=== PATIENT | male | born 1965 | race Caucasian/White ===

== ENCOUNTER 2019-07-29 09:07 | Emergency (ER) | payer MEDICAID ==
[~2019-07-29] VITALS: Ht 167.6 cm; Wt 77.3 kg
[~2019-07-29 09:07] MED LIST: BAC10T PO; DICL75TA PO; RES15C PO; TRAM50TA2 PO
[2019-07-29 10:02] VITALS: BP 115/75
== END 2019-07-29 10:03 | disposition home or self-care (01) ==
LOC: ER 09:07
DX: L98.8 Other specified disorders of the skin and subcutaneous tissue (principal); F12.90 Cannabis use, unspecified, uncomplicated
CPT/HCPCS: 99281

== ENCOUNTER 2019-09-08 13:44 | Inpatient (IN) | payer MEDICAID ==
[~2019-09-08] VITALS: Ht 167.6 cm; Wt 88.5 kg
[2019-09-08] MEDS ORDERED: METF-437 PO (14:24)
[2019-09-08] MEDS ORDERED: ATOR20TA66 PO (14:24)
[2019-09-08] MEDS ORDERED: SULI200T97 PO (14:24)
[2019-09-08] MEDS ORDERED: CARI4.5C PO (14:24)
[2019-09-08 14:33] LABS: BASOPHILS % (AUTO) 0.4 % (0-1); EOSINOPHILS # (AUTO) 0.2 X10'3 (0-0.9); EOSINOPHILS % (AUTO) 1.3 % (0-6); HEMATOCRIT 49.2 % (42.0-52.0); HEMOGLOBIN 17.1 g/dl (14.0-17.9); LYMPHOCYTES # (AUTO) 1.9 X10'3 (1.1-4.8); MEAN CORPUSCULAR HEMOGLOBIN 31.6 PG (27.0-31.0); MEAN CORPUSCULAR HGB CONC 34.7 g/dL (33.0-36.5); MEAN CORPUSCULAR VOLUME 90.9 FL (78-98); MONOCYTES # (AUTO) 0.8 X10'3 (0-0.9); MONOCYTES % (AUTO) 6.8 % (2-12); NEUTROPHILS # (AUTO) 9.5 X10'3 (1.8-7.7); NEUTROPHILS % (AUTO) 76.5 % (42-75); PLATELET COUNT 325 X10'3 (140-440); RED BLOOD COUNT 5.41 X10'6 (4.70-6.10); RED CELL DISTRIBUTION WIDTH 13.7 % (11.5-14.5); WHITE BLOOD COUNT 12.4 X10'3 (4.5-11.0)
--- NOTE | 2019-09-08 14:33 | NUR ---
ATTMPTED TO ASSIST PT UP TO BR. PT UNSTEADY ON FEET, SPEECH SLURED AND GARBLED, PT STATES HES DIZZY BECAUSE "I TOOK PILLS BEFORE I GOT HERE" INQUIRED TO WHAT PILLS? PT STATES I THINK I TOOK 3.5 PILLS OF ZYPREXIA AND A SLEEPING PILL" ROBBIE NOTIFIED
--- NOTE | 2019-09-08 14:34 | NUR ---
PT UNABLE TO GIVEN UA AT THIS TIME. PT GIVEN WATER AND STATES HE WILL ATTEMPT SHORTLY
--- NOTE | 2019-09-08 14:40 | NUR ---
PT COUGHING AND CHOKING AFTER EATING. ROBBIE NOTIFIED CXR ORDERED.
[2019-09-08] MEDS ORDERED: benzonatate 100mg capsule PO ONE (14:45)
[2019-09-08 14:54] LABS: ALANINE AMINOTRANSFERASE 35 U/L (12-78); ALBUMIN 4.4 G/DL (3.4-5.0); ALBUMIN/GLOBULIN RATIO 1.2 (1.1-1.5); ALKALINE PHOSPHATASE 106 IU/L (46-116); ANION GAP 7 (8-16); ASPARTATE AMINO TRANSFERASE 19 U/L (10-37); BILIRUBIN,TOTAL 0.5 MG/DL (0.1-1.0); BLOOD UREA NITROGEN 12 MG/DL (7-18); BUN/CREATININE RATIO 11.8 (5.4-32.0); CALCIUM 8.5 MG/DL (8.5-10.1); CHLORIDE 103 MMOL/L (99-107); CREATININE 1.02 MG/DL (0.60-1.10); GLUCOSE 143 MG/DL (70-104); POTASSIUM 3.4 MMOL/L (3.5-5.1); SODIUM 139 MMOL/L (135-145); TOTAL CARBON DIOXIDE 28.9 MMOL/L (24-32); TOTAL PROTEIN 8.2 G/DL (6.4-8.2); eGFR 76 ML/MIN
--- NOTE | 2019-09-08 15:00 | NUR ---
PT WITH INCREASED SOMULANCE. O2 SATES DOWN TO 84%. BP 90'S HR 110. VIKI MERCHANT AND ROBBIE NOTIFIED WILL MOVE PT TO BED 9 FOR INCREASED LEVEL OF CARE
[2019-09-08 15:02] LABS: ETHANOL < 0.010 GM/DL (0.0-0.010)
[2019-09-08] MEDS ORDERED: normal saline 1000ML IV soln IVB ONE (15:15)
--- NOTE | 2019-09-08 15:35 | NUR ---
PT MOVED FROM ER OF TO BED 09 IN MAIN ER
[2019-09-08] MEDS ORDERED: succinylcholine 20mg/ml inj IV ONE (16:21)
[2019-09-08 16:23] LABS: URINE AMPHETAMINE SCREEN NEGATIVE (Neg); URINE BARBITUATE SCREEN NEGATIVE (Neg); URINE BENZODIAZEPINES SCREEN NEGATIVE (Neg); URINE CANNABINOID SCREEN POSITIVE (Neg); URINE COCAINE SCREEN NEGATIVE (Neg); URINE METHADONE SCREEN NEGATIVE (Neg); URINE OPIATE SCREEN NEGATIVE (Neg); URINE PHENCYCLIDINE SCREEN NEGATIVE (Neg)
--- NOTE | 2019-09-08 16:26 | NUR ---
RN consulted with Sean Hoyos at Poison Control, who suspects Xyprexa overdose. RN was advised to monitor for coma of approx 24 hours, mild hypotension and QT prolongation; q4hr EKG and fluids as appropriate. Secondarily monitor for electrolyte imbalance and bradycardia.
[2019-09-08 16:30] LABS: ACETAMINOPHEN < 2.0 UG/ML (10-30)
[2019-09-08] MEDS ORDERED: ondansetron/PF 4mg/2ml inj IV PRN (18:20)
[2019-09-08] MEDS ORDERED: potassium CL 10mEq/100ml bag 100 ML IV PRN (18:20)
[2019-09-08] MEDS ORDERED: magnesium 2GM in 50ml NS 50 ML IV PRN (18:20)
[2019-09-08] MEDS ORDERED: LORazepam 1 MG tablet PO PRN (18:20)
[2019-09-08] MEDS ORDERED: magnesium Cl slow-release 64mg tablet PO PRN (18:20)
[2019-09-08] MEDS ORDERED: dextrose 50%-water 50ml dispensing syringe IV PRN ×3 (18:20→18:45)
[2019-09-08] MEDS ORDERED: potassium Cl 20 mEq SR tablet PO PRN ×2 (18:20)
[2019-09-08] MEDS ORDERED: acetaminophen 325mg tablet PO PRN ×2 (18:20)
[2019-09-08] MEDS ORDERED: LORazepam 2 mg/ml vial IV PRN (18:20)
[2019-09-08] MEDS ORDERED: magnesium 4gm in 100ml NS 100 ML IV PRN (18:20)
--- NOTE | 2019-09-08 18:43 | NUR ---
Pt is sleeping with snoring respirations. Pt is maintaining his own airway. Pt has stable vitals. Pt is awaiting inpatient bed assignment.
[2019-09-08] MEDS ORDERED: glucagon, human recombinant 1mg kit SUBCUT PRN (18:45)
[2019-09-08] MEDS ORDERED: dextrose ORAL solution 15 GM/59 ML bottle PO PRN ×2 (18:45)
[2019-09-08] MEDS ORDERED: insulin Lispro (HumaLOG) vial - multi-dose SQ SCH (18:45)
[2019-09-08] MEDS ORDERED: MESSAGE TO PHARMACY PO ONE (18:45)
[2019-09-08] MEDS: K and/or MAG REPLACEMENT MC SCH (20:00)
[2019-09-08] MEDS: normal saline 1000ml 1,000 ML IV SCH (20:02)
[2019-09-08 20:11] LABS: ABG BASE EXCESS -1.6 mmol/L (-2.0-3.0); ABG HCO3 23.8 mmol/L (22.0-26.0); ABG OXYGEN SATURATION 92.5 % (95-98); ABG PCO2 (T) 42.6 mmHg (35.0-45.0); ABG PH (T) 7.365 (7.350-7.450); ABG PO2 (T) 65.4 mmHg (83-108); FCOHb 5.4 % (0.5-1.5); FO2Hb 87.5 % (94-100); TOTAL HEMOGLOBIN 15.7 G/dl (14.0-17.9)
--- NOTE | 2019-09-08 20:19 | NUR ---
Pt confused and stood at the foot of the bed attempting to void. Pt given a urinal and attempted to assist with the urinal. Pt reports I cannot pee with you in here. Pt got back in the bed and reports he cannot void at this time. Pt returned to supine position and started snoring again immediately.
[2019-09-08] MEDS: insulin glargine (Lantus) pen - multi-dose SQ SCH (21:00)
[2019-09-08] MEDS: potassium CL 10mEq/100ml bag 100 ML IV PRN ×2 (21:35→22:37)
[2019-09-08] MEDS: heparin, porcine 5000 units/ml vial SQ SCH (21:38)
--- NOTE | 2019-09-08 22:09 | NUR ---
Pt is resting on the gurney with even and unlabored respirations.
[2019-09-08 23:07] LABS: CLARITY,URINE CLEAR (Clear); COLOR,URINE YELLOW (Yellow); GLUCOSE, URINE NEGATIVE (Neg); KETONES,URINE TRACE mg/dl (Neg); LEUKOCYTE ESTERASE ,URINE NEGATIVE (Neg); NITRITES, URINE NEGATIVE (Neg); OCCULT BLOOD,URINE NEGATIVE (Neg); PROTEIN,URINE NEGATIVE (Neg); UROBILINOGEN,URINE 0.2 E.U/dL (0.2-1.0)
[2019-09-08 23:08] LABS: UA COLLECTION TYPE URINAL
--- NOTE | 2019-09-08 23:44 | NUR ---
Krystal from Poison control phoned and inquired about the patient's status. She recommends redrawing the salicylate level to ensure the level is not rising. Provider will be notified.
[2019-09-09] MEDS: potassium CL 10mEq/100ml bag 100 ML IV PRN
--- NOTE | 2019-09-09 00:16 | NUR ---
Order for salicylate level entered based on recommendation of Poison control and unable to determine if the patient took other unknown substances and to insure the level is not trending upward.
[2019-09-09] MEDS: normal saline 1000ml 1,000 ML IV SCH (04:17)
--- NOTE | 2019-09-09 06:26 | NUR ---
PT RESTING ON RIGHT SIDE RR EQUAL AND UNLABORED
[2019-09-09] MEDS: K and/or MAG REPLACEMENT MC SCH ×2 (08:00→20:00)
--- NOTE | 2019-09-09 08:31 | NUR ---
PT STANDING UP IN HALLWAY, IV PULLED OUT, ALL VS EQUIPTMENT LAYING ON FLOOR. ORIENTED PT BACK TO ROOM. PT ORIENTED TO NAME, CONFUSED TO PLACE, TIME, OR EVENT. INFORMED MAYUR DREW OF PT OOB AND ROOM. NO SITTER AVALIBLE. CALL PLACED TO DR CONCEPCIÓN ORDOÑEZ POSSIBILITY OF SOFT RESTRAINTS. VERBAL ORDER GIVEN
[2019-09-09] MEDS: CARIPRAZINE 1.5 MG CAPSULE PO SCH ×2 (08:34→11:41)
[2019-09-09] MEDS: atorvastatin 20mg tablet PO SCH (08:35)
[2019-09-09] MEDS: heparin, porcine 5000 units/ml vial SQ SCH ×2 (10:12→20:00)
--- NOTE | 2019-09-09 10:33 | NUR ---
PT AWAKE, CONFUSED, REFUSING IV TO BE REPLACED, SITTING ON FLOOR. INFORMED PT HE WILL BE ADMITTED UP STAIRS. PT WITH CONTINUED QUESTIONS RE: VS, PO MEDS. PT INFORMED BECAUSE HE OD ON ZYPREXA.
--- NOTE | 2019-09-09 10:50 | NUR ---
PT REFUSING IV. WILL NOT COOPERATED AND IS ARGUMENTATIVE ABOUT HAVINE AND IV.
[2019-09-09 11:00] VITALS: BP 138/75
--- NOTE | 2019-09-09 11:15 | NUR ---
Received patient from ER. Patient refusing IV- thinks "we are trying to poison him". Will make MD aware.
--- NOTE | 2019-09-09 11:20 | NUR ---
PAGER ID: [phone] MESSAGE: [phone] Hubert Higginbotham- Patient noted with paranoia and refusing IV. States we "are trying to poison him". Padmaja [phone]
--- NOTE | 2019-09-09 11:30 | NUR ---
Spoke with MD Velázquez. Gave order for no IV and okay to adminster Milka.
--- NOTE | 2019-09-09 12:16 | NUR ---
DM consult: Pt with A1c 5.8, DM education not warranted at this time. Will continue to follow. Addendum: 09/09/19 at [address] Amended: Links added.
[2019-09-09 13:34] LABS: BASOPHILS % (AUTO) 0.2 % (0-1); EOSINOPHILS # (AUTO) 0.1 X10'3 (0-0.9); EOSINOPHILS % (AUTO) 1.2 % (0-6); HEMATOCRIT 46.4 % (42.0-52.0); LYMPHOCYTES # (AUTO) 2.3 X10'3 (1.1-4.8); LYMPHOCYTES % (AUTO) 24.9 % (21-51); MEAN CORPUSCULAR HEMOGLOBIN 31.7 PG (27.0-31.0); MEAN CORPUSCULAR HGB CONC 34.4 g/dL (33.0-36.5); MEAN PLATELET VOLUME 7.1 FL (7.4-10.4); MONOCYTES # (AUTO) 0.8 X10'3 (0-0.9); MONOCYTES % (AUTO) 8.4 % (2-12); NEUTROPHILS % (AUTO) 65.3 % (42-75); PLATELET COUNT 273 X10'3 (140-440); RED BLOOD COUNT 5.05 X10'6 (4.70-6.10); RED CELL DISTRIBUTION WIDTH 13.8 % (11.5-14.5); WHITE BLOOD COUNT 9.1 X10'3 (4.5-11.0)
[2019-09-09 13:47] LABS: ALANINE AMINOTRANSFERASE 29 U/L (12-78); ALBUMIN 3.8 G/DL (3.4-5.0); ALBUMIN/GLOBULIN RATIO 1.1 (1.1-1.5); ALKALINE PHOSPHATASE 100 IU/L (46-116); ANION GAP 4 (8-16); ASPARTATE AMINO TRANSFERASE 15 U/L (10-37); BILIRUBIN,TOTAL 0.4 MG/DL (0.1-1.0); BLOOD UREA NITROGEN 9 MG/DL (7-18); BUN/CREATININE RATIO 11.7 (5.4-32.0); CALCIUM 8.4 MG/DL (8.5-10.1); CHLORIDE 105 MMOL/L (99-107); CREATININE 0.77 MG/DL (0.60-1.10); GLUCOSE 102 MG/DL (70-104); MAGNESIUM 2.2 MG/DL (1.5-2.4); POTASSIUM 3.5 MMOL/L (3.5-5.1); SODIUM 141 MMOL/L (135-145); TOTAL PROTEIN 7.3 G/DL (6.4-8.2); eGFR > 90 ML/MIN
--- NOTE | 2019-09-09 15:07 | NUR ---
Spoke with MD Velázquez about patients paranoia and delusions. Dr. Velázquez will talk to Behavioral health MD microsoft solutions architect for psych eval.
--- NOTE | 2019-09-09 15:07 | NUR ---
PAGER ID: [phone] MESSAGE: [phone] Hubert Higginbotham- Can we get a psych eval for patient? Padmaja [phone]
--- NOTE | 2019-09-09 16:00 | NUR ---
Patient refused EKG, patient is anxious ativan 1mg PO given.
--- NOTE | 2019-09-09 16:39 | NUR ---
Jose Luis from behavioral health is here to evaluate patient. Jose Luis spoke on the phone with MD Velázquez. He is going to speak with Andrew Atkins to see if they can place him on a behavioral health unit elsewhere since there are no beds available on the 3rd floor.
--- NOTE | 2019-09-09 17:00 | NUR ---
Patient keeps removing tele monitor, states someone is trying to watch him.
[2019-09-09] MEDS ORDERED: LORazepam 1 MG tablet PO ONE (17:30)
--- NOTE | 2019-09-09 17:30 | NUR ---
Patient still refusing to wear tele monitor.
[2019-09-09 18:00] VITALS: BP 157/83
--- NOTE | 2019-09-09 18:39 | NUR ---
Problems reprioritized. Patient report given, questions answered & plan of care reviewed with Briana ESTES.
--- NOTE | 2019-09-09 19:02 | NUR ---
ASSUMED CARE OF PATIENT WITH VERBAL REPORT FROM MOSHE ESTES
[2019-09-09] MEDS: LORazepam 1 MG tablet PO SCH (19:52)
--- NOTE | 2019-09-09 20:00 | NUR ---
Patient refused scheduled EKG.
[2019-09-09] MEDS: insulin glargine (Lantus) pen - multi-dose SQ SCH (21:00)
--- NOTE | 2019-09-09 21:00 | NUR ---
Patient refused blood glucose test.
--- NOTE | 2019-09-09 22:00 | NUR ---
Patient refused 2200 vitals.
--- NOTE | 2019-09-10 | NUR ---
Patient refused 0000 EKG.
--- NOTE | 2019-09-10 00:08 | NUR ---
I faxed over the packet requested by Tony BOWERS from [facility], so patient can be seen by [facility] and placed. The charge nurse from [facility] said to fax the packet to them and they would contact the appropriate person for this consultation.
[2019-09-10] MEDS: LORazepam 1 MG tablet PO SCH ×4 (01:46→20:21)
--- NOTE | 2019-09-10 02:15 | NUR ---
I was observing the patient and he is biting his toes and fingernails because he doesn't have nail clippers; he is biting them hard I tried to discourage this behavior. He started getting verbally argumentative about not being able to get something to cut his nails with. I educated him on what the hospital has available and that it is not safe to be biting his fingers/ toes so hard. He also has been talking to " Natan " and saying that " Natan " is making him do things he doesn't want to do. He is Telling staff that they need to watch out because they are going to be harmed because the staff is helping him.
--- NOTE | 2019-09-10 06:26 | NUR ---
Problems reprioritized. Patient report given, questions answered & plan of care reviewed with Chitra ESTES.
--- NOTE | 2019-09-10 06:30 | NUR ---
NO CURRENT VS, PATIENT REFUSES
--- NOTE | 2019-09-10 06:31 | NUR ---
I HAVE REVIEWED AND AGREE WITH THE ASSESSMENT AND CARE GIVEN BY ZEINA RIOS
[2019-09-10] MEDS: heparin, porcine 5000 units/ml vial SQ SCH ×2 (08:00→20:00)
[2019-09-10] MEDS: K and/or MAG REPLACEMENT MC SCH ×2 (08:00→20:00)
[2019-09-10] MEDS: CARIPRAZINE 1.5 MG CAPSULE PO SCH (09:31)
[2019-09-10] MEDS: atorvastatin 20mg tablet PO SCH (09:33)
[2019-09-10 10:00] VITALS: BP 135/80
--- NOTE | 2019-09-10 10:15 | NUR ---
Call from Poison Control update given, question answered to the best of my ability. Patient continues to refuse lab draw or EKG secondary to paranoia and being framed for murder.
[2019-09-10 15:00] VITALS: BP 148/80
[2019-09-10 18:00] VITALS: BP 121/70
--- NOTE | 2019-09-10 18:13 | NUR ---
Report to Briana Sainz RN
[2019-09-10] MEDS: insulin glargine (Lantus) pen - multi-dose SQ SCH (21:00)
[2019-09-10 22:00] VITALS: BP 128/74
[2019-09-11 02:00] VITALS: BP 116/84
[2019-09-11] MEDS: LORazepam 1 MG tablet PO SCH ×3 (02:10→15:41)
[2019-09-11 06:00] VITALS: BP 124/86
--- NOTE | 2019-09-11 06:37 | NUR ---
Problems reprioritized. Patient report given, questions answered & plan of care reviewed with SWAPNA ESTES AND ROBERTON FELIBERTO RIVERA.
[2019-09-11 07:05] LABS: BASOPHILS % (AUTO) 0.2 % (0-1); EOSINOPHILS # (AUTO) 0.1 X10'3 (0-0.9); EOSINOPHILS % (AUTO) 2.1 % (0-6); HEMATOCRIT 47.1 % (42.0-52.0); HEMOGLOBIN 16.4 g/dl (14.0-17.9); LYMPHOCYTES # (AUTO) 1.7 X10'3 (1.1-4.8); LYMPHOCYTES % (AUTO) 24.9 % (21-51); MEAN CORPUSCULAR HEMOGLOBIN 31.7 PG (27.0-31.0); MEAN CORPUSCULAR HGB CONC 34.9 g/dL (33.0-36.5); MEAN CORPUSCULAR VOLUME 90.8 FL (78-98); MONOCYTES # (AUTO) 0.6 X10'3 (0-0.9); MONOCYTES % (AUTO) 8.3 % (2-12); NEUTROPHILS # (AUTO) 4.3 X10'3 (1.8-7.7); NEUTROPHILS % (AUTO) 64.5 % (42-75); PLATELET COUNT 277 X10'3 (140-440); RED BLOOD COUNT 5.19 X10'6 (4.70-6.10); RED CELL DISTRIBUTION WIDTH 13.8 % (11.5-14.5); WHITE BLOOD COUNT 6.7 X10'3 (4.5-11.0)
[2019-09-11 07:26] LABS: ALANINE AMINOTRANSFERASE 32 U/L (12-78); ALBUMIN 3.9 G/DL (3.4-5.0); ALKALINE PHOSPHATASE 95 IU/L (46-116); ANION GAP 8 (8-16); ASPARTATE AMINO TRANSFERASE 18 U/L (10-37); BILIRUBIN,TOTAL 0.5 MG/DL (0.1-1.0); BLOOD UREA NITROGEN 8 MG/DL (7-18); BUN/CREATININE RATIO 10.7 (5.4-32.0); CALCIUM 8.7 MG/DL (8.5-10.1); CHLORIDE 103 MMOL/L (99-107); CREATININE 0.75 MG/DL (0.60-1.10); GLUCOSE 123 MG/DL (70-104); MAGNESIUM 2.2 MG/DL (1.5-2.4); POTASSIUM 3.6 MMOL/L (3.5-5.1); SODIUM 140 MMOL/L (135-145); TOTAL CARBON DIOXIDE 28.9 MMOL/L (24-32); TOTAL PROTEIN 7.7 G/DL (6.4-8.2); eGFR > 90 ML/MIN
[2019-09-11] MEDS: K and/or MAG REPLACEMENT MC SCH (08:00)
[2019-09-11] MEDS: heparin, porcine 5000 units/ml vial SQ SCH (08:00)
[2019-09-11] MEDS: atorvastatin 20mg tablet PO SCH (08:01)
[2019-09-11] MEDS: CARIPRAZINE 1.5 MG CAPSULE PO SCH (08:02)
[2019-09-11 10:00] VITALS: BP 138/85
== END 2019-09-11 16:18 | DRG 812 ==
LOC: ER 13:44 → ED HOLD 18:17 → EDBEDREQ 09-09 09:01 → ORTHO 4S 09-09 11:03
PROVIDERS: ADMIT Internal Medicine; ATTEND Family Medicine
DX: T43.594A Poisoning by other antipsychotics and neuroleptics, undetermined, initial encounter (principal); G93.41 Metabolic encephalopathy; E11.9 Type 2 diabetes mellitus without complications; F20.9 Schizophrenia, unspecified; E78.00 Pure hypercholesterolemia, unspecified; Z60.2 Problems related to living alone; E78.5 Hyperlipidemia, unspecified; F12.90 Cannabis use, unspecified, uncomplicated; F32.9 Major depressive disorder, single episode, unspecified; F41.9 Anxiety disorder, unspecified; Y92.89 Other specified places as the place of occurrence of the external cause
CPT/HCPCS: 36415; 36600; 71045; 80053; 80305; 80320; 80329; 81003; 82803; 82948; 83036; 83605; 83735; 84443; 85018; 85025; 87040; 87081; 93005; 93308; 97110; 97116; 97161; 99285; G0378; J0330; J1644; J1815; J3480; J7030

== ENCOUNTER 2019-09-16 06:10 | Emergency (ER) | payer MEDICAID ==
[~2019-09-16] VITALS: Ht 167.6 cm; Wt 90.9 kg
[~2019-09-16 06:10] MED LIST changes: +ATOR20TA66 PO; -BAC10T PO; +CARI4.5C PO; -DICL75TA PO; +NICO-668 BC; -RES15C PO; +SULI200T97 PO; -TRAM50TA2 PO
[2019-09-16 06:11] VITALS: BP 164/104
[2019-09-16] MEDS ORDERED: LORazepam 1 MG tablet PO ONE (07:55)
[2019-09-16 08:01] LABS: BASOPHILS % (AUTO) 0.3 % (0-1); EOSINOPHILS # (AUTO) 0.1 X10'3 (0-0.9); EOSINOPHILS % (AUTO) 0.9 % (0-6); HEMATOCRIT 47.7 % (42.0-52.0); HEMOGLOBIN 16.9 g/dl (14.0-17.9); LYMPHOCYTES % (AUTO) 21.4 % (21-51); MEAN CORPUSCULAR HEMOGLOBIN 32.3 PG (27.0-31.0); MEAN CORPUSCULAR HGB CONC 35.4 g/dL (33.0-36.5); MEAN CORPUSCULAR VOLUME 91.2 FL (78-98); MEAN PLATELET VOLUME 6.9 FL (7.4-10.4); MONOCYTES # (AUTO) 0.8 X10'3 (0-0.9); MONOCYTES % (AUTO) 8.6 % (2-12); NEUTROPHILS # (AUTO) 6.3 X10'3 (1.8-7.7); NEUTROPHILS % (AUTO) 68.8 % (42-75); PLATELET COUNT 285 X10'3 (140-440); RED BLOOD COUNT 5.24 X10'6 (4.70-6.10); RED CELL DISTRIBUTION WIDTH 13.7 % (11.5-14.5); WHITE BLOOD COUNT 9.2 X10'3 (4.5-11.0)
[2019-09-16 08:14] LABS: ALANINE AMINOTRANSFERASE 37 U/L (12-78); ALBUMIN 4.6 G/DL (3.4-5.0); ALBUMIN/GLOBULIN RATIO 1.2 (1.1-1.5); ALKALINE PHOSPHATASE 100 IU/L (46-116); ANION GAP 9 (8-16); ASPARTATE AMINO TRANSFERASE 28 U/L (10-37); BILIRUBIN,TOTAL 0.6 MG/DL (0.1-1.0); BLOOD UREA NITROGEN 12 MG/DL (7-18); BUN/CREATININE RATIO 12.8 (5.4-32.0); CALCIUM 9.1 MG/DL (8.5-10.1); CHLORIDE 102 MMOL/L (99-107); CREATININE 0.94 MG/DL (0.60-1.10); GLUCOSE 121 MG/DL (70-104); POTASSIUM 3.7 MMOL/L (3.5-5.1); SODIUM 141 MMOL/L (135-145); TOTAL CARBON DIOXIDE 30.4 MMOL/L (24-32); TOTAL PROTEIN 8.3 G/DL (6.4-8.2); eGFR 84 ML/MIN
[2019-09-16 08:22] LABS: ETHANOL < 0.010 GM/DL (0.0-0.010)
[2019-09-16 08:25] LABS: CLARITY,URINE CLEAR (Clear); COLOR,URINE YELLOW (Yellow); GLUCOSE, URINE NEGATIVE (Neg); KETONES,URINE NEGATIVE (Neg); LEUKOCYTE ESTERASE ,URINE NEGATIVE (Neg); NITRITES, URINE NEGATIVE (Neg); OCCULT BLOOD,URINE NEGATIVE (Neg); PH,URINE 8.5 (4.8-8.0); PROTEIN,URINE NEGATIVE (Neg); UA COLLECTION TYPE CLN CATCH MIDSTREAM; UROBILINOGEN,URINE 0.2 E.U/dL (0.2-1.0)
[2019-09-16 08:42] LABS: URINE AMPHETAMINE SCREEN NEGATIVE (Neg); URINE BARBITUATE SCREEN NEGATIVE (Neg); URINE BENZODIAZEPINES SCREEN NEGATIVE (Neg); URINE CANNABINOID SCREEN POSITIVE (Neg); URINE COCAINE SCREEN NEGATIVE (Neg); URINE METHADONE SCREEN NEGATIVE (Neg); URINE OPIATE SCREEN NEGATIVE (Neg); URINE PHENCYCLIDINE SCREEN NEGATIVE (Neg)
[2019-09-16] MEDS ORDERED: LORA2TAB96 PO (08:46)
== END 2019-09-16 09:22 | disposition home or self-care (01) ==
LOC: ER 06:11
DX: G47.00 Insomnia, unspecified (principal); F29 Unspecified psychosis not due to a substance or known physiological condition; G89.29 Other chronic pain; F31.9 Bipolar disorder, unspecified; F20.9 Schizophrenia, unspecified; F12.90 Cannabis use, unspecified, uncomplicated; Z60.2 Problems related to living alone; Z79.899 Other long term (current) drug therapy
CPT/HCPCS: 36415; 80053; 80305; 80320; 81003; 84443; 85025; 99283

== ENCOUNTER 2019-09-18 09:36 | Emergency (ER) | payer MEDICAID ==
[~2019-09-18 09:36] MED LIST changes: +LORA2TAB96 PO
== END 2019-09-18 10:15 | disposition left against medical advice (07) ==
LOC: ER 09:37
DX: Z76.0 Encounter for issue of repeat prescription (principal); Z53.21 Procedure and treatment not carried out due to patient leaving prior to being seen by health care provider

== ENCOUNTER 2019-09-29 09:13 | Emergency (ER) | payer MEDICAID ==
[~2019-09-29] VITALS: Ht 167.6 cm; Wt 85.0 kg
[2019-09-29 10:07] LABS: BASOPHILS % (AUTO) 0.2 % (0-1); EOSINOPHILS # (AUTO) 0.1 X10'3 (0-0.9); EOSINOPHILS % (AUTO) 1.6 % (0-6); HEMATOCRIT 47.2 % (42.0-52.0); HEMOGLOBIN 15.9 g/dl (14.0-17.9); LYMPHOCYTES # (AUTO) 1.3 X10'3 (1.1-4.8); LYMPHOCYTES % (AUTO) 15.5 % (21-51); MEAN CORPUSCULAR HEMOGLOBIN 31.2 PG (27.0-31.0); MEAN CORPUSCULAR HGB CONC 33.7 g/dL (33.0-36.5); MEAN CORPUSCULAR VOLUME 92.4 FL (78-98); MONOCYTES # (AUTO) 0.5 X10'3 (0-0.9); NEUTROPHILS # (AUTO) 6.5 X10'3 (1.8-7.7); NEUTROPHILS % (AUTO) 76.7 % (42-75); PLATELET COUNT 285 X10'3 (140-440); WHITE BLOOD COUNT 8.5 X10'3 (4.5-11.0)
[2019-09-29 10:22] LABS: ALANINE AMINOTRANSFERASE 52 U/L (12-78); ALBUMIN/GLOBULIN RATIO 1.1 (1.1-1.5); ALKALINE PHOSPHATASE 109 IU/L (46-116); ANION GAP 8 (8-16); ASPARTATE AMINO TRANSFERASE 32 U/L (10-37); BILIRUBIN,TOTAL 0.4 MG/DL (0.1-1.0); BLOOD UREA NITROGEN 13 MG/DL (7-18); BUN/CREATININE RATIO 14.6 (5.4-32.0); CALCIUM 8.4 MG/DL (8.5-10.1); CHLORIDE 104 MMOL/L (99-107); CREATININE 0.89 MG/DL (0.60-1.10); GLUCOSE 179 MG/DL (70-104); POTASSIUM 3.5 MMOL/L (3.5-5.1); SODIUM 142 MMOL/L (135-145); TOTAL CARBON DIOXIDE 30.3 MMOL/L (24-32); TOTAL PROTEIN 7.7 G/DL (6.4-8.2); eGFR 89 ML/MIN
[2019-09-29 10:25] LABS: ETHANOL < 0.010 GM/DL (0.0-0.010)
[2019-09-29 10:49] LABS: URINE AMPHETAMINE SCREEN NEGATIVE (Neg); URINE BARBITUATE SCREEN NEGATIVE (Neg); URINE BENZODIAZEPINES SCREEN NEGATIVE (Neg); URINE CANNABINOID SCREEN POSITIVE (Neg); URINE COCAINE SCREEN NEGATIVE (Neg); URINE METHADONE SCREEN NEGATIVE (Neg); URINE OPIATE SCREEN NEGATIVE (Neg); URINE PHENCYCLIDINE SCREEN NEGATIVE (Neg)
--- NOTE | 2019-09-29 12:44 | NUR ---
pt in no distress. waiting on next steps
--- NOTE | 2019-09-29 13:06 | NUR ---
pt sleeping on gurney. in no obvious distress.
--- NOTE | 2019-09-29 13:13 | NUR ---
Spoke with [facility] on the telephone; need toxicology results faxed. Molder Operator to send report over before clinician will come evaluate pt.
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
--- NOTE | 2019-09-29 15:27 | NUR ---
5150 has been written for the pt.
[2019-09-29] MEDS ORDERED: NICO-668 MM (15:49)
[2019-09-29] MEDS ORDERED: LORA2TAB96 PO (15:49)
--- NOTE | 2019-09-29 15:56 | NUR ---
med rec faxed to pharmacy
[2019-09-29] MEDS ORDERED: NICOTINE POLACRILEX 2 MG LOZENGE BC PRN (16:10)
--- NOTE | 2019-09-29 16:26 | NUR ---
PT AMB WITH STEADY GAIT TO OVERFLOW
[2019-09-29] MEDS ORDERED: LORazepam 1 MG tablet PO PRN (16:58)
[2019-09-29 17:04] LABS: CLARITY,URINE CLEAR (Clear); COLOR,URINE YELLOW (Yellow); GLUCOSE, URINE 100 mg/dl (Neg); KETONES,URINE TRACE mg/dl (Neg); LEUKOCYTE ESTERASE ,URINE NEGATIVE (Neg); NITRITES, URINE NEGATIVE (Neg); OCCULT BLOOD,URINE NEGATIVE (Neg); PH,URINE 6.5 (4.8-8.0); PROTEIN,URINE NEGATIVE (Neg); UROBILINOGEN,URINE 0.2 E.U/dL (0.2-1.0)
[2019-09-29 17:05] LABS: UA COLLECTION TYPE CLN CATCH MIDSTREAM
--- NOTE | 2019-09-29 17:19 | NUR ---
PT RESTING QUIETLY ON BED
--- NOTE | 2019-09-29 17:54 | NUR ---
GAVE REPORT TO CLINICIAN AT [facility]
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
--- NOTE | 2019-09-29 18:09 | NUR ---
PT HAS BEEN ACCEPTED BY [facility] BY KIKI VANESSA AT 1755, ETA FOR PT TO LEAVE IN 20 TO 25 MINUTES (APPROX 1829)
--- NOTE | 2019-09-29 18:34 | NUR ---
Assumed care of patient, pt. sitting up in bed eating dinner at this time. RR even and unlabored.
--- NOTE | 2019-09-29 18:50 | NUR ---
Pt. discharged to [facility], left in transfer van accompanied by automobile drivers and security. Pt. is calm and cooperative with discharge. Called and gave report to MEERA Keyes
[2019-09-29 19:53] VITALS: BP 123/80
[2019-09-30] MEDS ORDERED: atorvastatin 20mg tablet PO SCH (08:00)
[2019-09-30] MEDS ORDERED: CARIPRAZINE 1.5 MG CAPSULE PO SCH (08:00)
== END 2019-09-29 19:58 ==
LOC: ER 09:13
DX: F32.9 Major depressive disorder, single episode, unspecified (principal); G89.29 Other chronic pain; F20.9 Schizophrenia, unspecified; F12.90 Cannabis use, unspecified, uncomplicated; Z60.2 Problems related to living alone; Z88.8 Allergy status to other drugs, medicaments and biological substances; Z79.899 Other long term (current) drug therapy
CPT/HCPCS: 36415; 80053; 80305; 80320; 81003; 85025; 99285

== ENCOUNTER 2020-04-17 18:23 | Emergency (ER) | payer MEDICAID ==
[~2020-04-17] VITALS: Ht 165.1 cm; Wt 70.0 kg
[~2020-04-17 18:23] MED LIST changes: -ATOR20TA66 PO; -CARI4.5C PO; -LORA2TAB96 PO; -NICO-668 BC; +NO HOME MEDS; +OLAN20TA34 PO; +OLAN5TAB26 PO; +TRAZ-251 PO
[2020-04-17 19:09] LABS: BASOPHILS % (AUTO) 0.4 % (0-1); EOSINOPHILS # (AUTO) 0.2 X10'3 (0-0.9); EOSINOPHILS % (AUTO) 2.6 % (0-6); HEMATOCRIT 42.4 % (42.0-52.0); HEMOGLOBIN 14.5 g/dl (14.0-17.9); LYMPHOCYTES % (AUTO) 34.1 % (21-51); MEAN CORPUSCULAR HEMOGLOBIN 31.7 PG (27.0-31.0); MEAN CORPUSCULAR HGB CONC 34.2 g/dL (33.0-36.5); MEAN CORPUSCULAR VOLUME 92.4 FL (78-98); MEAN PLATELET VOLUME 6.5 FL (7.4-10.4); MONOCYTES # (AUTO) 0.4 X10'3 (0-0.9); MONOCYTES % (AUTO) 7.3 % (2-12); NEUTROPHILS # (AUTO) 3.3 X10'3 (1.8-7.7); NEUTROPHILS % (AUTO) 55.6 % (42-75); PLATELET COUNT 311 X10'3 (140-440); RED BLOOD COUNT 4.59 X10'6 (4.70-6.10); RED CELL DISTRIBUTION WIDTH 13.3 % (11.5-14.5)
[2020-04-17] MEDS ORDERED: SULI200T97 PO (19:15)
[2020-04-17] MEDS ORDERED: OLAN20TA34 PO (19:15)
[2020-04-17] MEDS ORDERED: OLAN5TAB5 PO (19:15)
[2020-04-17 19:24] LABS: ALANINE AMINOTRANSFERASE 20 U/L (12-78); ALBUMIN/GLOBULIN RATIO 1.1 (1.1-1.5); ALKALINE PHOSPHATASE 87 IU/L (46-116); ANION GAP 5 (8-16); ASPARTATE AMINO TRANSFERASE 13 U/L (10-37); BILIRUBIN,TOTAL 0.4 MG/DL (0.1-1.0); BLOOD UREA NITROGEN 11 MG/DL (7-18); BUN/CREATININE RATIO 12.5 (5.4-32.0); CALCIUM 8.5 MG/DL (8.5-10.1); CHLORIDE 106 MMOL/L (99-107); CREATININE 0.88 MG/DL (0.60-1.10); GLUCOSE 82 MG/DL (70-104); POTASSIUM 3.4 MMOL/L (3.5-5.1); SODIUM 142 MMOL/L (135-145); TOTAL CARBON DIOXIDE 31.4 MMOL/L (24-32); TOTAL PROTEIN 7.5 G/DL (6.4-8.2); eGFR 90 ML/MIN
[2020-04-17 19:30] LABS: PARTIAL THROMBOPLASTIN TIME 33 SECONDS (22-32)
--- NOTE | 2020-04-17 19:59 | NUR ---
PATIENT STATES " I HAVE 2 DIABETES." MEDICAL HX SHOWS TYPE 2 DM, PER ZAHUER ORDER CARB CONTROLLED DIET
[2020-04-17] MEDS ORDERED: olanzapine 10mg tablet PO SCH (21:00)
--- NOTE | 2020-04-17 21:41 | NUR ---
resting in bed, eyes closed respirations even. in no apparent distress
--- NOTE | 2020-04-18 04:01 | NUR ---
patient sleeping undisturbed
--- NOTE | 2020-04-18 05:48 | NUR ---
Patient has been sleeping. Attempted to retreive urine, siad he couldn't go.
[2020-04-18 05:57] VITALS: BP 97/53
[2020-04-18 06:35] LABS: CLARITY,URINE CLEAR (Clear); COLOR,URINE YELLOW (Yellow); GLUCOSE, URINE NEGATIVE (Neg); KETONES,URINE NEGATIVE (Neg); LEUKOCYTE ESTERASE ,URINE NEGATIVE (Neg); NITRITES, URINE NEGATIVE (Neg); OCCULT BLOOD,URINE NEGATIVE (Neg); PROTEIN,URINE NEGATIVE (Neg); UA COLLECTION TYPE CLN CATCH MIDSTREAM; UROBILINOGEN,URINE 0.2 E.U/dL (0.2-1.0)
[2020-04-18 06:46] LABS: URINE AMPHETAMINE SCREEN NEGATIVE (Neg); URINE BARBITUATE SCREEN NEGATIVE (Neg); URINE BENZODIAZEPINES SCREEN NEGATIVE (Neg); URINE CANNABINOID SCREEN POSITIVE (Neg); URINE COCAINE SCREEN NEGATIVE (Neg); URINE METHADONE SCREEN NEGATIVE (Neg); URINE OPIATE SCREEN NEGATIVE (Neg); URINE PHENCYCLIDINE SCREEN NEGATIVE (Neg)
[2020-04-18] MEDS ORDERED: OLANZapine 5mg rapidly disint. tablet PO SCH (08:00)
--- NOTE | 2020-04-18 08:27 | NUR ---
PT SLEEPING, WOKEN FOR AM MEDICATIONS, SAFETY BREAKFAST TRAY DELIVERED TO BEDSIDE.
--- NOTE | 2020-04-18 08:51 | NUR ---
[facility] OFFICE CALLED, NO PACKET HAS BEEN RECEIVED AND REQUESTING AN ETOH LEVEL ADDED TO LABS. ETOH LEVEL ADDED REQUESTED AND CYBER REVERSE ENGINEER TO SEND PACKET.
--- NOTE | 2020-04-18 09:10 | NUR ---
SPOKE WITH PT, HE STATES THAT HE STILL IS HAVING THOUGHT OF SI AND HEARING VOICES. PT STATES THAT HE HAS TO DO WHAT THE VOICES ARE TELLING HIM; "I HAVE NOT CONTROL OF THE VOICES AND WHAT THEY ARE SAYING". PT STATES THAT THEY TELL HIM TO WALK OUT IN THE ROAD. PT STATES THAT HE IS ALWAYS HAVING SI THOUGHTS, THAT HE WOULD BE "BETTER OFF ". PT HAS NO SPACIFIC PLAN BUT STATES THAT HE HAS MADE ATTEMPTS BEFORE AND HAS WALKED OUT INTO TRAFFIC.
[2020-04-18 09:53] LABS: ETHANOL < 0.010 GM/DL (0.0-0.010)
--- NOTE | 2020-04-18 10:00 | NUR ---
ETOH RESULTS POSTED FROM LAB, RESULTS FAXED TO [facility] OFFICE AND [facility] OFFICE WAS NOTIFIED.
--- NOTE | 2020-04-18 10:56 | NUR ---
ANGELIQUE FROM [facility] AT BEDSIDE FOR EVALUATION.
--- NOTE | 2020-04-18 13:41 | NUR ---
Staff Nurse at [facility] in [place] phoned to inquire about the patient's status to consider accepting him for admission to the facility. He will review the patient's status with the Physician and will phone to let us know of their decision.
--- NOTE | 2020-04-18 13:59 | NUR ---
[facility] OFFICE CALLED WITH ACCETANCE TO [facility]. DR KEN LAYNE ACCEPTED, TRANSPORT ETA:1700
--- NOTE | 2020-04-18 17:06 | NUR ---
LIVIER, SALES DESIGNER FROM [facility] IS HERE TO TRANSPORT PT TO [facility]. PT'S BELONGINGS RETURNED AND PT DRESSED. SECURITY STANDING BY FOR EXCORT TO TRANSPORT VAN
== END 2020-04-18 17:12 ==
LOC: ER 18:23
DX: R45.851 Suicidal ideations (principal); G89.29 Other chronic pain; F31.9 Bipolar disorder, unspecified; F20.9 Schizophrenia, unspecified; F12.90 Cannabis use, unspecified, uncomplicated; Z60.2 Problems related to living alone; Z88.8 Allergy status to other drugs, medicaments and biological substances; Z79.899 Other long term (current) drug therapy
CPT/HCPCS: 36415; 80053; 80305; 80320; 81003; 85025; 85610; 85730; 99285

== ENCOUNTER 2022-04-03 12:47 | Inpatient (IN) | payer MEDICAID ==
[~2022-04-03] VITALS: Ht 170.2 cm; Wt 95.7 kg
[~2022-04-03 12:47] MED LIST changes: -NO HOME MEDS; -OLAN5TAB26 PO; +OLAN5TAB5 PO; -TRAZ-251 PO
[2022-04-03 14:25] LABS: BASOPHILS % (AUTO) 0.5 % (0-1); EOSINOPHILS # (AUTO) 0.2 X10'3 (0-0.9); EOSINOPHILS % (AUTO) 3.4 % (0-6); HEMATOCRIT 43.3 % (42.0-52.0); HEMOGLOBIN 15.2 g/dl (14.0-17.9); LYMPHOCYTES # (AUTO) 2.1 X10'3 (1.1-4.8); LYMPHOCYTES % (AUTO) 29.9 % (21-51); MEAN CORPUSCULAR HEMOGLOBIN 30.8 PG (27.0-31.0); MEAN CORPUSCULAR HGB CONC 35.1 g/dL (33.0-36.5); MEAN CORPUSCULAR VOLUME 87.7 FL (78-98); MONOCYTES # (AUTO) 0.5 X10'3 (0-0.9); MONOCYTES % (AUTO) 7.5 % (2-12); NEUTROPHILS # (AUTO) 4.1 X10'3 (1.8-7.7); NEUTROPHILS % (AUTO) 58.7 % (42-75); PLATELET COUNT 286 X10'3 (140-440); RED BLOOD COUNT 4.93 X10'6 (4.70-6.10)
[2022-04-03 14:33] LABS: ALANINE AMINOTRANSFERASE 49 U/L (12-78); ALBUMIN 4.2 G/DL (3.4-5.0); ALBUMIN/GLOBULIN RATIO 1.2 (1.1-1.5); ALKALINE PHOSPHATASE 97 IU/L (46-116); ANION GAP 10 (8-16); ASPARTATE AMINO TRANSFERASE 17 U/L (10-37); BILIRUBIN,TOTAL 0.3 MG/DL (0.1-1.0); BLOOD UREA NITROGEN 11 MG/DL (7-18); BUN/CREATININE RATIO 12.2 (5.4-32.0); CALCIUM 9.3 MG/DL (8.5-10.1); CHLORIDE 100 MMOL/L (99-107); GLUCOSE 173 MG/DL (70-104); POTASSIUM 3.7 MMOL/L (3.5-5.1); SODIUM 137 MMOL/L (135-145); TOTAL CARBON DIOXIDE 26.6 MMOL/L (24-32); TOTAL PROTEIN 7.6 G/DL (6.4-8.2); eGFR 87 ML/MIN
[2022-04-03 14:42] LABS: ETHANOL < 0.010 GM/DL (0.0-0.010)
[2022-04-03] MEDS ORDERED: DOCU-148 PO (14:59)
[2022-04-03] MEDS ORDERED: CLOZ200T8 PO (14:59)
[2022-04-03] MEDS ORDERED: HYDR-3927 PO (14:59)
[2022-04-03] MEDS ORDERED: OLAN5TAB3 PO (14:59)
[2022-04-03] MEDS ORDERED: SALI45LI PO (14:59)
[2022-04-03] MEDS ORDERED: LORA10TA7 PO (14:59)
[2022-04-03] MEDS ORDERED: TEMA15CA5 PO (14:59)
[2022-04-03] MEDS ORDERED: TEMA15CA PO (14:59)
[2022-04-03] MEDS ORDERED: CHOL20004 PO (14:59)
[2022-04-03] MEDS ORDERED: VITA-288 PO (14:59)
[2022-04-03] MEDS ORDERED: METF-436 PO (14:59)
[2022-04-03] MEDS ORDERED: LORA-269 PO (15:04)
[2022-04-03] MEDS ORDERED: FLUT16SP2 BOTHNARES (15:04)
[2022-04-03] MEDS ORDERED: FENO48TA10 PO (15:04)
[2022-04-03] MEDS ORDERED: FLONASE NAS (15:04)
[2022-04-03 16:16] LABS: BILIRUBIN,DIRECT 0.1 MG/DL (0-0.3)
[2022-04-03 16:42] LABS: CLARITY,URINE CLEAR (Clear); GLUCOSE, URINE 250 mg/dl (Neg); KETONES,URINE NEGATIVE (Neg); LEUKOCYTE ESTERASE ,URINE NEGATIVE (Neg); NITRITES, URINE NEGATIVE (Neg); OCCULT BLOOD,URINE NEGATIVE (Neg); PH,URINE 5.5 (4.8-8.0); PROTEIN,URINE NEGATIVE (Neg); UROBILINOGEN,URINE 0.2 E.U/dL (0.2-1.0)
[2022-04-03 17:01] LABS: COLOR,URINE STRAW (Yellow); UA COLLECTION TYPE CLN CATCH MIDSTREAM; URINE AMPHETAMINE SCREEN NEGATIVE (Neg); URINE BARBITUATE SCREEN NEGATIVE (Neg); URINE BENZODIAZEPINES SCREEN NEGATIVE (Neg); URINE CANNABINOID SCREEN NEGATIVE (Neg); URINE COCAINE SCREEN NEGATIVE (Neg); URINE METHADONE SCREEN NEGATIVE (Neg); URINE OPIATE SCREEN NEGATIVE (Neg); URINE PHENCYCLIDINE SCREEN NEGATIVE (Neg)
--- NOTE | 2022-04-03 17:31 | NUR ---
[facility] packet faxed.
[2022-04-04] MEDS ORDERED: LORazepam 1 MG tablet PO PRN
--- NOTE | 2022-04-04 11:56 | NUR ---
patient in the room, asleep.
--- NOTE | 2022-04-04 16:00 | NUR ---
Pt brought from main ED room 14 and brought back to overflow bed 26. Pt being orientated to environment.
[2022-04-04] MEDS ORDERED: loratadine 10mg tablet PO PRN (17:40)
[2022-04-04] MEDS ORDERED: hydrOXYzine 25 MG tablet PO PRN (17:40)
[2022-04-04] MEDS ORDERED: temazepam 15mg capsule PO PRN (17:40)
[2022-04-04] MEDS ORDERED: temazepam 15mg capsule PO ONE (17:40)
[2022-04-04] MEDS ORDERED: OLANZAPINE 5 MG TABLET PO PRN (17:40)
[2022-04-04] MEDS: fluticasone nasal spray 16GM bottle NS SCH (20:00)
[2022-04-04] MEDS ORDERED: [UNRECOGNIZED DRUG - REMARK] PO SCH (21:00)
[2022-04-04] MEDS: metFORMIN 500mg tablet PO SCH (23:01)
[2022-04-04] MEDS: LORazepam 1 MG tablet PO SCH (23:01)
[2022-04-04] MEDS: clozapine 100mg tablet PO SCH (23:18)
[2022-04-05] MEDS: fluticasone nasal spray 16GM bottle NS SCH ×2 (08:33→20:00)
[2022-04-05] MEDS: LORazepam 1 MG tablet PO SCH ×3 (08:34→20:11)
[2022-04-05] MEDS: docusate sod 100mg capsule PO SCH (08:34)
[2022-04-05] MEDS: metFORMIN 500mg tablet PO SCH ×3 (08:35→20:11)
[2022-04-05] MEDS: cholecalciferol (vitamin D3) 1,000 unit (25mcg) tablet PO SCH (08:35)
[2022-04-05] MEDS: fenofibrate 48mg tablet PO SCH (08:36)
[2022-04-05] MEDS: vitamin E 400 unit capsule PO SCH (08:36)
[2022-04-05] MEDS: clozapine 100mg tablet PO SCH (21:25)
--- NOTE | 2022-04-05 22:13 | NUR ---
Pt arrived on floor 2124. Assessment completed, HS meds given pt asleep at this time.
--- NOTE | 2022-04-06 01:14 | NUR ---
Pt sleeping resp even and unlabored.
--- NOTE | 2022-04-06 03:20 | NUR ---
Pt sleeping resp even and unlabored.
--- NOTE | 2022-04-06 05:22 | NUR ---
Pt sleeping resp even and unlabored.
[2022-04-06] MEDS: cholecalciferol (vitamin D3) 1,000 unit (25mcg) tablet PO SCH (07:51)
[2022-04-06] MEDS: metFORMIN 500mg tablet PO SCH ×3 (07:51→20:53)
[2022-04-06] MEDS: fluticasone nasal spray 16GM bottle NS SCH ×2 (07:51→20:18)
[2022-04-06] MEDS: docusate sod 100mg capsule PO SCH (07:51)
[2022-04-06] MEDS: LORazepam 1 MG tablet PO SCH ×3 (07:51→20:54)
[2022-04-06] MEDS: vitamin E 400 unit capsule PO SCH (07:53)
[2022-04-06] MEDS: fenofibrate 48mg tablet PO SCH (08:07)
--- NOTE | 2022-04-06 14:39 | NUR ---
[facility] CALLED TO REPORT THAT MR. IBRAHIM WAS ACCEPTED INTO [facility].
[2022-04-06] MEDS: clozapine 100mg tablet PO SCH (20:53)
[2022-04-06] MEDS ORDERED: loperamide 2mg capsule PO PRN (22:25)
[2022-04-06] MEDS ORDERED: acetaminophen 325mg tablet PO PRN (22:25)
[2022-04-06] MEDS ORDERED: magnesium hydroxide 30ml (MOM) UD suspension PO PRN (22:25)
[2022-04-06] MEDS ORDERED: mag hydrox/Alum hydrox/simeth 30ml oral suspension PO PRN (22:25)
[2022-04-06] MEDS ORDERED: NICOTINE POLACRILEX 2 MG LOZENGE BC PRN (23:55)
--- NOTE | 2022-04-06 23:59 | NUR ---
Admission Note: 56 year old male, admitted from ER overflow for DTS/GD. He has been residing at [facility] for the past two weeks, which according to the patient has caused increase in his depression. Prior to that he was at an IMD in [place]. Pt reports some thoughts of suicide with plan to break neck from falling off a chair or hanging himself. Pt also believes he has an implant in which he can be controlled with. He was brought to the unit via wheelchair with security and PCT Wily contraband check completed by Wily. Skin check completed by myself and Jocelyn WELLS, skin is clear on admit. Pt is conserved with [facility] and has a diagnosis of Schizoaffective D/O, as well as DMII.
[2022-04-07 00:07] VITALS: BP 124/77
[2022-04-07 08:00] VITALS: BP 119/76
[2022-04-07] MEDS: cholecalciferol (vitamin D3) 1,000 unit (25mcg) tablet PO SCH (08:19)
[2022-04-07] MEDS: metFORMIN 500mg tablet PO SCH ×3 (08:19→20:55)
[2022-04-07] MEDS: LORazepam 1 MG tablet PO SCH ×3 (08:19→20:56)
[2022-04-07] MEDS: docusate sod 100mg capsule PO SCH (08:19)
[2022-04-07] MEDS: fenofibrate 48mg tablet PO SCH (08:19)
[2022-04-07] MEDS: vitamin E 400 unit capsule PO SCH ×2 (08:19→20:56)
[2022-04-07] MEDS: fluticasone nasal spray 16GM bottle NS SCH ×2 (08:22→20:57)
[2022-04-07 09:23] LABS: CHOL/HDL RATIO 7.3 (0.00-4.99); CHOLESTEROL 218 MG/DL (0-200); HDL CHOLESTEROL 30 MG/DL (35-60); LDL CHOLESTEROL 105 MG/DL (50-100); TRIGLYCERIDES 524 MG/DL (20-135)
--- NOTE | 2022-04-07 14:55 | NUR ---
Problem : 56 year old male, admitted from ER overflow for DTS/GD. He has been residing at [facility] for the past two weeks, which according to the patient has caused increase in his depression. Prior to that he was at an IMD in [place]. Pt reports some thoughts of suicide with plan to break neck from falling off a chair or hanging himself. Pt also believes he has an implant in which he can be controlled with. Interventions : 1:1 assessment, therapeutic communication, active listening, medication administration/education/monitoring, ensured contract for safety, provided distraction, redirection, attempted reality orientation, Q15 minute safety checks. Response : Pt was up for breakfast. FS BG AC breakfast was 150. HgbA1c was 6.7. Pt continues on Metformin 500 mg TID. Pt was pacing the hallways after breakfast. Pt appeared lost and he was. Pt stated that he forgot where his room was. Pt was directed to his room. Pt has fixed delusions. Pt was reluctant to talk about them because "it's embarrassing." Pt states that he knows it sounds off the wall. Pt reports that he has implants or transmitters that were placed by law enforcement while he was under the effects of sodium pentothal. Plan : Pt needs stabilization and monitoring in a safe and therapeutic environment until no longer an acute DTS.
[2022-04-07 20:00] VITALS: BP 138/81
[2022-04-07] MEDS: clozapine 100mg tablet PO SCH (20:56)
--- NOTE | 2022-04-08 05:19 | NUR ---
Problem : 56 year old male, admitted from ER overflow for DTS/GD. He has been residing at [facility] for the past two weeks, which according to the patient has caused increase in his depression. Prior to that he was at an IMD in [place]. Pt reports some thoughts of suicide with plan to break neck from falling off a chair or hanging himself. Pt also believes he has an implant in which he can be controlled with. Interventions : 1:1 assessment, therapeutic communication, active listening, medication administration/education/monitoring, ensured contract for safety, provided distraction, redirection, attempted reality orientation, Q15 minute safety checks. Response : Patient is pleasant and cooperative with care; compliant with medication. He endorses SI and AH; expressing delusional thought content. "I have multiple microchips in my head and I hear the Sherifs all the time. It's hard to not be suicidal." When he continued to talk AH he was explaining feeling tormented. Patient participated in HS snack and watched tv in the community room prior to bed; observed sleeping and does not appear to be having difficulty. Plan : Pt needs stabilization and monitoring in a safe and therapeutic environment until no longer an acute DTS.
[2022-04-08 07:25] VITALS: BP 105/65
[2022-04-08] MEDS: cholecalciferol (vitamin D3) 1,000 unit (25mcg) tablet PO SCH (08:01)
[2022-04-08] MEDS: metFORMIN 500mg tablet PO SCH ×3 (08:01→20:15)
[2022-04-08] MEDS: docusate sod 100mg capsule PO SCH (08:01)
[2022-04-08] MEDS: LORazepam 1 MG tablet PO SCH ×3 (08:01→20:15)
[2022-04-08] MEDS: fenofibrate 48mg tablet PO SCH (08:02)
[2022-04-08] MEDS: fluticasone nasal spray 16GM bottle NS SCH ×2 (08:03→20:15)
--- NOTE | 2022-04-08 14:01 | NUR ---
Nursing Progress Note: Problem : 56 year old male, admitted from ER overflow for DTS/GD. He has been residing at [facility] for the past two weeks, which according to the patient has caused increase in his depression. Prior to that he was at an IMD in [place]. Pt reports some thoughts of suicide with plan to break neck from falling off a chair or hanging himself. Pt also believes he has an implant in which he can be controlled with. Interventions : 1:1 assessment, therapeutic communication, active listening, medication administration/education/monitoring, ensured contract for safety, provided distraction, redirection, attempted reality orientation, Q15 minute safety checks. Response : FS BG AC breakfast was 162. Pt was cooperative with medications. Pt rated his depression today at a 4 or 5 out of 10. Pt denied SI. Pt denied hearing voices or noises from the chips in his head. Pt mostly only comes out of his room for meals. His affect is blunted with brief expressions of irritation. He is mostly isolative to self. Plan : Pt needs stabilization and monitoring in a safe and therapeutic environment until no longer an acute DTS.
[2022-04-08 20:00] VITALS: BP 104/74
[2022-04-08] MEDS: clozapine 100mg tablet PO SCH (20:15)
--- NOTE | 2022-04-09 01:56 | NUR ---
Nursing Progress Note: Higginbotham Problem : 56 year old male, admitted from ER overflow for DTS/GD. He has been residing at [facility] for the past two weeks, which according to the patient has caused increase in his depression. Prior to that he was at an IMD in [place]. Pt reports some thoughts of suicide with plan to break neck from falling off a chair or hanging himself. Pt also believes he has an implant in which he can be controlled with. Interventions : 1:1 assessment, therapeutic communication, active listening, medication administration/education/monitoring, ensured contract for safety, provided distraction, redirection, attempted reality orientation, Q15 minute safety checks. Response : Received pt sitting in his room. Cooperative with care. Pt denies depression and anxiety but states there is going to beits going to happen. When asked to elaborate pt states he has an implant and he hears the materials coordinator talking about him and its not good. He believes we will kick him out on the streets and he cant live that way. Re-assured pt that we will not put him in the streets. Pt participated in snacks and was in the community room watching TV with peers for a while. Took all HS medications without issue. Plan : Pt needs stabilization and monitoring in a safe and therapeutic environment until no longer an acute DTS.
[2022-04-09 07:59] VITALS: BP 112/75
[2022-04-09] MEDS: metFORMIN 500mg tablet PO SCH ×3 (08:00→20:15)
[2022-04-09] MEDS: docusate sod 100mg capsule PO SCH (08:00)
[2022-04-09] MEDS: vitamin E 400 unit capsule PO SCH (08:00)
[2022-04-09] MEDS: fenofibrate 48mg tablet PO SCH (08:00)
[2022-04-09] MEDS: LORazepam 1 MG tablet PO SCH ×3 (08:01→20:15)
[2022-04-09] MEDS: cholecalciferol (vitamin D3) 1,000 unit (25mcg) tablet PO SCH (08:01)
[2022-04-09] MEDS: fluticasone nasal spray 16GM bottle NS SCH ×2 (08:01→20:15)
--- NOTE | 2022-04-09 09:36 | NUR ---
Initial: Pt admitted w/ SI and schizophrenia per EMR. Currently on Carb control/Heart Healthy diet w/ mostly 100% intake of meals meeting est needs at this time. LBM 04/05. No nutrition intervention implemented at this time, will continue to monitor. Recs; 1. Continue Carb control/Heart Healthy diet as tolerated 2. Bowel care per rx 3. Weekly wts Addendum: 04/09/22 at [address] Amended: Links added.
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
[2022-04-09 18:28] LABS: BASOPHILS % (AUTO) 0.4 % (0-1); EOSINOPHILS # (AUTO) 0.3 X10'3 (0-0.9); EOSINOPHILS % (AUTO) 4.1 % (0-6); HEMATOCRIT 41.2 % (42.0-52.0); HEMOGLOBIN 14.4 g/dl (14.0-17.9); LYMPHOCYTES # (AUTO) 2.4 X10'3 (1.1-4.8); LYMPHOCYTES % (AUTO) 38.2 % (21-51); MEAN CORPUSCULAR HEMOGLOBIN 31.1 PG (27.0-31.0); MEAN CORPUSCULAR HGB CONC 34.9 g/dL (33.0-36.5); MEAN CORPUSCULAR VOLUME 89.1 FL (78-98); MEAN PLATELET VOLUME 7.3 FL (7.4-10.4); MONOCYTES # (AUTO) 0.4 X10'3 (0-0.9); MONOCYTES % (AUTO) 6.7 % (2-12); NEUTROPHILS # (AUTO) 3.2 X10'3 (1.8-7.7); NEUTROPHILS % (AUTO) 50.6 % (42-75); PLATELET COUNT 247 X10'3 (140-440); RED BLOOD COUNT 4.62 X10'6 (4.70-6.10); RED CELL DISTRIBUTION WIDTH 13.7 % (11.5-14.5); WHITE BLOOD COUNT 6.3 X10'3 (4.5-11.0)
[2022-04-09 19:00] VITALS: BP 133/81
[2022-04-09] MEDS: clozapine 100mg tablet PO SCH (20:15)
--- NOTE | 2022-04-09 23:52 | NUR ---
Nursing Progress Note: Neftaly Problem : 56 year old male, admitted from ER overflow for DTS/GD. He has been residing at [facility] for the past two weeks, which according to the patient has caused increase in his depression. Prior to that he was at an IMD in [place]. Pt reports some thoughts of suicide with plan to break neck from falling off a chair or hanging himself. Pt also believes he has an implant in which he can be controlled with. Interventions : Provided 1:1 assessment with therapeutic communication and active listening, medication administration/education/monitoring, provided reality orientation as needed, monitored Q15 minute safety checks. Response : Pt is compliant and cooperative with medications and care. Pt states his anxiety/depression are mild. Pt states he hears voices but he is able to manage it. Pt appeared to be in a better mood than yesterday. Pt observed in the community room watching TV with peers and participated in snacks. Pt to bed shortly after med pass. Plan : Pt needs stabilization and monitoring in a safe and therapeutic environment until no longer an acute DTS.
[2022-04-10 07:44] VITALS: BP 118/70
[2022-04-10] MEDS: fluticasone nasal spray 16GM bottle NS SCH ×2 (07:53→20:16)
[2022-04-10] MEDS: fenofibrate 48mg tablet PO SCH (07:53)
[2022-04-10] MEDS: metFORMIN 500mg tablet PO SCH ×3 (07:54→20:16)
[2022-04-10] MEDS: LORazepam 1 MG tablet PO SCH ×3 (07:54→20:16)
[2022-04-10] MEDS: cholecalciferol (vitamin D3) 1,000 unit (25mcg) tablet PO SCH (07:54)
[2022-04-10] MEDS: docusate sod 100mg capsule PO SCH (07:54)
[2022-04-10] MEDS: vitamin E 400 unit capsule PO SCH (07:54)
[2022-04-10 08:18] LABS: BASOPHILS % (AUTO) 0.3 % (0-1); EOSINOPHILS # (AUTO) 0.2 X10'3 (0-0.9); EOSINOPHILS % (AUTO) 4.2 % (0-6); HEMATOCRIT 42.4 % (42.0-52.0); HEMOGLOBIN 14.7 g/dl (14.0-17.9); LYMPHOCYTES # (AUTO) 2.1 X10'3 (1.1-4.8); LYMPHOCYTES % (AUTO) 35.7 % (21-51); MEAN CORPUSCULAR HGB CONC 34.8 g/dL (33.0-36.5); MEAN CORPUSCULAR VOLUME 89.3 FL (78-98); MEAN PLATELET VOLUME 6.9 FL (7.4-10.4); MONOCYTES # (AUTO) 0.4 X10'3 (0-0.9); NEUTROPHILS # (AUTO) 3.1 X10'3 (1.8-7.7); NEUTROPHILS % (AUTO) 52.8 % (42-75); PLATELET COUNT 240 X10'3 (140-440); RED BLOOD COUNT 4.75 X10'6 (4.70-6.10); RED CELL DISTRIBUTION WIDTH 14.1 % (11.5-14.5); WHITE BLOOD COUNT 5.8 X10'3 (4.5-11.0)
--- NOTE | 2022-04-10 17:50 | NUR ---
Nursing Progress Note: Problem: 56 year old male, admitted from ER overflow for DTS/GD. He has been residing at [facility] for the past two weeks, which according to the patient has caused increase in his depression. Prior to that he was at an IMD in [place]. Pt reports some thoughts of suicide with plan to break neck from falling off a chair or hanging himself. Pt also believes he has an implant in which he can be controlled with. Interventions: Provided 1:1 assessment with therapeutic communication and active listening, medication administration/education/monitoring, provided reality orientation as needed, monitored Q15 minute safety checks. Response: Patient is resting quietly in bed at the start of the shift. Cooperative with assessment and medications. Patient endorses feelings of depression but denies SI at this time. Speech is clear and linear. Patient has fixed delusions about mind control technology he believes has been put into his head. Appears guarded and does not give details on his delusion. Patient is noted watching TV in the community room in the morning. Isolates to his room much of the day and is noted napping off and on. Plan: Pt needs stabilization and monitoring in a safe and therapeutic environment until no longer an acute DTS.
[2022-04-10 20:00] VITALS: BP 119/76
[2022-04-10] MEDS: clozapine 100mg tablet PO SCH (20:16)
--- NOTE | 2022-04-11 02:05 | NUR ---
Nursing Progress Note: Higginbotham Problem: 56 year old male, admitted from ER overflow for DTS/GD. He has been residing at [facility] for the past two weeks, which according to the patient has caused increase in his depression. Prior to that he was at an IMD in [place]. Pt reports some thoughts of suicide with plan to break neck from falling off a chair or hanging himself. Pt also believes he has an implant in which he can be controlled with. Interventions: Provided 1:1 assessment with therapeutic communication and active listening, medication administration/education/monitoring, provided reality orientation as needed, monitored Q15 minute safety checks. Response: Patient is sleeping in his room at change of shift. Pt up in the community room watching TV with peers at snack time. Pt cooperative with care and medications. Pt appears depressed and states Isabella got some issues going on but I cannot talk about it. Pt took HS meds and went to bed. Plan: Pt needs stabilization and monitoring in a safe and therapeutic environment until no longer an acute DTS.
[2022-04-11] MEDS: metFORMIN 500mg tablet PO SCH ×3 (08:09→21:04)
[2022-04-11] MEDS: vitamin E 400 unit capsule PO SCH (08:09)
[2022-04-11] MEDS: LORazepam 1 MG tablet PO SCH ×3 (08:09→21:03)
[2022-04-11] MEDS: fenofibrate 48mg tablet PO SCH (08:09)
[2022-04-11] MEDS: docusate sod 100mg capsule PO SCH (08:09)
[2022-04-11] MEDS: cholecalciferol (vitamin D3) 1,000 unit (25mcg) tablet PO SCH (08:09)
[2022-04-11] MEDS: fluticasone nasal spray 16GM bottle NS SCH ×2 (08:10→21:03)
[2022-04-11 08:33] VITALS: BP 124/79
[2022-04-11] MEDS ORDERED: clozapine 25mg tablet PO PRN (16:20)
--- NOTE | 2022-04-11 17:47 | NUR ---
Nursing Progress Note: Problem: Admitted from ER overflow for DTS/GD. He has been residing at [facility] [place] for the past two weeks, which according to the patient has caused increase in his depression. Prior to that he was at an IMD in [place]. Pt reports some thoughts of suicide with plan to break his neck from falling off a chair or hanging himself. Pt also believes he has an implant in which he can be controlled with. Interventions: Provided 1:1 assessment with therapeutic communication and active listening, medication administration/education/monitoring, provided reality orientation as needed, monitored Q15 minute safety checks. Response: Pt isolates to his room most of the day. He is cooperative with treatment. Takes his medications as prescribed. He denies SI. He endorses feelings of depression. Speech is clear and linear. Plan: Pt needs stabilization and monitoring in a safe and therapeutic environment until no longer an acute DTS.
[2022-04-11 19:00] VITALS: BP 117/79
[2022-04-11] MEDS: clozapine 100mg tablet PO SCH (21:04)
--- NOTE | 2022-04-11 22:34 | NUR ---
Nursing Progress Note: Problem: Admitted from ER overflow for DTS/GD. He has been residing at [facility] for the past two weeks, which according to the patient has caused increase in his depression. Prior to that he was at an IMD in [place]. Pt reports some thoughts of suicide with plan to break his neck from falling off a chair or hanging himself. Pt also believes he has an implant in which he can be controlled with. Interventions: Provided 1:1 assessment with therapeutic communication and active listening, medication administration/education/monitoring, provided reality orientation as needed, monitored Q15 minute safety checks. Response: Patient is noted in the community room and private room following shift change. 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 Patient believes that the implant is causing the bad voices that make him depressed. Patient is cooperative, he is medication compliant. Patient denies S/I, H/I, or any visual hallucinations at this time. Audible hallucinations persist. Plan: Pt needs stabilization and monitoring in a safe and therapeutic environment until no longer an acute DTS.
[2022-04-12] MEDS: fluticasone nasal spray 16GM bottle NS SCH ×2 (07:58→21:05)
[2022-04-12] MEDS: LORazepam 1 MG tablet PO SCH ×3 (07:58→20:58)
[2022-04-12] MEDS: lisinopril 5mg tablet PO SCH (07:59)
[2022-04-12 08:00] VITALS: BP 100/63
[2022-04-12] MEDS: atorvastatin 20mg tablet PO SCH (08:00)
[2022-04-12] MEDS: metFORMIN 500mg tablet PO SCH ×3 (08:00→21:00)
[2022-04-12] MEDS: vitamin E 400 unit capsule PO SCH (08:00)
[2022-04-12] MEDS: cholecalciferol (vitamin D3) 1,000 unit (25mcg) tablet PO SCH (08:00)
[2022-04-12] MEDS: fenofibrate 145mg tablet PO SCH (08:00)
[2022-04-12] MEDS: docusate sod 100mg capsule PO SCH (08:01)
[2022-04-12] MEDS: aspirin 81mg, enteric-coated 1 TAB TABLET.DR PO SCH (08:02)
--- NOTE | 2022-04-12 17:35 | NUR ---
Nursing Progress Note: Problem: Admitted from ER overflow for DTS/GD. He has been residing at [facility] for the past two weeks, which according to the patient has caused increase in his depression. Prior to that he was at an IMD in [place]. Pt reports some thoughts of suicide with plan to break his neck from falling off a chair or hanging himself. Pt also believes he has an implant in which he can be controlled with. Interventions: Provided 1:1 assessment with therapeutic communication and active listening, medication administration/education/monitoring, provided reality orientation as needed, monitored Q15 minute safety checks. Response: Patient spends most of his day in the group room watching football. He continues to report depression and believes it wont go away until the implant is removed. Patient is medication compliant, and cooperative with care. He denies ALL MH symptoms, except for depression. Patient isolates to himself, even when in the group room. Plan: Pt needs stabilization and monitoring in a safe and therapeutic environment until no longer an acute DTS.
[2022-04-12 19:40] VITALS: BP 95/54
[2022-04-12] MEDS: clozapine 100mg tablet PO SCH (20:58)
[2022-04-12] MEDS: clozapine 25mg tablet PO SCH (20:59)
--- NOTE | 2022-04-13 04:07 | NUR ---
Nursing Progress Note: Problem: Admitted from ER overflow for DTS/GD. He has been residing at [facility] for the past two weeks, which according to the patient has caused increase in his depression. Prior to that he was at an IMD in [place]. Pt reports some thoughts of suicide with plan to break his neck from falling off a chair or hanging himself. Pt also believes he has an implant in which he can be controlled with. Interventions: Provided 1:1 assessment with therapeutic communication and active listening, medication administration/education/monitoring, provided reality orientation as needed, monitored Q15 minute safety checks. Response: Patient is pleasant and cooperative with care; compliant with medication. Nicotine patch removed. He denies SI, HI, A/VH; no mention of micro chips or any other apparent delusions expressed this shift. However, patient was guarded with minimal responses and continues to self isolate. He participated in HS snack and briefly observed watching TV in the community room prior to bed; observed sleeping and does not appear to be having difficulty. Plan: Pt needs stabilization and monitoring in a safe and therapeutic environment until no longer an acute DTS.
[2022-04-13 07:42] VITALS: BP 97/65
[2022-04-13] MEDS: lisinopril 5mg tablet PO SCH (08:00)
[2022-04-13] MEDS: metFORMIN 500mg tablet PO SCH ×3 (08:37→20:17)
[2022-04-13] MEDS: vitamin E 400 unit capsule PO SCH (08:37)
[2022-04-13] MEDS: LORazepam 1 MG tablet PO SCH ×3 (08:37→20:17)
[2022-04-13] MEDS: docusate sod 100mg capsule PO SCH (08:37)
[2022-04-13] MEDS: fenofibrate 145mg tablet PO SCH (08:37)
[2022-04-13] MEDS: aspirin 81mg, enteric-coated 1 TAB TABLET.DR PO SCH (08:37)
[2022-04-13] MEDS: cholecalciferol (vitamin D3) 1,000 unit (25mcg) tablet PO SCH (08:37)
[2022-04-13] MEDS: atorvastatin 20mg tablet PO SCH (08:38)
[2022-04-13] MEDS: fluticasone nasal spray 16GM bottle NS SCH ×2 (08:41→20:18)
--- NOTE | 2022-04-13 17:17 | NUR ---
Nursing Progress Note: Problem: Admitted from ER overflow for DTS/GD. He has been residing at [facility] for the past two weeks, which according to the patient has caused increase in his depression. Prior to that he was at an IMD in [place]. Pt reports some thoughts of suicide with plan to break his neck from falling off a chair or hanging himself. Pt also believes he has an implant in which he can be controlled with. Interventions: Provided Medication Administration & Management; Maintained a Safe & Supportive Environment; Clear & Simple Instructions; Direction & Encouragement Regarding Performance of ADLs; Monitored Behaviors and Maintained Clear Boundaries; Provided Physical Assessment and 1:1 Patient Interview; Therapeutic Conversation & Active Listening; Education & Monitoring. Response: RN received pt. asleep in bed at start of shift. Blood sugar taken and was 149. Pt. ate breakfast and took medications. Pt. isolated to his room during the AM, mostly sleeping. In the afternoon pt. was observed watching TV in the day room. 1:1 done at bedside, pt. reports hearing voices, but not currently. Pt. denies all other psych symptoms. Pt. is guarded and gives minimal responses to RNs questions. Pt. received visit from his [facility] disease case manager rn. Plan: Pt needs stabilization and monitoring in a safe and therapeutic environment until no longer an acute DTS.
[2022-04-13 19:42] VITALS: BP 98/73
[2022-04-13] MEDS: clozapine 100mg tablet PO SCH (20:17)
[2022-04-13] MEDS: clozapine 25mg tablet PO SCH (20:17)
--- NOTE | 2022-04-14 05:09 | NUR ---
Nursing Progress Note: Problem: Admitted from ER overflow for DTS/GD. He has been residing at [facility] for the past two weeks, which according to the patient has caused increase in his depression. Prior to that he was at an IMD in [place]. Pt reports some thoughts of suicide with plan to break his neck from falling off a chair or hanging himself. Pt also believes he has an implant in which he can be controlled with. Interventions: Provided 1:1 assessment with therapeutic communication and active listening, medication administration/education/monitoring, provided reality orientation as needed, monitored Q15 minute safety checks. Response: Patient is pleasant and cooperative with care; compliant with medication. He denies SI, HI, A/VH; continues to appear depressed and guarded. Patient watched football and participated in HS snack prior to bed; observed sleeping and does not appear to be having difficulty. Plan: Pt needs stabilization and monitoring in a safe and therapeutic environment until no longer an acute DTS.
[2022-04-14 07:30] VITALS: BP 93/72
[2022-04-14] MEDS: LORazepam 1 MG tablet PO SCH ×3 (08:12→20:25)
[2022-04-14] MEDS: metFORMIN 500mg tablet PO SCH ×3 (08:12→20:25)
[2022-04-14] MEDS: fenofibrate 145mg tablet PO SCH (08:13)
[2022-04-14] MEDS: atorvastatin 20mg tablet PO SCH (08:13)
[2022-04-14] MEDS: aspirin 81mg, enteric-coated 1 TAB TABLET.DR PO SCH (08:13)
[2022-04-14] MEDS: docusate sod 100mg capsule PO SCH (08:13)
[2022-04-14] MEDS: vitamin E 400 unit capsule PO SCH (08:13)
[2022-04-14] MEDS: cholecalciferol (vitamin D3) 1,000 unit (25mcg) tablet PO SCH (08:13)
[2022-04-14] MEDS: lisinopril 5mg tablet PO SCH (08:13)
[2022-04-14] MEDS: fluticasone nasal spray 16GM bottle NS SCH ×2 (08:28→20:25)
--- NOTE | 2022-04-14 17:15 | NUR ---
Nursing Progress Note: Problem: Admitted from ER overflow for DTS/GD. He has been residing at [facility] for the past two weeks, which according to the patient has caused increase in his depression. Prior to that he was at an IMD in [place]. Pt reports some thoughts of suicide with plan to break his neck from falling off a chair or hanging himself. Pt also believes he has an implant in which he can be controlled with. Interventions: Provided Medication Administration & Management; Maintained a Safe & Supportive Environment; Clear & Simple Instructions; Direction & Encouragement Regarding Performance of ADLs; Monitored Behaviors and Maintained Clear Boundaries; Provided Physical Assessment and 1:1 Patient Interview; Therapeutic Conversation & Active Listening; Education & Monitoring. Response: RN received pt. asleep in bed at start of shift. Blood sugar taken and was 148. Pt. ate breakfast and took medications. Pt. isolated to his room most of the day, either napping or sitting in his chair listening to headphones. 1:1 done at bedside, pt. reports feeling anxious and given Atarax 25mg po with good effect. Pt. denies SI/HI and visual hallucinations but when asked if he is hearing voices, pt. states, not yet. Plan: Pt needs stabilization and monitoring in a safe and therapeutic environment until no longer an acute DTS.
[2022-04-14 19:37] VITALS: BP 116/73
[2022-04-14] MEDS: clozapine 25mg tablet PO SCH (20:25)
[2022-04-14] MEDS: clozapine 100mg tablet PO SCH (20:25)
--- NOTE | 2022-04-15 05:18 | NUR ---
Nursing Progress Note: Problem: Admitted from ER overflow for DTS/GD. He has been residing at [facility] for the past two weeks, which according to the patient has caused increase in his depression. Prior to that he was at an IMD in [place]. Pt reports some thoughts of suicide with plan to break his neck from falling off a chair or hanging himself. Pt also believes he has an implant in which he can be controlled with. Interventions: Provided 1:1 assessment with therapeutic communication and active listening, medication administration/education/monitoring, provided reality orientation as needed, monitored Q15 minute safety checks. Response: Patient is pleasant and cooperative with care; compliant with medication. He denies SI, HI, A/VH; smiling and joking with promotion writer this shift. Patient watched TV and participated in HS snack prior to bed; observed sleeping and does not appear to be having difficulty. Plan: Pt needs stabilization and monitoring in a safe and therapeutic environment until no longer an acute DTS.
[2022-04-15 07:53] VITALS: BP 90/55
[2022-04-15] MEDS: lisinopril 5mg tablet PO SCH (08:00)
[2022-04-15] MEDS: fluticasone nasal spray 16GM bottle NS SCH ×2 (08:00→20:00)
[2022-04-15] MEDS: aspirin 81mg, enteric-coated 1 TAB TABLET.DR PO SCH (08:13)
[2022-04-15] MEDS: cholecalciferol (vitamin D3) 1,000 unit (25mcg) tablet PO SCH (08:13)
[2022-04-15] MEDS: atorvastatin 20mg tablet PO SCH (08:14)
[2022-04-15] MEDS: metFORMIN 500mg tablet PO SCH ×3 (08:15→21:00)
[2022-04-15] MEDS: fenofibrate 145mg tablet PO SCH (08:15)
[2022-04-15] MEDS: vitamin E 400 unit capsule PO SCH (08:15)
[2022-04-15] MEDS: docusate sod 100mg capsule PO SCH (08:15)
[2022-04-15] MEDS: LORazepam 1 MG tablet PO SCH ×3 (08:15→21:00)
--- NOTE | 2022-04-15 17:50 | NUR ---
Nursing Progress Note: Problem: Admitted from ER overflow for DTS/GD. He has been residing at [facility] for the past two weeks, which according to the patient has caused increase in his depression. Prior to that he was at an IMD in [place]. Pt reports some thoughts of suicide with plan to break his neck from falling off a chair or hanging himself. Pt also believes he has an implant in which he can be controlled with. Interventions: Provided Medication Administration & Management; Maintained a Safe & Supportive Environment; Clear & Simple Instructions; Direction & Encouragement Regarding Performance of ADLs; Monitored Behaviors and Maintained Clear Boundaries; Provided Physical Assessment and 1:1 Patient Interview; Therapeutic Conversation & Active Listening; Education & Monitoring. Response: RN received pt. asleep in bed at start of shift. Blood sugar taken and was 150. Pt. ate breakfast and took medications. Pt. socially withdrawn and isolated to his room most of the AM. In the afternoon pt. observed watching TV in the day room. 1:1 done at bedside, pt. denies SI/HI, and visual hallucinations but reports hearing voices, states, the voices say some good things and some bad things. Pt. reports that its his birthday today, when asked how he feels about that, pt. states, Ok, it just has been a hard year. Pt. did not want to further talk to this RN. Plan: Pt needs stabilization and monitoring in a safe and therapeutic environment until no longer an acute DTS.
[2022-04-15 19:00] VITALS: BP 110/70
[2022-04-15] MEDS ORDERED: DOCU-148 PO ×2 (19:59)
[2022-04-15] MEDS ORDERED: ATOR40TA71 PO ×2 (19:59)
[2022-04-15] MEDS ORDERED: ASPI-1071 PO ×2 (19:59)
[2022-04-15] MEDS ORDERED: HYDR50TA65 PO ×2 (19:59)
[2022-04-15] MEDS ORDERED: LISI2.5T14 PO ×2 (19:59)
[2022-04-15] MEDS ORDERED: CLOZ50TA PO ×2 (19:59)
[2022-04-15] MEDS: clozapine 100mg tablet PO SCH (20:59)
[2022-04-15] MEDS: clozapine 25mg tablet PO SCH (20:59)
--- NOTE | 2022-04-16 03:16 | NUR ---
Nursing Progress Note: Problem: Admitted from ER overflow for DTS/GD. He has been residing at [facility] for the past two weeks, which according to the patient has caused increase in his depression. Prior to that he was at an IMD in [place]. Pt reports some thoughts of suicide with plan to break his neck from falling off a chair or hanging himself. Pt also believes he has an implant in which he can be controlled with. Interventions: Provided Medication Administration & Management; Maintained a Safe & Supportive Environment; Clear & Simple Instructions; Direction & Encouragement Regarding Performance of ADLs; Monitored Behaviors and Maintained Clear Boundaries; Provided Physical Assessment and 1:1 Patient Interview; Therapeutic Conversation & Active Listening; Education & Monitoring. Response: Patient received self isolating in room. Patient was later observed sitting in chair in front of rec room staring at people walking by. Patient socialized very little and kept responses short and quiet. Patient sat in chair waiting until nurse brought night medications. Patient took medications without issue and went to bed. Plan: Pt needs stabilization and monitoring in a safe and therapeutic environment until no longer an acute DTS.
[2022-04-16] MEDS: LORazepam 1 MG tablet PO SCH ×3 (07:33→20:18)
[2022-04-16] MEDS: vitamin E 400 unit capsule PO SCH (07:33)
[2022-04-16] MEDS: fenofibrate 145mg tablet PO SCH (07:33)
[2022-04-16] MEDS: fluticasone nasal spray 16GM bottle NS SCH ×2 (07:33→20:00)
[2022-04-16] MEDS: metFORMIN 500mg tablet PO SCH ×3 (07:34→20:19)
[2022-04-16] MEDS: atorvastatin 20mg tablet PO SCH (07:34)
[2022-04-16] MEDS: cholecalciferol (vitamin D3) 1,000 unit (25mcg) tablet PO SCH (07:34)
[2022-04-16] MEDS: docusate sod 100mg capsule PO SCH (07:34)
[2022-04-16] MEDS: aspirin 81mg, enteric-coated 1 TAB TABLET.DR PO SCH (07:35)
[2022-04-16] MEDS: lisinopril 2.5mg tablet PO SCH (07:39)
[2022-04-16 08:00] VITALS: BP 94/65
--- NOTE | 2022-04-16 09:30 | NUR ---
Reassessment: Pt continues eating well, documented with 75-100% PO intake. [facility] 04/15. No nutrition intervention implemented at this time. Will continue to follow. Recommendations: 1. Continue CHO controlled heart healthy diet 2. Routine bowel care 3. Weekly scaled wts Addendum: 04/16/22 at [address] Amended: Links added.
--- NOTE | 2022-04-16 17:18 | NUR ---
Nursing Progress Note Problem: Admitted from ER overflow for DTS/GD. He has been residing at [facility] for the past two weeks, which according to the patient has caused increase in his depression. Prior to that he was at an IMD in [place]. Pt reports some thoughts of suicide with plan to break his neck from falling off a chair or hanging himself. Pt also believes he has an implant in which he can be controlled with. Interventions: Provided Medication Administration & Management; Maintained a Safe & Supportive Environment; Clear & Simple Instructions; Direction & Encouragement Regarding Performance of ADLs; Monitored Behaviors and Maintained Clear Boundaries; Provided Physical Assessment and 1:1 Patient Interview; Therapeutic Conversation & Active Listening; Education & Monitoring. Response: Received Pt in bed sleeping w/o distress at the beginning of this shift. Pt woke and was cooperative with vitals and went to community room to watch TV. Pt ate meals well and engaged in AM assessments. Pt took meds w/o issue today. Pt sat in hallway at times. Pt has active delusions and A/VHs. Pt reports having 12 implants put in me by the ex sheriff detective of [place] can track me and control me with like an equalizer board. He sits all day and controls it. Pt overall cooperative and guarded. He was out on unit, but isolates to self. Pt spoke about wanting to leave so he can smoke his own cigs. He is ok with going back to [place] in [place]. Pt met with Anna Snider Public Guardian today. Plan: Pt needs stabilization and monitoring in a safe and therapeutic environment until no longer an acute DTS.
[2022-04-16 19:53] VITALS: BP 120/81
[2022-04-16] MEDS: clozapine 25mg tablet PO SCH (20:17)
[2022-04-16] MEDS: clozapine 100mg tablet PO SCH (20:18)
--- NOTE | 2022-04-17 04:32 | NUR ---
Nursing Progress Note Problem: Admitted from ER overflow for DTS/GD. He has been residing at [facility] for the past two weeks, which according to the patient has caused increase in his depression. Prior to that he was at an IMD in [place]. Pt reports some thoughts of suicide with plan to break his neck from falling off a chair or hanging himself. Pt also believes he has an implant in which he can be controlled with. Interventions: Provided Medication Administration & Management; Maintained a Safe & Supportive Environment; Clear & Simple Instructions; Direction & Encouragement Regarding Performance of ADLs; Monitored Behaviors and Maintained Clear Boundaries; Provided Physical Assessment and 1:1 Patient Interview; Therapeutic Conversation & Active Listening; Education & Monitoring. Response: Patient was received sitting in community room eating dinner at change of shift. Patient stayed in community room until after snack watching tv and socializing. Patient was was later found sitting in chair in front of rec room people watching until receiving night time medications. Patient returned to community room to finish movie before going to bed. Plan: Pt needs stabilization and monitoring in a safe and therapeutic environment until no longer an acute DTS.
[2022-04-17 07:38] VITALS: BP 120/72
[2022-04-17 07:49] VITALS: BP 120/72
[2022-04-17] MEDS: atorvastatin 20mg tablet PO SCH (08:48)
[2022-04-17] MEDS: fluticasone nasal spray 16GM bottle NS SCH ×2 (08:48→20:00)
[2022-04-17] MEDS: cholecalciferol (vitamin D3) 1,000 unit (25mcg) tablet PO SCH (08:48)
[2022-04-17] MEDS: docusate sod 100mg capsule PO SCH (08:48)
[2022-04-17] MEDS: LORazepam 1 MG tablet PO SCH ×3 (08:48→20:31)
[2022-04-17] MEDS: aspirin 81mg, enteric-coated 1 TAB TABLET.DR PO SCH (08:49)
[2022-04-17] MEDS: fenofibrate 145mg tablet PO SCH (08:49)
[2022-04-17] MEDS: vitamin E 400 unit capsule PO SCH (08:49)
[2022-04-17] MEDS: lisinopril 2.5mg tablet PO SCH (08:49)
[2022-04-17] MEDS: metFORMIN 500mg tablet PO SCH ×3 (08:49→20:32)
--- NOTE | 2022-04-17 14:00 | NUR ---
Nursing Progress Note: Problem : Admitted from ER overflow for DTS/GD. He has been residing at [facility] for the past two weeks, which according to the patient has caused increase in his depression. Prior to that he was at an IMD in [place]. Pt reports some thoughts of suicide with plan to break his neck from falling off a chair or hanging himself. Pt also believes he has an implant in which he can be controlled with. Interventions : Introduced self and established rapport, provided a safe and supportive environment, ensured contract for safety, provided clear and simple instructions, ensured contract for safety, provided active listening and positive encouragement, monitored daily blood glucose, and maintained Q 15min safety checks. Response : Received pt. sleeping in bed at the beginning of the shift, he was awoken to obtained ordered blood glucose check and required education and positive encouragement before somewhat irritably consenting. Pt. then returned back to sleep and was awoken later to attend breakfast in the Group Room. Afterwards, he again retreated back to bed. Pt. presents as cooperative, fatigued, guarded, and is withdrawn from others. He appears somewhat hypervigilant regarding his environment and his affect is constricted. 1:1 was completed later, pt. denies any S/I, but endorsed ongoing A/V/PÉREZ. When this ghost writer attempted to further question pt. regarding these, he again became somewhat irritable and stated, "I hear things on a regular basis!" When questioned regarding any thoughts that others might want to hurt him, pt. stated, "Yes, no, I don't know. It gets worse in the evening." Pt. appears to be reluctant to talk about any MH s/s. Pt. naps intermittently during the shift, and when out of bed remains withdrawn from others. Plan : Per Dr. Ramirez, pt. continues to require a safe and supportive environment while awaiting placement.
[2022-04-17 19:00] VITALS: BP 118/73
[2022-04-17] MEDS: clozapine 100mg tablet PO SCH (20:31)
[2022-04-17] MEDS: clozapine 25mg tablet PO SCH (20:31)
--- NOTE | 2022-04-18 03:33 | NUR ---
Nursing Progress Note: Problem : Admitted from ER overflow for DTS/GD. He has been residing at [facility] for the past two weeks, which according to the patient has caused increase in his depression. Prior to that he was at an IMD in [place]. Pt reports some thoughts of suicide with plan to break his neck from falling off a chair or hanging himself. Pt also believes he has an implant in which he can be controlled with. Interventions : Introduced self and established rapport, provided a safe and supportive environment, ensured contract for safety, provided clear and simple instructions, ensured contract for safety, provided active listening and positive encouragement, monitored daily blood glucose, and maintained Q 15min safety checks. Response : Patient was received sitting in chair in bedroom staring at people passing by. Patient give quite and short answers to questions avoiding eye contact. Patient eventually travels to community room watching tv until snack time. Patient participates in snack, takes night medications and continues to watch tv until eventually going to bed. Plan : Per Dr. Ramirez, pt. continues to require a safe and supportive environment while awaiting placement.
[2022-04-18 08:43] VITALS: BP 101/60
[2022-04-18] MEDS: cholecalciferol (vitamin D3) 1,000 unit (25mcg) tablet PO SCH (08:52)
[2022-04-18] MEDS: docusate sod 100mg capsule PO SCH (08:52)
[2022-04-18] MEDS: aspirin 81mg, enteric-coated 1 TAB TABLET.DR PO SCH (08:52)
[2022-04-18] MEDS: fenofibrate 145mg tablet PO SCH (08:52)
[2022-04-18] MEDS: metFORMIN 500mg tablet PO SCH ×3 (08:52→20:27)
[2022-04-18] MEDS: vitamin E 400 unit capsule PO SCH (08:52)
[2022-04-18] MEDS: lisinopril 2.5mg tablet PO SCH (08:52)
[2022-04-18] MEDS: atorvastatin 20mg tablet PO SCH (08:53)
[2022-04-18] MEDS: LORazepam 1 MG tablet PO SCH ×3 (08:53→20:26)
[2022-04-18] MEDS: fluticasone nasal spray 16GM bottle NS SCH ×2 (08:53→20:26)
--- NOTE | 2022-04-18 16:05 | NUR ---
Nursing Progress Note: Problem : Admitted from ER overflow for DTS/GD. He has been residing at [facility] for the past two weeks, which according to the patient has caused increase in his depression. Prior to that he was at an IMD in [place]. Pt reports some thoughts of suicide with plan to break his neck from falling off a chair or hanging himself. Pt also believes he has an implant in which he can be controlled with. Interventions : Provided a safe and supportive environment, ensured contract for safety, provided clear and simple instructions, ensured contract for safety, provided active listening and positive encouragement, monitored daily blood glucose, and maintained Q 15min safety checks. Response : Received pt. sleeping in bed at the beginning of the shift, he was awoken to attend breakfast in the Group Room and afterwards retreated back to bed as is his routine. Pt. continues to present as fatigued, guarded, and is withdrawn from others. He appears somewhat hypervigilant regarding his environment. Pt. describes his mood as, "Hopeless" regarding his fixed paranoid delusional thoughts which he does not elaborate on. Pt. reports ongoing A/H, but is not observed to be responding to internal stimuli. Pt. naps intermittently during the shift, and when out of bed remains withdrawn from others. Plan : Per ELISSA Burns, pt. continues to require a safe and supportive environment while awaiting placement.
--- NOTE | 2022-04-18 16:18 | NUR ---
Pt's daily glucose check was discontinued by ELISSA Burns.
[2022-04-18 19:00] VITALS: BP 109/74
[2022-04-18] MEDS: clozapine 100mg tablet PO SCH (20:27)
[2022-04-18] MEDS: clozapine 25mg tablet PO SCH (20:27)
--- NOTE | 2022-04-18 22:40 | NUR ---
Nursing Progress Note Problem: Admitted from ER overflow for DTS/GD. He has been residing at [facility] for the past two weeks, which according to the patient has caused increase in his depression. Prior to that he was at an IMD in [place]. Pt reports some thoughts of suicide with plan to break his neck from falling off a chair or hanging himself. Pt also believes he has an implant in which he can be controlled with. Interventions: Provided Medication Administration & Management; Maintained a Safe & Supportive Environment; Clear & Simple Instructions; Direction & Encouragement Regarding Performance of ADLs; Monitored Behaviors and Maintained Clear Boundaries; Provided Physical Assessment and 1:1 Patient Interview; Therapeutic Conversation & Active Listening; Education & Monitoring. Response: Received Pt in community room watching TV after dinner. Pt was cooperative with vitals and participated in snack. Pt took HS meds w/o issue and was talkative during assessments. Pt was pleasant and reported he was going to sleep well after taking meds. Pt continues delusional statements r/t implants and being controlled. Plan: Pt needs stabilization and monitoring in a safe and therapeutic environment until no longer an acute DTS.
[2022-04-19 08:00] VITALS: BP 109/70
[2022-04-19] MEDS: fenofibrate 145mg tablet PO SCH (08:34)
[2022-04-19] MEDS: fluticasone nasal spray 16GM bottle NS SCH ×2 (08:34→20:18)
[2022-04-19] MEDS: atorvastatin 20mg tablet PO SCH (08:35)
[2022-04-19] MEDS: LORazepam 1 MG tablet PO SCH ×3 (08:35→20:19)
[2022-04-19] MEDS: vitamin E 400 unit capsule PO SCH (08:35)
[2022-04-19] MEDS: metFORMIN 500mg tablet PO SCH ×3 (08:35→20:19)
[2022-04-19] MEDS: cholecalciferol (vitamin D3) 1,000 unit (25mcg) tablet PO SCH (08:35)
[2022-04-19] MEDS: aspirin 81mg, enteric-coated 1 TAB TABLET.DR PO SCH (08:35)
[2022-04-19] MEDS: docusate sod 100mg capsule PO SCH (08:35)
[2022-04-19] MEDS: lisinopril 2.5mg tablet PO SCH (08:36)
--- NOTE | 2022-04-19 17:09 | NUR ---
Nursing Progress Note: Problem : Admitted from ER overflow for DTS/GD. He has been residing at [facility] for the past two weeks, which according to the patient has caused increase in his depression. Prior to that he was at an IMD in [place]. Pt reports some thoughts of suicide with plan to break his neck from falling off a chair or hanging himself. Pt also believes he has an implant in which he can be controlled with. Interventions : Provided a safe and supportive environment, ensured contract for safety, provided clear and simple instructions, ensured contract for safety, provided active listening and positive encouragement, monitored daily blood glucose, and maintained Q 15min safety checks. Response : Received pt. sleeping in bed at the beginning of the shift, he was awoken to attend breakfast in the Group Room and afterwards retreated back to bed as is his routine. Pt. continues to present as guarded and withdrawn from others. He attended group, but sat in the back observing and did not participate. Attempted to complete 1:1, however pt. responds minimally to direct questions only and appears very reluctant to participate in reciprocal conversation. He did not make any delusional statements this shift, and was not observed to be responding to internal stimuli. Pt. naps intermittently during the shift, and when out of bed remains withdrawn from others. Plan : Per ELISSA Burns, pt. continues to require a safe and supportive environment while awaiting placement.
[2022-04-19 20:00] VITALS: BP 99/69
[2022-04-19] MEDS: clozapine 25mg tablet PO SCH (20:18)
[2022-04-19] MEDS: clozapine 100mg tablet PO SCH (20:18)
--- NOTE | 2022-04-20 03:15 | NUR ---
Nursing Progress Note: Problem : Admitted from ER overflow for DTS/GD. He has been residing at [facility] for the past two weeks, which according to the patient has caused increase in his depression. Prior to that he was at an IMD in [place]. Pt reports some thoughts of suicide with plan to break his neck from falling off a chair or hanging himself. Pt also believes he has an implant in which he can be controlled with. Interventions : Provided a safe and supportive environment, ensured contract for safety, provided clear and simple instructions, ensured contract for safety, provided active listening and positive encouragement, monitored daily blood glucose, and maintained Q 15min safety checks. Response : Received pt. up in the Group Room at the beginning of the shift talking with a peer. Pt was observed to be reciprocally participating in the conversation. However, he remains guarded in discussing his mental health with this writer producer and again responds minimally to direct questions only. Pt. did not make any delusional statements this shift, and was not observed to be responding to internal stimuli. He retreated to be after snack and appears to be sleeping well. Plan : Per ELISSA Burns, pt. continues to require a safe and supportive environment while awaiting placement.
[2022-04-20] MEDS: lisinopril 2.5mg tablet PO SCH (08:00)
[2022-04-20 08:37] VITALS: BP 98/52
[2022-04-20] MEDS: fluticasone nasal spray 16GM bottle NS SCH ×2 (08:49→20:32)
[2022-04-20] MEDS: LORazepam 1 MG tablet PO SCH ×3 (08:50→20:32)
[2022-04-20] MEDS: metFORMIN 500mg tablet PO SCH ×3 (08:50→20:33)
[2022-04-20] MEDS: docusate sod 100mg capsule PO SCH (08:50)
[2022-04-20] MEDS: cholecalciferol (vitamin D3) 1,000 unit (25mcg) tablet PO SCH (08:50)
[2022-04-20] MEDS: aspirin 81mg, enteric-coated 1 TAB TABLET.DR PO SCH (08:52)
[2022-04-20] MEDS: atorvastatin 20mg tablet PO SCH (08:52)
[2022-04-20] MEDS: fenofibrate 145mg tablet PO SCH (08:52)
[2022-04-20] MEDS: vitamin E 400 unit capsule PO SCH (08:55)
--- NOTE | 2022-04-20 15:20 | NUR ---
THERAPEUTIC GROUP, NOTE Client attended 2 p.m. therapeutic group. Group method: using chosen animal(s) images to create a collage, coloring as a tactical grounding mechanism, using each collage as a talking point as a peer group, introduced peer conversation regarding discussed healthy boundaries and behaviors each animal has (avoiding negative situations, choosing helpful and safe surroundings, and others), and how we use those boundaries and behaviors to stay safe and well. Client engaged for portions of the group.
--- NOTE | 2022-04-20 16:59 | NUR ---
Nursing Progress Note: Problem : Admitted from ER overflow for DTS/GD. He has been residing at [facility] and [facility] for the past two weeks, which according to the patient has caused increase in his depression. Prior to that he was at an IMD in [place]. Pt reports some thoughts of suicide with plan to break his neck from falling off a chair or hanging himself. Pt also believes he has an implant in which he can be controlled with. Interventions : Provided a safe and supportive environment, ensured contract for safety, provided clear and simple instructions, ensured contract for safety, provided active listening and positive encouragement, monitored daily blood glucose, and maintained Q 15min safety checks. Response : Received pt sleeping in bed at shift change. Patient awakes for breakfast and takes his medications as prescribed. Patient then went back to bed until lunchtime, where he ate his lunch and took his medications. Patient then sat in the hallway for some time, looking sedated and internally preoccupied. Patient would not respond to direct questions about himself, and ignored RNs inquiries. Plan : Per ELISSA Burns, pt. continues to require a safe and supportive environment while awaiting placement.
[2022-04-20] MEDS: clozapine 25mg tablet PO SCH (20:32)
[2022-04-20] MEDS: clozapine 100mg tablet PO SCH (20:32)
[2022-04-20 20:41] VITALS: BP 107/68
--- NOTE | 2022-04-20 23:49 | NUR ---
Nursing Progress Note: Problem : Admitted from ER overflow for DTS/GD. He has been residing at [facility] and [facility] for the past two weeks, which according to the patient has caused increase in his depression. Prior to that he was at an IMD in [place]. Pt reports some thoughts of suicide with plan to break his neck from falling off a chair or hanging himself. Pt also believes he has an implant in which he can be controlled with. Interventions : Provided a safe and supportive environment, ensured contract for safety, provided clear and simple instructions, ensured contract for safety, provided active listening and positive encouragement, monitored daily blood glucose, and maintained Q 15min safety checks. Response : Pt was up at change of shift sitting in a chair. Pt requested a shirt out of the clothing closet and was given a shirt. Pt was offered to change rooms but declined. Pt spent evening watching tv and had a snack before going to bed. Pt denies s/i, states he feels better than when he came in. Plan : Per ELISSA Burns, pt. continues to require a safe and supportive environment while awaiting placement.
[2022-04-21 07:00] VITALS: BP 118/77
[2022-04-21] MEDS: aspirin 81mg, enteric-coated 1 TAB TABLET.DR PO SCH (08:10)
[2022-04-21] MEDS: metFORMIN 500mg tablet PO SCH ×3 (08:10→20:39)
[2022-04-21] MEDS: docusate sod 100mg capsule PO SCH (08:10)
[2022-04-21] MEDS: vitamin E 400 unit capsule PO SCH (08:10)
[2022-04-21] MEDS: fenofibrate 145mg tablet PO SCH (08:10)
[2022-04-21] MEDS: atorvastatin 20mg tablet PO SCH (08:10)
[2022-04-21] MEDS: cholecalciferol (vitamin D3) 1,000 unit (25mcg) tablet PO SCH (08:11)
[2022-04-21] MEDS: LORazepam 1 MG tablet PO SCH ×3 (08:13→20:39)
[2022-04-21] MEDS: lisinopril 2.5mg tablet PO SCH (08:13)
[2022-04-21] MEDS: fluticasone nasal spray 16GM bottle NS SCH ×2 (08:13→20:39)
--- NOTE | 2022-04-21 15:46 | NUR ---
Nursing Progress Note: Problem : Admitted from ER overflow for DTS/GD. He has been residing at [facility] for the past two weeks, which according to the patient has caused increase in his depression. Prior to that he was at an IMD in [place]. Pt reports some thoughts of suicide with plan to break his neck from falling off a chair or hanging himself. Pt also believes he has an implant in which he can be controlled with. Interventions : Provided a safe and supportive environment, ensured contract for safety, provided clear and simple instructions, ensured contract for safety, provided active listening and positive encouragement, monitored daily blood glucose, and maintained Q 15min safety checks. Response : Patient sleeping in bed at shift change. Patient is awakened for medication administration, he then goes in to the dining room, but does not communicate with staff or peers. Patient then goes back to bed for the morning. At 11:30, patient is sitting in dining room and he was able to talk. Patient reports that he called his conservator yesterday and they told him that he was going to be transferred to [facility]. Patient states that he would like to go back to [place], where he can go outside. Patient rates his depression at a 6-7/10. Patient complains at how confining it is to be in this environment and makes him feel uncomfortable. Patient states that he is not at the point of committing suicide, but it is always with him. He recounts his family history of how is dad committed suicide and his mother was poisoned. Patient reports that he has auditory hallucinations and that are depressing to him, he states that he knows the voice, but does not want to say at this moment. Patient believes he has an implant that talks to him, and that is the only way that it is possible. Plan : Per ELISSA Burns, pt. continues to require a safe and supportive environment while awaiting placement.
[2022-04-21 19:36] VITALS: BP 112/69
[2022-04-21] MEDS: clozapine 25mg tablet PO SCH (20:39)
[2022-04-21] MEDS: clozapine 100mg tablet PO SCH (20:39)
--- NOTE | 2022-04-21 21:37 | NUR ---
Nursing Progress Note: Problem : Admitted from ER overflow for DTS/GD. He has been residing at [facility] for the past two weeks, which according to the patient has caused increase in his depression. Prior to that he was at an IMD in [place]. Pt reports some thoughts of suicide with plan to break his neck from falling off a chair or hanging himself. Pt also believes he has an implant in which he can be controlled with. Interventions : Provided a safe and supportive environment, ensured contract for safety, provided clear and simple instructions, ensured contract for safety, provided active listening and positive encouragement, monitored daily blood glucose, and maintained Q 15min safety checks. Response : Pt was in the hallway at change of shift. Pt states that he is hearing a voice. "Its a 66 year old man and he wants somebody else to kill me." Pt talks about being frustrated because he doesnt know where he is going. Pt talks about wanting to return to a [facility] care or go back to the place in [facility]. Pt states "It sounds like my public guardian is going to make me go to [facility] and I just want to go to a residential place." Pt denies s/i and reports he is feeling some depression but hes mostly concerned with when he will leave. Pt had snacks, took HS meds and went to sleep. Plan : Per ELISSA Burns, pt. continues to require a safe and supportive environment while awaiting placement.
[2022-04-22 07:32] VITALS: BP 130/80
[2022-04-22] MEDS: fluticasone nasal spray 16GM bottle NS SCH ×2 (08:00→20:17)
[2022-04-22] MEDS: metFORMIN 500mg tablet PO SCH ×3 (08:13→20:17)
[2022-04-22] MEDS: LORazepam 1 MG tablet PO SCH ×3 (08:13→20:17)
[2022-04-22] MEDS: atorvastatin 20mg tablet PO SCH (08:13)
[2022-04-22] MEDS: docusate sod 100mg capsule PO SCH (08:13)
[2022-04-22] MEDS: cholecalciferol (vitamin D3) 1,000 unit (25mcg) tablet PO SCH (08:13)
[2022-04-22] MEDS: vitamin E 400 unit capsule PO SCH (08:13)
[2022-04-22] MEDS: lisinopril 2.5mg tablet PO SCH (08:14)
[2022-04-22] MEDS: aspirin 81mg, enteric-coated 1 TAB TABLET.DR PO SCH (08:14)
[2022-04-22] MEDS: fenofibrate 145mg tablet PO SCH (08:14)
--- NOTE | 2022-04-22 17:39 | NUR ---
Nursing Progress Note: Problem : Admitted from ER overflow for DTS/GD. He has been residing at [facility] and [facility] for the past two weeks, which according to the patient has caused increase in his depression. Prior to that he was at an IMD in [place]. Pt reports some thoughts of suicide with plan to break his neck from falling off a chair or hanging himself. Pt also believes he has an implant in which he can be controlled with. Interventions : Provided a safe and supportive environment, ensured contract for safety, provided clear and simple instructions, ensured contract for safety, provided active listening and positive encouragement, monitored daily blood glucose, and maintained Q 15min safety checks. Response : RN received pt. asleep in bed at start of shift. Pt. awoke for breakfast and took all medications. Pt. observed watching TV in community room. 1:1 done in community room. Pt. denies all psych symptoms, but states, I usually hear the voices later in the day. Pt. is socially withdrawn alternating between watching TV and resting in his room. Plan : Per ELISSA Burns, pt. continues to require a safe and supportive environment while awaiting placement.
[2022-04-22 19:16] VITALS: BP 111/72
[2022-04-22] MEDS: clozapine 100mg tablet PO SCH (20:17)
[2022-04-22] MEDS: clozapine 25mg tablet PO SCH (20:17)
--- NOTE | 2022-04-22 21:50 | NUR ---
Nursing Progress Note: Problem : Admitted from ER overflow for DTS/GD. He has been residing at [facility] for the past two weeks, which according to the patient has caused increase in his depression. Prior to that he was at an IMD in [place]. Pt reports some thoughts of suicide with plan to break his neck from falling off a chair or hanging himself. Pt also believes he has an implant in which he can be controlled with. Interventions : Provided a safe and supportive environment, ensured contract for safety, provided clear and simple instructions, ensured contract for safety, provided active listening and positive encouragement, monitored daily blood glucose, and maintained Q 15min safety checks. Response : Pt was sitting in the group room at change of shift. Pt is pleasant but frustrated with being here. Pt is complaining about not having enough clothing here and states he knows he can get clothing from the public guardian but states "its not really necessary." Pt isolated to himself, guarded during conversation, and reports 8/10 back pain, "from sitting around all day!" Pt was provided with prn tylenol with HS meds. Pt was encouraged to walk in the hallway if sitting is bothering his back and pt states "that's not really my thing." Plan : Per ELISSA Burns, pt. continues to require a safe and supportive environment while awaiting placement.
--- NOTE | 2022-04-23 07:13 | NUR ---
Reassessment: Pt continues eating well, documented with 75-100% PO intake. [facility] 04/22. No nutrition intervention implemented at this time. Will continue to follow. Recommendations: 1. Continue CHO controlled heart healthy diet 2. Routine bowel care 3. Weekly scaled wts Addendum: 04/23/22 at [address] Amended: Links added.
[2022-04-23 07:30] VITALS: BP 100/60
[2022-04-23] MEDS: docusate sod 100mg capsule PO SCH (08:05)
[2022-04-23] MEDS: vitamin E 400 unit capsule PO SCH (08:05)
[2022-04-23] MEDS: LORazepam 1 MG tablet PO SCH ×3 (08:05→20:30)
[2022-04-23] MEDS: atorvastatin 20mg tablet PO SCH (08:05)
[2022-04-23] MEDS: aspirin 81mg, enteric-coated 1 TAB TABLET.DR PO SCH (08:05)
[2022-04-23] MEDS: metFORMIN 500mg tablet PO SCH ×3 (08:05→20:31)
[2022-04-23] MEDS: lisinopril 2.5mg tablet PO SCH (08:06)
[2022-04-23] MEDS: cholecalciferol (vitamin D3) 1,000 unit (25mcg) tablet PO SCH (08:06)
[2022-04-23] MEDS: fenofibrate 145mg tablet PO SCH (08:06)
[2022-04-23] MEDS: fluticasone nasal spray 16GM bottle NS SCH ×2 (08:57→20:30)
--- NOTE | 2022-04-23 17:38 | NUR ---
Nursing Progress Note: Problem : Admitted from ER overflow for DTS/GD. He has been residing at [facility] and [facility] for the past two weeks, which according to the patient has caused increase in his depression. Prior to that he was at an IMD in [place]. Pt reports some thoughts of suicide with plan to break his neck from falling off a chair or hanging himself. Pt also believes he has an implant in which he can be controlled with. Interventions : Provided a safe and supportive environment, ensured contract for safety, provided clear and simple instructions, ensured contract for safety, provided active listening and positive encouragement, monitored daily blood glucose, and maintained Q 15min safety checks. Response : RN received pt. asleep in bed at start of shift. Pt. awoke for breakfast and took all medications. Pt. observed watching TV in community room. 1:1 done in community room. Pt. denies all psych symptoms, but states, Im really tired of getting asked this same question everyday I guess I really need to take care of my kidney stones and polyps on my colon. RN asked pt. if he has ever been diagnosed with these disease, pt. states, I dont know. Pt. socially withdrawn but observed in the community room more in the afternoon. Plan: Pt. requires a safe and supportive environment, medication titration until effective dose, needs to be monitored for crisis stabilization, and a viable plan for food, water & [facility]cf for discharge.
[2022-04-23 20:00] VITALS: BP 107/65
[2022-04-23] MEDS: clozapine 100mg tablet PO SCH (20:30)
[2022-04-23] MEDS: clozapine 25mg tablet PO SCH (21:36)
--- NOTE | 2022-04-24 01:06 | NUR ---
Nursing Progress Note: Problem : Admitted from ER overflow for DTS/GD. He has been residing at [facility] and [facility] for the past two weeks, which according to the patient has caused increase in his depression. Prior to that he was at an IMD in [place]. Pt reports some thoughts of suicide with plan to break his neck from falling off a chair or hanging himself. Pt also believes he has an implant in which he can be controlled with. Interventions : Provided a safe and supportive environment, ensured contract for safety, provided clear and simple instructions, ensured contract for safety, provided active listening and positive encouragement, monitored daily blood glucose, and maintained Q 15min safety checks. Response : Patient is sitting in the community room following shift change. Patient ate his meals and was medication compliant. Patient sits by himself. Patient stares at the television but denies watching it. The patient denies S/I, H/I, or any hallucinations. Patients answers are guarded. He is cooperative. Patients affect is flat. Patients only complaint is depression. Plan: Pt. requires a safe and supportive environment, medication titration until effective dose, needs to be monitored for crisis stabilization, and a viable plan for food, water & [facility] for discharge.
[2022-04-24 07:30] VITALS: BP 109/66
[2022-04-24] MEDS: lisinopril 2.5mg tablet PO SCH (07:57)
[2022-04-24] MEDS: aspirin 81mg, enteric-coated 1 TAB TABLET.DR PO SCH (07:57)
[2022-04-24] MEDS: cholecalciferol (vitamin D3) 1,000 unit (25mcg) tablet PO SCH (07:57)
[2022-04-24] MEDS: atorvastatin 20mg tablet PO SCH (07:57)
[2022-04-24] MEDS: LORazepam 1 MG tablet PO SCH ×3 (07:58→20:45)
[2022-04-24] MEDS: fenofibrate 145mg tablet PO SCH (07:58)
[2022-04-24] MEDS: metFORMIN 500mg tablet PO SCH ×3 (07:58→20:45)
[2022-04-24] MEDS: vitamin E 400 unit capsule PO SCH (07:58)
[2022-04-24] MEDS: docusate sod 100mg capsule PO SCH (07:58)
[2022-04-24] MEDS: fluticasone nasal spray 16GM bottle NS SCH ×2 (08:00→20:46)
--- NOTE | 2022-04-24 17:51 | NUR ---
Nursing Progress Note: Problem : Admitted from ER overflow for DTS/GD. He has been residing at [facility] for the past two weeks, which according to the patient has caused increase in his depression. Prior to that he was at an D in [place]. Pt reports some thoughts of suicide with plan to break his neck from falling off a chair or hanging himself. Pt also believes he has an implant in which he can be controlled with. Interventions : Provided a safe and supportive environment, ensured contract for safety, provided clear and simple instructions, ensured contract for safety, provided active listening and positive encouragement, and maintained Q 15min safety checks. Response : RN received pt. asleep in bed at start of shift. Pt. awoke for breakfast and went back to sleep. Pt. stayed in his room most of the AM. During 1:1, pt. denies all psych symptoms, but states that he hears voices in the afternoon. Pt. gives minimal information during interview and appears annoyed with RNs questions. In the afternoon pt. observed sitting in a chair in the hallway, pt. reports he is concerned about needing more clothes because he has not been able to wash his clothes. Pt. allowed to go into clothes closet and pick out some clothes. Plan: Pt. requires a safe and supportive environment, medication titration until effective dose, needs to be monitored for crisis stabilization, and a viable plan for food, water & skilled nursing for discharge.
--- NOTE | 2022-04-24 18:54 | NUR ---
Nursing Progress Note: Problem : Admitted from ER overflow for DTS/GD. He has been residing at [facility] and [facility] for the past two weeks, which according to the patient has caused increase in his depression. Prior to that he was at an IMD in [place]. Pt reports some thoughts of suicide with plan to break his neck from falling off a chair or hanging himself. Pt also believes he has an implant in which he can be controlled with. Interventions : Provided a safe and supportive environment, ensured contract for safety, provided clear and simple instructions, ensured contract for safety, provided active listening and positive encouragement, and maintained Q 15min safety checks. Response : 1:1 Interview in community room. Patient has finished his dinner. He presents with a flat affect. Patient states he is upset as he is board here. Patient desires new clothing from his [facility]. He does endorse audible hallucinations. "The voices keep repeating themselves over and over." Patient denies visual hallucinations. He denies S/I or H/I. Plan: Pt. requires a safe and supportive environment, medication titration until effective dose, needs to be monitored for crisis stabilization, and a viable plan for food, water & senior care for discharge.
[2022-04-24 19:00] VITALS: BP 104/66
[2022-04-24] MEDS: clozapine 100mg tablet PO SCH (20:44)
[2022-04-24] MEDS: clozapine 25mg tablet PO SCH (20:45)
[2022-04-25] MEDS: vitamin E 400 unit capsule PO SCH (07:34)
[2022-04-25] MEDS: fluticasone nasal spray 16GM bottle NS SCH ×2 (07:34→20:58)
[2022-04-25] MEDS: fenofibrate 145mg tablet PO SCH (07:34)
[2022-04-25] MEDS: aspirin 81mg, enteric-coated 1 TAB TABLET.DR PO SCH (07:34)
[2022-04-25] MEDS: docusate sod 100mg capsule PO SCH (07:34)
[2022-04-25] MEDS: metFORMIN 500mg tablet PO SCH ×3 (07:34→20:57)
[2022-04-25] MEDS: atorvastatin 20mg tablet PO SCH (07:34)
[2022-04-25] MEDS: LORazepam 1 MG tablet PO SCH ×3 (07:35→20:57)
[2022-04-25] MEDS: cholecalciferol (vitamin D3) 1,000 unit (25mcg) tablet PO SCH (07:35)
[2022-04-25] MEDS: lisinopril 2.5mg tablet PO SCH (07:36)
[2022-04-25 08:00] VITALS: BP 96/72
--- NOTE | 2022-04-25 17:56 | NUR ---
Nursing Progress Note: Problem: Admitted from ER overflow for DTS/GD. He has been residing at [facility] and [facility] for the past two weeks, which according to the patient has caused increase in his depression. Prior to that he was at an IMD in [place]. Pt reports some thoughts of suicide with plan to break his neck from falling off a chair or hanging himself. Pt also believes he has an implant in which he can be controlled with. Interventions: Provided a safe and supportive environment, ensured contract for safety, provided clear and simple instructions, ensured contract for safety, provided active listening and positive encouragement, and maintained Q 15min safety checks. Response: Patient received resting quietly in bed. Cooperative with assessment and medications. Appears depressed but denies any SI at this time. Patient is guarded and withdrawn. Isolates to his room for parts of the day but is also noted sitting alone in the hallway and watching TV alone in the community room. Continues to endorse AH although less than before. Plan: Pt. requires a safe and supportive environment, medication titration until effective dose, needs to be monitored for crisis stabilization, and a viable plan for food, water & skilled nursing for discharge.
[2022-04-25 19:56] VITALS: BP 126/80
[2022-04-25] MEDS: clozapine 25mg tablet PO SCH (20:57)
[2022-04-25] MEDS: clozapine 100mg tablet PO SCH (20:57)
--- NOTE | 2022-04-26 04:28 | NUR ---
Nursing Progress Note: Problem: Admitted from ER overflow for DTS/GD. He has been residing at [facility] and [facility] for the past two weeks, which according to the patient has caused increase in his depression. Prior to that he was at an IMD in [place]. Pt reports some thoughts of suicide with plan to break his neck from falling off a chair or hanging himself. Pt also believes he has an implant in which he can be controlled with. Interventions: Provided a safe and supportive environment, ensured contract for safety, provided clear and simple instructions, ensured contract for safety, provided active listening and positive encouragement, and maintained Q 15min safety checks. Response: Patient is pleasant and cooperative with care; compliant with medication. He denies SI, HI, A/VH this shift and no apparent delusions expressed. He was watching TV in the community room and participated in HS snack prior to bed; observed sleeping and does not appear to be having difficulty. Plan: Pt. requires a safe and supportive environment, medication titration until effective dose, needs to be monitored for crisis stabilization, and a viable plan for food, water & jail for discharge.
[2022-04-26] MEDS: fluticasone nasal spray 16GM bottle NS SCH ×2 (07:50→20:26)
[2022-04-26] MEDS: aspirin 81mg, enteric-coated 1 TAB TABLET.DR PO SCH (07:50)
[2022-04-26] MEDS: docusate sod 100mg capsule PO SCH (07:50)
[2022-04-26] MEDS: atorvastatin 20mg tablet PO SCH (07:51)
[2022-04-26] MEDS: fenofibrate 145mg tablet PO SCH (07:51)
[2022-04-26] MEDS: metFORMIN 500mg tablet PO SCH ×3 (07:51→20:26)
[2022-04-26] MEDS: vitamin E 400 unit capsule PO SCH (07:51)
[2022-04-26] MEDS: cholecalciferol (vitamin D3) 1,000 unit (25mcg) tablet PO SCH (07:51)
[2022-04-26] MEDS: LORazepam 1 MG tablet PO SCH ×3 (07:51→20:27)
[2022-04-26] MEDS: lisinopril 2.5mg tablet PO SCH (07:54)
[2022-04-26 08:00] VITALS: BP 111/69
--- NOTE | 2022-04-26 17:27 | NUR ---
Nursing Progress Note: Problem: Admitted from ER overflow for DTS/GD. He has been residing at [facility] and [facility] for the past two weeks, which according to the patient has caused increase in his depression. Prior to that he was at an D in [place]. Pt reports some thoughts of suicide with plan to break his neck from falling off a chair or hanging himself. Pt also believes he has an implant in which he can be controlled with. Interventions: Provided a safe and supportive environment, ensured contract for safety, provided clear and simple instructions, ensured contract for safety, provided active listening and positive encouragement, and maintained Q 15min safety checks. Response: Patient received resting quietly in bed. Joins peers in the community room for meals and interacts appropriately, although very little with staff and peers. Patient appears depressed and guarded. Spends time sitting quietly by himself in the [address] as well as in his room. Patient takes a short nap. Denies any SI/ HI at this time but does endorse feelings of depression. Continues to endorse AH but does not want to talk about what they say. Plan: Pt. requires a safe and supportive environment, medication titration until effective dose, needs to be monitored for crisis stabilization, and a viable plan for food, water & snf for discharge.
[2022-04-26 19:19] VITALS: BP 117/72
[2022-04-26] MEDS: clozapine 100mg tablet PO SCH (20:26)
[2022-04-26] MEDS: clozapine 25mg tablet PO SCH (20:26)
--- NOTE | 2022-04-27 04:48 | NUR ---
Nursing Progress Note: Problem: Admitted from ER overflow for DTS/GD. He has been residing at [facility] and [facility] for the past two weeks, which according to the patient has caused increase in his depression. Prior to that he was at an IMD in [place]. Pt reports some thoughts of suicide with plan to break his neck from falling off a chair or hanging himself. Pt also believes he has an implant in which he can be controlled with. Interventions: Provided a safe and supportive environment, ensured contract for safety, provided clear and simple instructions, ensured contract for safety, provided active listening and positive encouragement, and maintained Q 15min safety checks. Response: Patient is pleasant and cooperative with care; compliant with medication. He denies SI, HI, A/VH; no apparent delusions expressed. Patient reports "just bored." He is self isolative but participated in HS snack and watched TV in the community room prior to bed; observed sleeping and does not appear to be having difficulty. Plan: Pt. requires a safe and supportive environment, medication titration until effective dose, needs to be monitored for crisis stabilization, and a viable plan for food, water & jail for discharge.
[2022-04-27 08:00] VITALS: BP 108/63
[2022-04-27] MEDS: cholecalciferol (vitamin D3) 1,000 unit (25mcg) tablet PO SCH (08:30)
[2022-04-27] MEDS: vitamin E 400 unit capsule PO SCH (08:31)
[2022-04-27] MEDS: lisinopril 2.5mg tablet PO SCH (08:31)
[2022-04-27] MEDS: atorvastatin 20mg tablet PO SCH (08:32)
[2022-04-27] MEDS: fenofibrate 145mg tablet PO SCH (08:32)
[2022-04-27] MEDS: docusate sod 100mg capsule PO SCH (08:32)
[2022-04-27] MEDS: metFORMIN 500mg tablet PO SCH ×3 (08:32→20:26)
[2022-04-27] MEDS: LORazepam 1 MG tablet PO SCH ×3 (08:32→20:26)
[2022-04-27] MEDS: aspirin 81mg, enteric-coated 1 TAB TABLET.DR PO SCH (08:32)
[2022-04-27] MEDS: fluticasone nasal spray 16GM bottle NS SCH ×2 (08:32→20:27)
--- NOTE | 2022-04-27 15:45 | NUR ---
Therapeutic Group, Note Client attended 2 p.m. therapeutic group. Group method: group talk regarding healthy communication based on [place]och[place] method -- no criticism, contempt, defensiveness, stonewalling, but stressing need to keep self and others safe (for example, it's okay not to talk or engage with someone when it's not safe). Acknowledged the uniqueness of this environment, and processing at length may or may not be necessary (chose communication based on setting, culture, need, relationship, etc. Client engaged all of the group.
--- NOTE | 2022-04-27 17:45 | NUR ---
Nursing Progress Note: Problem : Admitted from ER overflow for DTS/GD. He has been residing at [facility] for the past two weeks, which according to the patient has caused increase in his depression. Prior to that he was at an IMD in [place]. Pt reports some thoughts of suicide with plan to break his neck from falling off a chair or hanging himself. Pt also believes he has an implant in which he can be controlled with. Interventions : Provided a safe and supportive environment, ensured contract for safety, provided clear and simple instructions, ensured contract for safety, provided active listening and positive encouragement, monitored daily blood glucose, and maintained Q 15min safety checks. Response : RN received pt. asleep in bed at start of shift. Pt. awoke for breakfast and took all medications. Pt. observed watching TV in community room. 1:1 done in community room. Pt. denies SI/HI, A/VH hallucinations. Pt. reports hes doing good. States, Just watching people check out. Pt. reports that he may go to [facility] in [place]. When asked how he feels about that, pt. states, I dont know, I guess its a good place. Pt. overheard talking with male peer in the hallway, talking about discharge. Plan: Pt. requires a safe and supportive environment, medication titration until effective dose, needs to be monitored for crisis stabilization, and a viable plan for food, water & assisted for discharge.
[2022-04-27 19:31] VITALS: BP 102/69
[2022-04-27] MEDS: clozapine 100mg tablet PO SCH (20:26)
[2022-04-27] MEDS: clozapine 25mg tablet PO SCH (20:26)
--- NOTE | 2022-04-28 03:42 | NUR ---
NURSING PROGRESS NOTE Problem : Per 5150 pt. is here for SA by OD on street drugs after command hallucinations telling him to do so. Pt. states that he took "Fentanyl, black china, meth, 8 ball" in suicide attempt. Interventions : Maintained a safe and supportive environment, provided clear and simple instructions, monitored behavior and provided intervention as needed, provided active listening and positive encouragement, encouraged independent performance of ADLs, and maintained Q 15min safety checks. Response : Patient is pleasant and cooperative with care; compliant with medication. Denies SI, HI, A/VH; no apparent delusions expressed. Patient reports "had a really great day" and smiling; appeared happy. He watched TV and participated in HS snack in the community room prior to bed; observed sleeping and does not appear to be having difficulty. Plan : Patient continues to require a safe and supportive environment, mood continues to improve each day. Conservatorship continues to go forward.
[2022-04-28 08:00] VITALS: BP 147/75
[2022-04-28] MEDS: fluticasone nasal spray 16GM bottle NS SCH ×2 (08:00→20:27)
[2022-04-28] MEDS: metFORMIN 500mg tablet PO SCH ×3 (08:57→20:23)
[2022-04-28] MEDS: atorvastatin 20mg tablet PO SCH (08:57)
[2022-04-28] MEDS: vitamin E 400 unit capsule PO SCH (08:59)
[2022-04-28] MEDS: docusate sod 100mg capsule PO SCH (08:59)
[2022-04-28] MEDS: lisinopril 2.5mg tablet PO SCH (08:59)
[2022-04-28] MEDS: aspirin 81mg, enteric-coated 1 TAB TABLET.DR PO SCH (08:59)
[2022-04-28] MEDS: cholecalciferol (vitamin D3) 1,000 unit (25mcg) tablet PO SCH (08:59)
[2022-04-28] MEDS: fenofibrate 145mg tablet PO SCH (08:59)
[2022-04-28] MEDS: LORazepam 1 MG tablet PO SCH ×3 (08:59→20:27)
--- NOTE | 2022-04-28 17:43 | NUR ---
Nursing Progress Note: Problem : Admitted from ER overflow for DTS/GD. He has been residing at [facility] for the past two weeks, which according to the patient has caused increase in his depression. Prior to that he was at an D in [place]. Pt reports some thoughts of suicide with plan to break his neck from falling off a chair or hanging himself. Pt also believes he has an implant in which he can be controlled with. Interventions : Provided a safe and supportive environment, ensured contract for safety, provided clear and simple instructions, ensured contract for safety, provided active listening and positive encouragement, and maintained Q 15min safety checks. Response : RN received pt. asleep in bed at start of shift. Pt. awoke for breakfast and took all medications. went back to his room after breakfast and slept. Pt. came out of his room in the afternoon. Pt. observed watching TV in community room. 1:1 done in community room. Pt. denies SI/HI, VH, but reports auditory hallucinations. Pt. states, The voices just say the same thing over and over. Pt. did not want to talk about what the voices are saying. Pt. reports he feels ok but gives minimal information. Pt. observe socializing with peers. Plan: Pt. requires a safe and supportive environment, medication titration until effective dose, needs to be monitored for crisis stabilization, and a viable plan for food, water & custodial for discharge.
[2022-04-28 19:27] VITALS: BP 95/60
[2022-04-28] MEDS: clozapine 25mg tablet PO SCH (20:24)
[2022-04-28] MEDS: clozapine 100mg tablet PO SCH (20:27)
--- NOTE | 2022-04-29 05:11 | NUR ---
NURSING PROGRESS NOTE Problem : Per 5150 pt. is here for SA by OD on street drugs after command hallucinations telling him to do so. Pt. states that he took "Fentanyl, black china, meth, 8 ball" in suicide attempt. Interventions : Maintained a safe and supportive environment, provided clear and simple instructions, monitored behavior and provided intervention as needed, provided active listening and positive encouragement, encouraged independent performance of ADLs, and maintained Q 15min safety checks. Response : Patient is pleasant and cooperative with care; compliant with medication. Denies SI, HI, A/VH; no apparent delusions expressed. He is self isolative but watched TV and participated in HS snack in the community room. He is observed sleeping and does not appear to be having difficulty. Plan : Patient continues to require a safe and supportive environment, mood continues to improve each day. Conservatorship continues to go forward.
[2022-04-29 08:00] VITALS: BP 104/61
[2022-04-29] MEDS: docusate sod 100mg capsule PO SCH (08:45)
[2022-04-29] MEDS: cholecalciferol (vitamin D3) 1,000 unit (25mcg) tablet PO SCH (08:46)
[2022-04-29] MEDS: metFORMIN 500mg tablet PO SCH ×3 (08:46→20:46)
[2022-04-29] MEDS: fenofibrate 145mg tablet PO SCH (08:46)
[2022-04-29] MEDS: vitamin E 400 unit capsule PO SCH (08:46)
[2022-04-29] MEDS: LORazepam 1 MG tablet PO SCH ×3 (08:46→20:46)
[2022-04-29] MEDS: atorvastatin 20mg tablet PO SCH (08:46)
[2022-04-29] MEDS: aspirin 81mg, enteric-coated 1 TAB TABLET.DR PO SCH (08:47)
[2022-04-29] MEDS: lisinopril 2.5mg tablet PO SCH (08:47)
[2022-04-29] MEDS: fluticasone nasal spray 16GM bottle NS SCH ×2 (08:47→20:45)
--- NOTE | 2022-04-29 17:41 | NUR ---
Nursing Progress Note: Problem : Admitted from ER overflow for DTS/GD. He has been residing at [facility] for the past two weeks, which according to the patient has caused increase in his depression. Prior to that he was at an IMD in [place]. Pt reports some thoughts of suicide with plan to break his neck from falling off a chair or hanging himself. Pt also believes he has an implant in which he can be controlled with. Interventions : Provided a safe and supportive environment, ensured contract for safety, provided clear and simple instructions, ensured contract for safety, provided active listening and positive encouragement, and maintained Q 15min safety checks. Response : RN received pt. asleep in bed at start of shift. Pt. awoke for breakfast and took all medications. Pt. stayed up after breakfast and observed watching TV in community room. 1:1 done in community room. Pt. denies SI/HI, VH, but reports auditory hallucinations, pt. does not want to discuss what the voices are telling him. Pt. reports he feels, ok. Pt. more awake today but socially withdrawn. Pt. did not attend group today. Plan: Pt. requires a safe and supportive environment, medication titration until effective dose, needs to be monitored for crisis stabilization, and a viable plan for food, water & prison for discharge
[2022-04-29 19:48] VITALS: BP 102/68
[2022-04-29] MEDS: clozapine 25mg tablet PO SCH (20:46)
[2022-04-29] MEDS: clozapine 100mg tablet PO SCH (20:46)
--- NOTE | 2022-04-30 05:08 | NUR ---
NURSING PROGRESS NOTE Problem : Per 5150 pt. is here for SA by OD on street drugs after command hallucinations telling him to do so. Pt. states that he took "Fentanyl, black china, meth, 8 ball" in suicide attempt. Interventions : Maintained a safe and supportive environment, provided clear and simple instructions, monitored behavior and provided intervention as needed, provided active listening and positive encouragement, encouraged independent performance of ADLs, and maintained Q 15min safety checks. Response : Patient is pleasant and cooperative with care; compliant with medication. Patient reported hearing voices d/t his implants. Denies HI and VH. Patient is social with underwriter this shift; he expressed interest in [employer]. Patient participated in HS snack and watched TV in the community room prior to bed; observed sleeping and does not appear to be having difficulty. Plan : Patient continues to require a safe and supportive environment, mood continues to improve each day. Conservatorship continues to go forward.
[2022-04-30 07:49] VITALS: BP 114/62
[2022-04-30] MEDS: fluticasone nasal spray 16GM bottle NS SCH ×2 (07:55→20:43)
[2022-04-30] MEDS: LORazepam 1 MG tablet PO SCH ×3 (07:56→20:43)
[2022-04-30] MEDS: aspirin 81mg, enteric-coated 1 TAB TABLET.DR PO SCH (07:56)
[2022-04-30] MEDS: docusate sod 100mg capsule PO SCH (07:56)
[2022-04-30] MEDS: metFORMIN 500mg tablet PO SCH ×3 (07:56→20:43)
[2022-04-30] MEDS: cholecalciferol (vitamin D3) 1,000 unit (25mcg) tablet PO SCH (07:57)
[2022-04-30] MEDS: atorvastatin 20mg tablet PO SCH (07:57)
[2022-04-30] MEDS: lisinopril 2.5mg tablet PO SCH (07:58)
[2022-04-30] MEDS: fenofibrate 145mg tablet PO SCH (07:58)
[2022-04-30] MEDS: vitamin E 400 unit capsule PO SCH (07:59)
--- NOTE | 2022-04-30 13:43 | NUR ---
Reassessment: Pt continues eating well, documented with 75-100% PO intake. [facility] 04/28. No nutrition intervention implemented at this time. Will continue to follow. Recommendations: 1. Continue CHO controlled heart healthy diet 2. Routine bowel care 3. Weekly scaled wts Addendum: 04/30/22 at [address] Amended: Links added.
--- NOTE | 2022-04-30 17:42 | NUR ---
NURSING PROGRESS NOTE Problem : Per 5150 pt. is here for SA by OD on street drugs after command hallucinations telling him to do so. Pt. states that he took "Fentanyl, black china, meth, 8 ball" in suicide attempt. Interventions : Maintained a safe and supportive environment, provided clear and simple instructions, monitored behavior and provided intervention as needed, provided active listening and positive encouragement, encouraged independent performance of ADLs, and maintained Q 15min safety checks. Response: Patient up for breakfast. Hes pleasant and cooperative, but quiet and needs to be drawn into conversation. Hes compliant with medications, then relaxes in the group room watching TV. Patient has become more sociable and interactive with other patients. No signs of him responding to IS this shift, and he denies all other MH symptoms. Patient believes he may discharge to [facility], and is interested in the place. Patient spent the day watching TV, theres nothing else to do here. Plan : Patient continues to require a safe and supportive environment, mood continues to improve each day. Conservatorship continues to go forward.
[2022-04-30 19:33] VITALS: BP 109/78
[2022-04-30] MEDS: clozapine 100mg tablet PO SCH (20:43)
[2022-04-30] MEDS: clozapine 25mg tablet PO SCH (20:43)
--- NOTE | 2022-05-01 05:26 | NUR ---
NURSING PROGRESS NOTE Problem : Per 5150 pt. is here for SA by OD on street drugs after command hallucinations telling him to do so. Pt. states that he took "Fentanyl, black china, meth, 8 ball" in suicide attempt. Interventions : Maintained a safe and supportive environment, provided clear and simple instructions, monitored behavior and provided intervention as needed, provided active listening and positive encouragement, encouraged independent performance of ADLs, and maintained Q 15min safety checks. Response : Patient is pleasant and cooperative with care; compliant with medication. Denies SI, HI, VH; continues to endorse hearing a voice "that isn't nice" d/t his implant. Patient is mostly self isolative and appears depressed; expressed his boredom. He participated in HS snack prior to bed; observed sleeping and does not appear to be having difficulty. Plan : Patient continues to require a safe and supportive environment, mood continues to improve each day. Conservatorship continues to go forward.
[2022-05-01 08:00] VITALS: BP 100/65
[2022-05-01] MEDS: lisinopril 2.5mg tablet PO SCH (08:00)
[2022-05-01] MEDS: LORazepam 1 MG tablet PO SCH ×3 (08:10→20:20)
[2022-05-01] MEDS: atorvastatin 20mg tablet PO SCH (08:10)
[2022-05-01] MEDS: metFORMIN 500mg tablet PO SCH ×3 (08:10→20:20)
[2022-05-01] MEDS: fenofibrate 145mg tablet PO SCH (08:10)
[2022-05-01] MEDS: aspirin 81mg, enteric-coated 1 TAB TABLET.DR PO SCH (08:10)
[2022-05-01] MEDS: cholecalciferol (vitamin D3) 1,000 unit (25mcg) tablet PO SCH (08:10)
[2022-05-01] MEDS: vitamin E 400 unit capsule PO SCH (08:10)
[2022-05-01] MEDS: docusate sod 100mg capsule PO SCH (08:10)
--- NOTE | 2022-05-01 08:13 | NUR ---
PLACEMENT UPDATE Sent updated notes to [facility] office (04/20/22-04/30/22). Neftaly has an interview via zoom today with [employer] at 11 AM. BROCK Whitaker
[2022-05-01] MEDS: fluticasone nasal spray 16GM bottle NS SCH ×2 (08:14→20:22)
--- NOTE | 2022-05-01 18:59 | NUR ---
Nursing Progress Note: Problem: Admitted from ER overflow for DTS/GD. He has been residing at [facility] for the past two weeks, which according to the patient has caused increase in his depression. Prior to that he was at an IMD in [place]. Pt reports some thoughts of suicide with plan to break his neck from falling off a chair or hanging himself. Pt also believes he has an implant in which he can be controlled with. Interventions: Provided 1:1 assessment with therapeutic communication and active listening, medication administration/education/monitoring, provided reality orientation as needed, monitored Q15 minute safety checks. Response: Patient is up before breakfast, relaxing in his room. He eats well and is compliant with his meds. Patient stays in group room after, then joins [employer] group, which he won a few times. He was seen laughing about his good luck today. Patient continues to deny MH symptoms, and has not been observed responding to IS. No delusional statements have been made. When the TV is not on, he does tend to isolate to himself, but can easily be drawn into conversation or the right games. Plan: Pt needs stabilization and monitoring in a safe and therapeutic environment until no longer an acute DTS.
[2022-05-01 20:00] VITALS: BP 129/71
[2022-05-01] MEDS: clozapine 25mg tablet PO SCH (20:20)
[2022-05-01] MEDS: clozapine 100mg tablet PO SCH (20:20)
[2022-05-02] MEDS: metFORMIN 500mg tablet PO SCH ×3 (07:47→20:35)
[2022-05-02] MEDS: atorvastatin 20mg tablet PO SCH (07:48)
[2022-05-02] MEDS: docusate sod 100mg capsule PO SCH (07:48)
[2022-05-02] MEDS: cholecalciferol (vitamin D3) 1,000 unit (25mcg) tablet PO SCH (07:48)
[2022-05-02] MEDS: vitamin E 400 unit capsule PO SCH (07:48)
[2022-05-02] MEDS: LORazepam 1 MG tablet PO SCH ×3 (07:48→20:35)
[2022-05-02] MEDS: fenofibrate 145mg tablet PO SCH (07:48)
[2022-05-02] MEDS: aspirin 81mg, enteric-coated 1 TAB TABLET.DR PO SCH (07:48)
[2022-05-02] MEDS: lisinopril 2.5mg tablet PO SCH (07:53)
[2022-05-02] MEDS: fluticasone nasal spray 16GM bottle NS SCH ×2 (07:53→20:36)
[2022-05-02 08:00] VITALS: BP 111/67
--- NOTE | 2022-05-02 16:46 | NUR ---
Nursing Progress Note: Problem: Per 5150 pt. is here for SA by OD on street drugs after command hallucinations telling him to do so. Pt. states that he took "Fentanyl, black china, meth, 8 ball" in suicide attempt. Interventions: Maintained a safe and supportive environment, provided clear and simple instructions, monitored behavior and provided intervention as needed, provided active listening and positive encouragement, encouraged independent performance of ADLs, and maintained Q 15min safety checks. Response: Patient received resting quietly in bed. Cooperative with assessment and medications. Continues to endorse AH but states they are less than before. Does not appear to be responding to IS but does appear internally occupied. Patient is verbally withdrawn but he does spend time in common areas and will engage in conversation when approached. Patient denies any SI at this time but does appear depressed. Plan: Patient continues to require a safe and supportive environment, mood continues to improve each day. Conservatorship continues to go forward.
[2022-05-02 19:39] VITALS: BP 110/64
[2022-05-02] MEDS: clozapine 25mg tablet PO SCH (20:35)
[2022-05-02] MEDS: clozapine 100mg tablet PO SCH (20:35)
--- NOTE | 2022-05-03 05:50 | NUR ---
Nursing Progress Note: Problem: Admitted from ER overflow for DTS/GD. He has been residing at [facility] for the past two weeks, which according to the patient has caused increase in his depression. Prior to that he was at an IMD in [place]. Pt reports some thoughts of suicide with plan to break his neck from falling off a chair or hanging himself. Pt also believes he has an implant in which he can be controlled with. Interventions: Provided 1:1 assessment with therapeutic communication and active listening, medication administration/education/monitoring, provided reality orientation as needed, monitored Q15 minute safety checks. Response: Patient is pleasant and cooperative with care; compliant with medication. Denies SI, HI, VH; continues to believe he has an implant that causes him to hear a voice. Patient observed watching TV and participated in HS snack prior to bed; observed sleeping and does not appear to be having difficulty. Plan: Pt needs stabilization and monitoring in a safe and therapeutic environment until no longer an acute DTS.
[2022-05-03 08:00] VITALS: BP 120/76
[2022-05-03] MEDS: fluticasone nasal spray 16GM bottle NS SCH ×2 (08:00→20:35)
[2022-05-03] MEDS: lisinopril 2.5mg tablet PO SCH (08:30)
[2022-05-03] MEDS: aspirin 81mg, enteric-coated 1 TAB TABLET.DR PO SCH (08:31)
[2022-05-03] MEDS: metFORMIN 500mg tablet PO SCH ×3 (08:31→20:35)
[2022-05-03] MEDS: cholecalciferol (vitamin D3) 1,000 unit (25mcg) tablet PO SCH (08:31)
[2022-05-03] MEDS: docusate sod 100mg capsule PO SCH (08:31)
[2022-05-03] MEDS: LORazepam 1 MG tablet PO SCH ×3 (08:31→20:35)
[2022-05-03] MEDS: fenofibrate 145mg tablet PO SCH (08:31)
[2022-05-03] MEDS: atorvastatin 20mg tablet PO SCH (08:31)
[2022-05-03] MEDS: vitamin E 400 unit capsule PO SCH (08:31)
--- NOTE | 2022-05-03 16:50 | NUR ---
Nursing Progress Note: Problem: Admitted from ER overflow for DTS/GD. He has been residing at [facility] and [facility] for the past two weeks, which according to the patient has caused increase in his depression. Prior to that he was at an IMD in [place]. Pt reports some thoughts of suicide with plan to break his neck from falling off a chair or hanging himself. Pt also believes he has an implant in which he can be controlled with. Interventions: Provided 1:1 assessment with therapeutic communication and active listening, medication administration/education/monitoring, provided reality orientation as needed, monitored Q15 minute safety checks. Response: Patient was up for breakfast and morning med pass. He was compliant with medications, then back to bed for a nap. Patient only responds to direct questions, with minimal responses. He was in his room until lunch, then spent the rest of the day watching football games. Patient continues to endorse AH, but denies all other MH symptoms, Its not as bad as before. Patient reports that he doesnt think hell be accepted at [facility], because they asked whether I had any goals. I said when I was young I did, but I told them I cant concentrate on goals as long as I have this implant in my brain, and my ears ring all the time. Plan: Pt needs stabilization and monitoring in a safe and therapeutic environment until no longer an acute DTS.
[2022-05-03 19:52] VITALS: BP 97/64
[2022-05-03] MEDS: clozapine 25mg tablet PO SCH (20:35)
[2022-05-03] MEDS: clozapine 100mg tablet PO SCH (20:35)
--- NOTE | 2022-05-04 05:21 | NUR ---
Nursing Progress Note: Problem: Admitted from ER overflow for DTS/GD. He has been residing at [facility] for the past two weeks, which according to the patient has caused increase in his depression. Prior to that he was at an IMD in [place]. Pt reports some thoughts of suicide with plan to break his neck from falling off a chair or hanging himself. Pt also believes he has an implant in which he can be controlled with. Interventions: Provided 1:1 assessment with therapeutic communication and active listening, medication administration/education/monitoring, provided reality orientation as needed, monitored Q15 minute safety checks. Response: Patient is pleasant and cooperative with care; compliant with medication. No SI, HI, A/VH mentioned this shift. Patient has fixed delusion of having several implants in his head. Patient is self isolative but out on the unit; participated in HS snack and watched TV prior to bed. He is observed sleeping and does not appear to be having difficulty. Plan: Pt needs stabilization and monitoring in a safe and therapeutic environment until no longer an acute DTS.
[2022-05-04 08:00] VITALS: BP 128/79
[2022-05-04] MEDS: lisinopril 2.5mg tablet PO SCH (08:20)
[2022-05-04] MEDS: metFORMIN 500mg tablet PO SCH ×3 (08:20→20:31)
[2022-05-04] MEDS: fenofibrate 145mg tablet PO SCH (08:20)
[2022-05-04] MEDS: LORazepam 1 MG tablet PO SCH ×3 (08:20→20:31)
[2022-05-04] MEDS: cholecalciferol (vitamin D3) 1,000 unit (25mcg) tablet PO SCH (08:20)
[2022-05-04] MEDS: atorvastatin 20mg tablet PO SCH (08:21)
[2022-05-04] MEDS: aspirin 81mg, enteric-coated 1 TAB TABLET.DR PO SCH (08:21)
[2022-05-04] MEDS: vitamin E 400 unit capsule PO SCH (08:21)
[2022-05-04] MEDS: docusate sod 100mg capsule PO SCH (08:21)
[2022-05-04] MEDS: fluticasone nasal spray 16GM bottle NS SCH ×2 (08:36→20:00)
--- NOTE | 2022-05-04 17:52 | NUR ---
Nursing Progress Note: Problem : Admitted from ER overflow for DTS/GD. He has been residing at [facility] for the past two weeks, which according to the patient has caused increase in his depression. Prior to that he was at an IMD in [place]. Pt reports some thoughts of suicide with plan to break his neck from falling off a chair or hanging himself. Pt also believes he has an implant in which he can be controlled with. Interventions : Provided a safe and supportive environment, ensured contract for safety, provided clear and simple instructions, ensured contract for safety, provided active listening and positive encouragement, and maintained Q 15min safety checks. Response : RN received pt. asleep in bed at start of shift. Pt. awoke for breakfast and took all medications. Pt. went back to sleep until mid-morning. Pt. awoke and watching TV in community room. During 1:1 pt. gives minimal information but denies all psych symptoms. Plan: Pt. requires a safe and supportive environment, medication titration until effective dose, needs to be monitored for crisis stabilization, and a viable plan for food, water & usp for discharge
[2022-05-04] MEDS: clozapine 25mg tablet PO SCH (20:31)
[2022-05-04] MEDS: clozapine 100mg tablet PO SCH (20:31)
[2022-05-04 20:42] VITALS: BP 97/63
--- NOTE | 2022-05-04 21:32 | NUR ---
Nursing Progress Note: Problem : Admitted from ER overflow for DTS/GD. He has been residing at [facility] and [facility] for the past two weeks, which according to the patient has caused increase in his depression. Prior to that he was at an IMD in [place]. Pt reports some thoughts of suicide with plan to break his neck from falling off a chair or hanging himself. Pt also believes he has an implant in which he can be controlled with. Interventions : Provided a safe and supportive environment, ensured contract for safety, provided clear and simple instructions, ensured contract for safety, provided active listening and positive encouragement, and maintained Q 15min safety checks. Response : Pt approached nurses station at change of shift, to ask for assistance for another patient. Pt states he is doing "Ok." Pt gives minimal response to questions or non at all. Pt endorses AH but does not ellaborate when asked about them. Pt spent evening in group room watching tv and had snack before going to bed. Plan: Pt. requires a safe and supportive environment, medication titration until effective dose, needs to be monitored for crisis stabilization, and a viable plan for food, water & prison for discharge
[2022-05-05 07:39] VITALS: BP 120/77
[2022-05-05] MEDS: lisinopril 2.5mg tablet PO SCH (08:10)
[2022-05-05] MEDS: vitamin E 400 unit capsule PO SCH (08:10)
[2022-05-05] MEDS: LORazepam 1 MG tablet PO SCH ×3 (08:10→20:25)
[2022-05-05] MEDS: cholecalciferol (vitamin D3) 1,000 unit (25mcg) tablet PO SCH (08:10)
[2022-05-05] MEDS: atorvastatin 20mg tablet PO SCH (08:10)
[2022-05-05] MEDS: docusate sod 100mg capsule PO SCH (08:10)
[2022-05-05] MEDS: fenofibrate 145mg tablet PO SCH (08:10)
[2022-05-05] MEDS: metFORMIN 500mg tablet PO SCH ×3 (08:10→20:25)
[2022-05-05] MEDS: aspirin 81mg, enteric-coated 1 TAB TABLET.DR PO SCH (08:10)
[2022-05-05] MEDS: fluticasone nasal spray 16GM bottle NS SCH ×2 (08:12→20:25)
[2022-05-05] MEDS: acetaminophen 325mg tablet PO PRN ×2 (08:18→13:04)
--- NOTE | 2022-05-05 15:36 | NUR ---
THERAPE[employer]IC GROUP Client attended group. Group focus was resilience and responding to change, specifically psychosocial education about change-related anxiety, and coping mechanisms. Group was a peer discussion, sharing ideas. Peer ideas included smells (essential oils, things that smell like peppermint), talking to someone, walking, hydrating and eating, trying to get good sleep, and avoiding using substances specifically alcohol to try to get some sleep. Client stared straight ahead, appeared either worried or angry as evidenced by facial scowl, tightly crossed arms. While client did not speak or share, client stayed for entirety of group.
--- NOTE | 2022-05-05 17:24 | NUR ---
Nursing Progress Note: Problem : Admitted from ER overflow for DTS/GD. He has been residing at [facility] for the past two weeks, which according to the patient has caused increase in his depression. Prior to that he was at an IMD in [place]. Pt reports some thoughts of suicide with plan to break his neck from falling off a chair or hanging himself. Pt also believes he has an implant in which he can be controlled with. Interventions : Provided a safe and supportive environment, ensured contract for safety, provided clear and simple instructions, ensured contract for safety, provided active listening and positive encouragement, and maintained Q 15min safety checks. Response : RN received pt. asleep in bed at start of shift. Pt. awoke for breakfast and c/o headache. Pt. received Tylenol 650mg po with AM medications and had good effect. Pt. went back to sleep after breakfast. Pt. awoke mid-morning and observed watching TV in community room. During 1:1, pt. reports feeling frustrated with the wait time for placement in an IMD. Pt., states, I feel like Im just in a [place]. Pt. reports hearing some voices at times but does not discuss what they say. Pt. is socially withdrawn. Plan: Pt. requires a safe and supportive environment, medication titration until effective dose, needs to be monitored for crisis stabilization, and a viable plan for food, water & prison for discharge
[2022-05-05 19:22] VITALS: BP 112/65
[2022-05-05] MEDS: clozapine 100mg tablet PO SCH (20:25)
[2022-05-05] MEDS: clozapine 25mg tablet PO SCH (20:29)
--- NOTE | 2022-05-06 04:50 | NUR ---
Nursing Progress Note: Problem: Admitted from ER overflow for DTS/GD. He has been residing at [facility] for the past two weeks, which according to the patient has caused increase in his depression. Prior to that he was at an IMD in [place]. Pt reports some thoughts of suicide with plan to break his neck from falling off a chair or hanging himself. Pt also believes he has an implant in which he can be controlled with. Interventions: Provided 1:1 assessment with therapeutic communication and active listening, medication administration/education/monitoring, provided reality orientation as needed, monitored Q15 minute safety checks. Response: Patient is pleasant and cooperative with care; compliant with medication. Denies SI, HI, A/VH; no apparent delusions expressed this shift. Patient watched TV and participated in HS snack prior to bed; observed sleeping and does not appear to be having difficulty. Plan: Pt needs stabilization and monitoring in a safe and therapeutic environment until no longer an acute DTS.
[2022-05-06 07:33] VITALS: BP 117/77
[2022-05-06] MEDS: atorvastatin 20mg tablet PO SCH (08:09)
[2022-05-06] MEDS: vitamin E 400 unit capsule PO SCH (08:09)
[2022-05-06] MEDS: metFORMIN 500mg tablet PO SCH ×3 (08:10→20:38)
[2022-05-06] MEDS: fenofibrate 145mg tablet PO SCH (08:10)
[2022-05-06] MEDS: cholecalciferol (vitamin D3) 1,000 unit (25mcg) tablet PO SCH (08:10)
[2022-05-06] MEDS: lisinopril 2.5mg tablet PO SCH (08:10)
[2022-05-06] MEDS: aspirin 81mg, enteric-coated 1 TAB TABLET.DR PO SCH (08:10)
[2022-05-06] MEDS: docusate sod 100mg capsule PO SCH (08:10)
[2022-05-06] MEDS: LORazepam 1 MG tablet PO SCH ×3 (08:10→20:38)
[2022-05-06] MEDS: fluticasone nasal spray 16GM bottle NS SCH ×2 (08:12→20:37)
[2022-05-06] MEDS: acetaminophen 325mg tablet PO PRN (11:31)
--- NOTE | 2022-05-06 18:02 | NUR ---
Nursing Progress Note: Problem : Admitted from ER overflow for DTS/GD. He has been residing at [facility] and [facility] for the past two weeks, which according to the patient has caused increase in his depression. Prior to that he was at an IMD in [place]. Pt reports some thoughts of suicide with plan to break his neck from falling off a chair or hanging himself. Pt also believes he has an implant in which he can be controlled with. Interventions : Provided a safe and supportive environment, ensured contract for safety, provided clear and simple instructions, ensured contract for safety, provided active listening and positive encouragement, and maintained Q 15min safety checks. Response : RN received pt. asleep in bed at start of shift. Pt. awoke for breakfast and c/o headache rated 7/10. Pt. received Tylenol 650mg po with good effect. Pt. took AM medications. Pt. went back to sleep after breakfast. Pt. awoke mid-morning and observed watching TV in community room. Pt. refused to eat lunch. Pt. became paranoid, stating, this is not chicken, this is pork. RN attempted to explain to pt. that it was indeed chicken, but pt. states, No I saw that everyone is eating some other meat. Plan: Pt. requires a safe and supportive environment, medication titration until effective dose, needs to be monitored for crisis stabilization, and a viable plan for food, water & [facility] for discharge
[2022-05-06 20:00] VITALS: BP 99/68
[2022-05-06] MEDS: clozapine 100mg tablet PO SCH (20:38)
[2022-05-06] MEDS: clozapine 25mg tablet PO SCH (20:38)
--- NOTE | 2022-05-07 02:43 | NUR ---
Nursing Progress Note: Problem : Admitted from ER overflow for DTS/GD. He has been residing at [facility] for the past two weeks, which according to the patient has caused increase in his depression. Prior to that he was at an IMD in [place]. Pt reports some thoughts of suicide with plan to break his neck from falling off a chair or hanging himself. Pt also believes he has an implant in which he can be controlled with. Interventions : Provided a safe and supportive environment, ensured contract for safety, provided clear and simple instructions, ensured contract for safety, provided active listening and positive encouragement, and maintained Q 15min safety checks. Response : RN received patient awake sitting in front of the nurses station. Pt was friendly and talkative with nurse. Pt voiced he is still feeling depressed, but this is not unusual for me. When asked if he is having thoughts of suicide he stated, yes, no, maybe so patient was smiling at newspaper writer when he said this. 1:1 done at bedside at medications administered with no issues. Pt was calm and cooperative with nurse. Plan: Pt. requires a safe and supportive environment, medication titration until effective dose, needs to be monitored for crisis stabilization, and a viable plan for food, water & senior care for discharge
[2022-05-07] MEDS: lisinopril 2.5mg tablet PO SCH (08:00)
[2022-05-07] MEDS: fluticasone nasal spray 16GM bottle NS SCH ×2 (08:00→20:42)
[2022-05-07] MEDS: aspirin 81mg, enteric-coated 1 TAB TABLET.DR PO SCH (08:01)
[2022-05-07] MEDS: docusate sod 100mg capsule PO SCH (08:01)
[2022-05-07] MEDS: cholecalciferol (vitamin D3) 1,000 unit (25mcg) tablet PO SCH (08:01)
[2022-05-07] MEDS: LORazepam 1 MG tablet PO SCH ×3 (08:01→20:39)
[2022-05-07] MEDS: metFORMIN 500mg tablet PO SCH ×3 (08:01→20:39)
[2022-05-07] MEDS: vitamin E 400 unit capsule PO SCH (08:01)
[2022-05-07] MEDS: fenofibrate 145mg tablet PO SCH (08:01)
[2022-05-07] MEDS: atorvastatin 20mg tablet PO SCH (08:02)
[2022-05-07 08:28] VITALS: BP 97/63
[2022-05-07] MEDS ORDERED: clozapine 25mg tablet PO PRN (09:50)
--- NOTE | 2022-05-07 11:25 | NUR ---
PLACEMENT UPDATE Placement packet is currently at [facility]. Client participated in interview with the program; the LPS placement team is waiting to hear back on the determination from the interview. BROCK Whitaker
--- NOTE | 2022-05-07 13:48 | NUR ---
THERAPEUTIC GROUP Client attended group. Group focus was psychosocial education based, topic was controlling the people who enter your life and boundaries. Client was preoccupied as evidenced by not participating, body language, and staring straight ahead. Client stayed for entirety of group.
--- NOTE | 2022-05-07 18:08 | NUR ---
Nursing Progress Note: Problem: Admitted from ER overflow for DTS/GD. He has been residing at [facility] for the past two weeks, which according to the patient has caused increase in his depression. Prior to that he was at an IMD in [place]. Pt reports some thoughts of suicide with plan to break his neck from falling off a chair or hanging himself. Pt also believes he has an implant in which he can be controlled with. Interventions: Provided a safe and supportive environment, ensured contract for safety, provided clear and simple instructions, ensured contract for safety, provided active listening and positive encouragement, and maintained Q 15min safety checks. Response: Patient received resting quietly in bed. Cooperative with assessment and medications. Eats meals in the community room and interacts appropriately, although very little, with peers. Spends time in common areas but appears withdrawn. Patient noted taking a short nap in the early afternoon. Denies any SI at this time but continues to endorse feelings of depression. He is unable to formulate a plan for food clothing and intermediate at this time. Plan: Pt. requires a safe and supportive environment, medication titration until effective dose, needs to be monitored for crisis stabilization, and a viable plan for food, water & intermediate for discharge
[2022-05-07 19:58] VITALS: BP 118/78
[2022-05-07] MEDS: clozapine 100mg tablet PO SCH (20:39)
[2022-05-07] MEDS: clozapine 25mg tablet PO SCH (20:54)
--- NOTE | 2022-05-08 02:55 | NUR ---
Nursing Progress Note: Problem: Admitted from ER overflow for DTS/GD. He has been residing at [facility] for the past two weeks, which according to the patient has caused increase in his depression. Prior to that he was at an IMD in [place]. Pt reports some thoughts of suicide with plan to break his neck from falling off a chair or hanging himself. Pt also believes he has an implant in which he can be controlled with. Interventions: Provided a safe and supportive environment, ensured contract for safety, provided clear and simple instructions, ensured contract for safety, provided active listening and positive encouragement, and maintained Q 15min safety checks. Response: Patient was received sitting in community room at change of shift. Patient continues to sit quietly in community room watching tv and other patients. Patient participated in snack and then moved to chair in front of room waiting until nurse brought in night medications. As soon as patient took night medications he retuned to bed. Plan: Pt. requires a safe and supportive environment, medication titration until effective dose, needs to be monitored for crisis stabilization, and a viable plan for food, water & snf for discharge
[2022-05-08] MEDS: LORazepam 1 MG tablet PO SCH ×3 (08:26→20:43)
[2022-05-08] MEDS: lisinopril 2.5mg tablet PO SCH (08:26)
[2022-05-08] MEDS: vitamin E 400 unit capsule PO SCH (08:26)
[2022-05-08] MEDS: aspirin 81mg, enteric-coated 1 TAB TABLET.DR PO SCH (08:26)
[2022-05-08] MEDS: metFORMIN 500mg tablet PO SCH ×3 (08:27→20:43)
[2022-05-08] MEDS: atorvastatin 20mg tablet PO SCH (08:27)
[2022-05-08] MEDS: cholecalciferol (vitamin D3) 1,000 unit (25mcg) tablet PO SCH (08:27)
[2022-05-08] MEDS: fenofibrate 145mg tablet PO SCH (08:27)
[2022-05-08] MEDS: docusate sod 100mg capsule PO SCH (08:27)
[2022-05-08] MEDS: fluticasone nasal spray 16GM bottle NS SCH ×2 (08:30→20:58)
[2022-05-08 08:54] VITALS: BP 107/71
[2022-05-08 09:15] LABS: BASOPHILS % (AUTO) 0.5 % (0-1); EOSINOPHILS # (AUTO) 0.3 X10'3 (0-0.9); EOSINOPHILS % (AUTO) 3.3 % (0-6); HEMATOCRIT 40.8 % (42.0-52.0); HEMOGLOBIN 13.9 g/dl (14.0-17.9); LYMPHOCYTES % (AUTO) 25.2 % (21-51); MEAN CORPUSCULAR HEMOGLOBIN 29.8 PG (27.0-31.0); MEAN CORPUSCULAR VOLUME 87.7 FL (78-98); MEAN PLATELET VOLUME 7.2 FL (7.4-10.4); MONOCYTES # (AUTO) 0.4 X10'3 (0-0.9); MONOCYTES % (AUTO) 5.2 % (2-12); NEUTROPHILS # (AUTO) 5.2 X10'3 (1.8-7.7); NEUTROPHILS % (AUTO) 65.8 % (42-75); PLATELET COUNT 272 X10'3 (140-440); RED BLOOD COUNT 4.65 X10'6 (4.70-6.10); RED CELL DISTRIBUTION WIDTH 13.3 % (11.5-14.5); WHITE BLOOD COUNT 7.9 X10'3 (4.5-11.0)
--- NOTE | 2022-05-08 12:37 | NUR ---
PLACEMENT UPDATE Sent updated notes to [facility] office for placement (05/01/22-05/07/22). BROCK Whitaker
--- NOTE | 2022-05-08 16:15 | NUR ---
Nursing Progress Note: Problem: Admitted from ER overflow for DTS/GD. He has been residing at [facility] for the past two weeks, which according to the patient has caused increase in his depression. Prior to that he was at an IMD in [place]. Pt reports some thoughts of suicide with plan to break his neck from falling off a chair or hanging himself. Pt also believes he has an implant in which he can be controlled with. Interventions: Provided a safe and supportive environment, ensured contract for safety, provided clear and simple instructions, ensured contract for safety, provided active listening and positive encouragement, and maintained Q 15min safety checks. Response: Patient received resting quietly in bed, patient awoken to attend breakfast and then returned back to bed. 1:1 done at bedside and medications administered at this time with no issues. Patient stated he slept pretty good and is feeling alright but continues to feel down sometimes. Denies SI/HI. He endorses AH but denies them at this time stating, I usually hear them later in the day. Pt was calm and cooperative with nurse but appears guarded and withdrawn. Patient napped throughout the day, did not attend group but did attend meals. Pt seen sitting in the hallway throughout the shift. Plan: Pt. requires a safe and supportive environment, medication titration until effective dose, needs to be monitored for crisis stabilization, and a viable plan for food, water & mcc for discharge
[2022-05-08 19:46] VITALS: BP 107/67
[2022-05-08] MEDS: clozapine 25mg tablet PO SCH (20:43)
[2022-05-08] MEDS: clozapine 100mg tablet PO SCH (20:43)
--- NOTE | 2022-05-09 03:58 | NUR ---
Nursing Progress Note: Problem: Admitted from ER overflow for DTS/GD. He has been residing at [facility] for the past two weeks, which according to the patient has caused increase in his depression. Prior to that he was at an IMD in [place]. Pt reports some thoughts of suicide with plan to break his neck from falling off a chair or hanging himself. Pt also believes he has an implant in which he can be controlled with. Interventions: Provided a safe and supportive environment, ensured contract for safety, provided clear and simple instructions, ensured contract for safety, provided active listening and positive encouragement, and maintained Q 15min safety checks. Response: Patient was found sitting on edge of bed starring off into the distance at shift change. Patient eventually made his way to community room to watch tv in the corner. Patient continues to have minimal conversations with other patients. Patient moved to chair in front of rec room until being given night medications. Patient took night meds without issue and returned to bed. Plan: Pt. requires a safe and supportive environment, medication titration until effective dose, needs to be monitored for crisis stabilization, and a viable plan for food, water & skilled nursing for discharge
[2022-05-09] MEDS: aspirin 81mg, enteric-coated 1 TAB TABLET.DR PO SCH (07:33)
[2022-05-09] MEDS: cholecalciferol (vitamin D3) 1,000 unit (25mcg) tablet PO SCH (07:33)
[2022-05-09] MEDS: fluticasone nasal spray 16GM bottle NS SCH ×2 (07:33→20:04)
[2022-05-09] MEDS: LORazepam 1 MG tablet PO SCH ×3 (07:33→20:04)
[2022-05-09] MEDS: atorvastatin 20mg tablet PO SCH (07:33)
[2022-05-09] MEDS: metFORMIN 500mg tablet PO SCH ×3 (07:33→20:04)
[2022-05-09] MEDS: fenofibrate 145mg tablet PO SCH (07:33)
[2022-05-09] MEDS: vitamin E 400 unit capsule PO SCH (07:33)
[2022-05-09] MEDS: docusate sod 100mg capsule PO SCH (07:34)
[2022-05-09] MEDS: lisinopril 2.5mg tablet PO SCH (07:34)
--- NOTE | 2022-05-09 07:46 | NUR ---
F/u 05/09: Pt PO ~100% avg meals meeting estimated needs. LBM 05/07. No nutrition intervention at this time. Will continue to monitor. Recommendations: 1. Continue CHO controlled/heart healthy diet 2. Routine bowel care 3. Weekly scaled wts Addendum: 05/09/22 at [address] Amended: Links added.
[2022-05-09 08:00] VITALS: BP 107/62
--- NOTE | 2022-05-09 16:16 | NUR ---
Nursing Progress Note: Problem: Admitted from ER overflow for DTS/GD. He has been residing at [facility] for the past two weeks, which according to the patient has caused increase in his depression. Prior to that he was at an D in [place]. Pt reports some thoughts of suicide with plan to break his neck from falling off a chair or hanging himself. Pt also believes he has an implant in which he can be controlled with. Interventions: Provided a safe and supportive environment, ensured contract for safety, provided clear and simple instructions, ensured contract for safety, provided active listening and positive encouragement, and maintained Q 15min safety checks. Response: Patient received resting quietly in bed. Cooperative with assessment and medication. Patient denies any SI/ HI. Endorses +AH which are less intrusive than on admission. Appears withdrawn and guarded. Patient spends time in common areas and interacts appropriately with staff and peers. Also noted napping in the afternoon. Continues to be unable to formulate a viable plan for food clothing and intermediate. Plan: Pt. requires a safe and supportive environment, medication titration until effective dose, needs to be monitored for crisis stabilization, and a viable plan for food, water & intermediate for discharge
[2022-05-09 20:00] VITALS: BP 102/62
[2022-05-09] MEDS: clozapine 25mg tablet PO SCH (20:04)
[2022-05-09] MEDS: clozapine 100mg tablet PO SCH (20:04)
--- NOTE | 2022-05-10 05:57 | NUR ---
Nursing Progress Note: Problem: Admitted from ER overflow for DTS/GD. He has been residing at [facility] for the past two weeks, which according to the patient has caused increase in his depression. Prior to that he was at an IMD in [place]. Pt reports some thoughts of suicide with plan to break his neck from falling off a chair or hanging himself. Pt also believes he has an implant in which he can be controlled with. Interventions: Provided a safe and supportive environment, ensured contract for safety, provided clear and simple instructions, ensured contract for safety, provided active listening and positive encouragement, and maintained Q 15min safety checks. Response: Patient received sitting quietly in the hallway. Speech is clear but quiet and scant. He answers yes no questions but does not engage in conversation. Denies any SI/ HI. Endorses feelings of depression that come and go. Patient also endorses AH but does not elaborate on what they say and states they are less than before. Cooperative with 1:1 assessment and medications. Patient participates in snack then goes to bed. Plan: Pt. requires a safe and supportive environment, medication titration until effective dose, needs to be monitored for crisis stabilization, and a viable plan for food, water & halfway for discharge
[2022-05-10] MEDS: LORazepam 1 MG tablet PO SCH ×3 (07:56→20:29)
[2022-05-10] MEDS: cholecalciferol (vitamin D3) 1,000 unit (25mcg) tablet PO SCH (07:57)
[2022-05-10] MEDS: atorvastatin 20mg tablet PO SCH (07:57)
[2022-05-10] MEDS: metFORMIN 500mg tablet PO SCH ×3 (07:57→20:29)
[2022-05-10] MEDS: docusate sod 100mg capsule PO SCH (07:57)
[2022-05-10] MEDS: aspirin 81mg, enteric-coated 1 TAB TABLET.DR PO SCH (07:57)
[2022-05-10] MEDS: fenofibrate 145mg tablet PO SCH (07:57)
[2022-05-10] MEDS: vitamin E 400 unit capsule PO SCH (07:57)
[2022-05-10 08:00] VITALS: BP 116/70
[2022-05-10] MEDS: lisinopril 2.5mg tablet PO SCH (08:07)
[2022-05-10] MEDS: fluticasone nasal spray 16GM bottle NS SCH ×2 (08:08→20:33)
--- NOTE | 2022-05-10 15:02 | NUR ---
Nursing Progress Note Problem: Admitted from ER overflow for DTS/GD. He has been residing at [facility] for the past two weeks, which according to the patient has caused increase in his depression. Prior to that he was at an IMD in [place]. Pt reports some thoughts of suicide with plan to break his neck from falling off a chair or hanging himself. Pt also believes he has an implant in which he can be controlled with. Interventions: Provided a safe and supportive environment, ensured contract for safety, provided clear and simple instructions, ensured contract for safety, provided active listening and positive encouragement, and maintained Q 15min safety checks. Response: Received Pt in bed resting w/o distress. Pt woke and was cooperative with vitals and remained awake. He was up to community room and ate breakfast well and took AM meds w/o issue. Pt became irritated due to roommate taking his socks. Issue was resolved and Pt calmed. Pt remains psychotic, reporting AHs and related delusions about being controlled. Pt denies SI/HI. Pt reserved and guarded. He napped in AM and was seen in [facility] watching unit activities. Pt awaiting LPS placement facility. Plan: Pt. requires a safe and supportive environment, medication titration until effective dose, needs to be monitored for crisis stabilization, and a viable plan for food, water & alf for discharge
[2022-05-10 20:01] VITALS: BP 105/67
[2022-05-10] MEDS: clozapine 100mg tablet PO SCH (20:29)
[2022-05-10] MEDS: clozapine 25mg tablet PO SCH (20:30)
--- NOTE | 2022-05-11 03:37 | NUR ---
Nursing Progress Note: Problem: Admitted from ER overflow for DTS/GD. He has been residing at [facility] for the past two weeks, which according to the patient has caused increase in his depression. Prior to that he was at an IMD in [place]. Pt reports some thoughts of suicide with plan to break his neck from falling off a chair or hanging himself. Pt also believes he has an implant in which he can be controlled with. Interventions: Provided a safe and supportive environment, ensured contract for safety, provided clear and simple instructions, ensured contract for safety, provided active listening and positive encouragement, and maintained Q 15min safety checks. Response: Received Pt sitting in a chair in the hallway, watching unit activity and talking with a staff and another Pt. He spoke of frustrations r/t not having a place to live and described how he got evicted from apartments in the past. Pt cooperative with vitals and went to his room for a while. Pt had a snack and took HS meds and sat up in chair for a while before going to sleep. Pt remains sleeping w/o distress at this time. Plan: Pt. requires a safe and supportive environment, medication titration until effective dose, needs to be monitored for crisis stabilization, and a viable plan for food, water & nursing home for discharge
[2022-05-11 08:00] VITALS: BP 102/56
[2022-05-11] MEDS: aspirin 81mg, enteric-coated 1 TAB TABLET.DR PO SCH (08:07)
[2022-05-11] MEDS: LORazepam 1 MG tablet PO SCH ×3 (08:07→20:25)
[2022-05-11] MEDS: atorvastatin 20mg tablet PO SCH (08:07)
[2022-05-11] MEDS: lisinopril 2.5mg tablet PO SCH (08:08)
[2022-05-11] MEDS: metFORMIN 500mg tablet PO SCH ×3 (08:08→20:25)
[2022-05-11] MEDS: cholecalciferol (vitamin D3) 1,000 unit (25mcg) tablet PO SCH (08:08)
[2022-05-11] MEDS: fenofibrate 145mg tablet PO SCH (08:08)
[2022-05-11] MEDS: docusate sod 100mg capsule PO SCH (08:08)
[2022-05-11] MEDS: vitamin E 400 unit capsule PO SCH (08:08)
[2022-05-11] MEDS: fluticasone nasal spray 16GM bottle NS SCH ×2 (08:11→20:25)
--- NOTE | 2022-05-11 15:46 | NUR ---
Client attended therapeutic group about wisdom, coping skills. Exercise was writing or verbalizing wisdom to a imaginary young person. Intervention was peer interaction, verbalizing feelings, and identifying strengths (resilience). Client participated in group, stating if a thought bothers him, he distracts himself or changes the subject: "I just let it go. I have to." Of note is client has been fairly quiet with this automobile service writer, and client was verbal about his frustration of waiting for an IMD placement. Client applied intervention by making these statements appropriately and clearly.
--- NOTE | 2022-05-11 16:49 | NUR ---
Nursing Progress Note Problem: Admitted from ER overflow for DTS/GD. He has been residing at [facility] for the past two weeks, which according to the patient has caused increase in his depression. Prior to that he was at an IMD in [place]. Pt reports some thoughts of suicide with plan to break his neck from falling off a chair or hanging himself. Pt also believes he has an implant in which he can be controlled with. Interventions: Provided a safe and supportive environment, ensured contract for safety, provided clear and simple instructions, ensured contract for safety, provided active listening and positive encouragement, and maintained Q 15min safety checks. Response: RN received pt. asleep in bed at start of shift. Pt. awoke and ate breakfast in community room. Pt. took all medications and went back to his room to sleep more. Pt. awoke mid-morning and observed watching TV in community. 1:1 assessment done in community room. Pt. continues to report hearing voices that tell him negative things. Pt. gives minimal information during interview. Pt. is socially withdrawn. Plan: Pt. requires a safe and supportive environment, medication titration until effective dose, needs to be monitored for crisis stabilization, and a viable plan for food, water & custodial for discharge
[2022-05-11 19:33] VITALS: BP 97/61
[2022-05-11] MEDS: clozapine 25mg tablet PO SCH (20:25)
[2022-05-11] MEDS: clozapine 100mg tablet PO SCH (20:25)
--- NOTE | 2022-05-11 22:07 | NUR ---
Nursing Progress Note Problem: Admitted from ER overflow for DTS/GD. He has been residing at [facility] for the past two weeks, which according to the patient has caused increase in his depression. Prior to that he was at an IMD in [place]. Pt reports some thoughts of suicide with plan to break his neck from falling off a chair or hanging himself. Pt also believes he has an implant in which he can be controlled with. Interventions: Provided a safe and supportive environment, ensured contract for safety, provided clear and simple instructions, ensured contract for safety, provided active listening and positive encouragement, and maintained Q 15min safety checks. Response: Pt was in the group room at change of shift watching tv. Pt is watching a show on the history channel about aliens and says he believes humans descended from aliens. Pt is in a pleasant mood tonight, does not appear to be RIS and has reports no needs at this time. Pt jokes when taking his HS meds "are these going to make me younger?" Pt laughs. Pt reports he is just waiting to be placed somewhere and reports he is feeling good tonight Plan: Pt. requires a safe and supportive environment, medication titration until effective dose, needs to be monitored for crisis stabilization, and a viable plan for food, water & prison for discharge
[2022-05-12 07:53] VITALS: BP 84/53
[2022-05-12] MEDS: lisinopril 2.5mg tablet PO SCH (08:00)
[2022-05-12] MEDS: LORazepam 1 MG tablet PO SCH ×3 (08:16→20:42)
[2022-05-12] MEDS: atorvastatin 20mg tablet PO SCH (08:16)
[2022-05-12] MEDS: fenofibrate 145mg tablet PO SCH (08:16)
[2022-05-12] MEDS: aspirin 81mg, enteric-coated 1 TAB TABLET.DR PO SCH (08:16)
[2022-05-12] MEDS: vitamin E 400 unit capsule PO SCH (08:16)
[2022-05-12] MEDS: metFORMIN 500mg tablet PO SCH ×3 (08:17→20:42)
[2022-05-12] MEDS: cholecalciferol (vitamin D3) 1,000 unit (25mcg) tablet PO SCH (08:17)
[2022-05-12] MEDS: docusate sod 100mg capsule PO SCH (08:17)
[2022-05-12] MEDS: fluticasone nasal spray 16GM bottle NS SCH ×2 (08:26→20:41)
--- NOTE | 2022-05-12 12:29 | NUR ---
ACCEPTED AT [facility] Neftaly has been accepted at [facility]. They have requested a PPD, Physician's Report, and 30 day supply of medications. It is unknown when a bed will be available. BROCK Whitaker
--- NOTE | 2022-05-12 15:59 | NUR ---
DESCRIPTION Daily therapeutic groups supporting the crisis-recovery environment, and to meet medical necessity aligned with the acuity of clients. TOPIC Goals to hang on to. INTERVENTION Therapeutic communication, active listening, redirection as needed, introduction of peer support, validation by peers, coping skills and psychosocial education. Secondarily: intellectual and physical activity, peer and staff companionship, alleviating and discouraging isolation. RESPONSE Pt was engaged as evidenced by listening and chiming in several times. Client tends to sit in the same chair, and listen. When asked how he was doing, and what supports him, client stated, "I've been through this before...I'm waiting for a placement, hoping it comes through...I was in a place in the [place] once for two months...so I get this." Client was relaxed as evident by relaxed posture, tone of voice, choice of words, and self-reporting. TREATMENT Until stable, client requires time in a safe and therapeutic environment that employs a multidisciplinary approach to care (psychiatry, specialized nursing, social work, 1:1 support, therapeutic groups, and peer support).
--- NOTE | 2022-05-12 18:12 | NUR ---
Nursing Progress Note Problem: Admitted from ER overflow for DTS/GD. He has been residing at [facility] for the past two weeks, which according to the patient has caused increase in his depression. Prior to that he was at an IMD in [place]. Pt reports some thoughts of suicide with plan to break his neck from falling off a chair or hanging himself. Pt also believes he has an implant in which he can be controlled with. Interventions: Provided a safe and supportive environment, ensured contract for safety, provided clear and simple instructions, ensured contract for safety, provided active listening and positive encouragement, and maintained Q 15min safety checks. Response: RN received pt. asleep in bed at start of shift. Pt. awoken by roommate and went to community to watch TV before breakfast. Pt. took all medications and went back to his room to sleep more. Pt. awoke mid-morning and observed watching TV in community. 1:1 assessment done in community room. Pt. continues to report hearing voices that tell him negative things. Pt. gives minimal information during interview. Pt. is socially withdrawn. Plan: Pt. requires a safe and supportive environment, medication titration until effective dose, needs to be monitored for crisis stabilization, and a viable plan for food, water & care home for discharge
[2022-05-12 20:30] VITALS: BP 119/78
[2022-05-12] MEDS: clozapine 25mg tablet PO SCH (20:42)
[2022-05-12] MEDS: clozapine 100mg tablet PO SCH (20:44)
--- NOTE | 2022-05-12 23:38 | NUR ---
[place] Progress Note Problem: Admitted from ER overflow for DTS/GD. He has been residing at [facility] and [facility] for the past two weeks, which according to the patient has caused increase in his depression. Prior to that he was at an IMD in [place]. Pt reports some thoughts of suicide with plan to break his neck from falling off a chair or hanging himself. Pt also believes he has an implant in which he can be controlled with. Interventions: Provided a safe and supportive environment, ensured contract for safety, provided clear and simple instructions, ensured contract for safety, provided active listening and positive encouragement, and maintained Q 15min safety checks. Response: Pt was in the group room having dinner at change of shift. Pt is pleasant, denies s/i. Pt states he has no needs and is feeling good. Pt spent evening watching tv, took HS meds and had a snack before going to bed. Pt reports he has been sleeping well. Plan: Pt. requires a safe and supportive environment, medication titration until effective dose, needs to be monitored for crisis stabilization, and a viable plan for food, water & fci for discharge
[2022-05-13 07:58] VITALS: BP 99/63
[2022-05-13] MEDS: lisinopril 2.5mg tablet PO SCH (08:00)
[2022-05-13] MEDS: vitamin E 400 unit capsule PO SCH (08:25)
[2022-05-13] MEDS: aspirin 81mg, enteric-coated 1 TAB TABLET.DR PO SCH (08:25)
[2022-05-13] MEDS: LORazepam 1 MG tablet PO SCH ×3 (08:25→21:30)
[2022-05-13] MEDS: atorvastatin 20mg tablet PO SCH (08:25)
[2022-05-13] MEDS: fenofibrate 145mg tablet PO SCH (08:25)
[2022-05-13] MEDS: metFORMIN 500mg tablet PO SCH ×3 (08:25→21:29)
[2022-05-13] MEDS: cholecalciferol (vitamin D3) 1,000 unit (25mcg) tablet PO SCH (08:25)
[2022-05-13] MEDS: docusate sod 100mg capsule PO SCH (08:26)
[2022-05-13] MEDS: fluticasone nasal spray 16GM bottle NS SCH ×2 (08:29→21:30)
--- NOTE | 2022-05-13 17:56 | NUR ---
Nursing Progress Note Problem: Admitted from ER overflow for DTS/GD. He has been residing at [facility] for the past two weeks, which according to the patient has caused increase in his depression. Prior to that he was at an IMD in [place]. Pt reports some thoughts of suicide with plan to break his neck from falling off a chair or hanging himself. Pt also believes he has an implant in which he can be controlled with. Interventions: Provided a safe and supportive environment, ensured contract for safety, provided clear and simple instructions, ensured contract for safety, provided active listening and positive encouragement, and maintained Q 15min safety checks. Response: RN received pt. asleep in bed at start of shift. Pt. awoke for breakfast and all medications and went back to his room and went back to sleep. Pt. awoke mid-morning and observed watching TV in community. 1:1 assessment done in community room. Pt. continues to report hearing voices that tell him negative things. Pt. gives minimal information during interview and appears agitated with RNs questions. Pt. is socially withdrawn. Pt. observed playing Yatzee in the community room with male and female peer. Plan: Pt. requires a safe and supportive environment, medication titration until effective dose, needs to be monitored for crisis stabilization, and a viable plan for food, water & alf for discharge
[2022-05-13 20:19] VITALS: BP 138/80
[2022-05-13] MEDS: clozapine 25mg tablet PO SCH (21:29)
[2022-05-13] MEDS: clozapine 100mg tablet PO SCH (21:29)
--- NOTE | 2022-05-14 01:30 | NUR ---
Nursing Progress Note Problem: Admitted from ER overflow for DTS/GD. He has been residing at [facility] and [facility] [place] for the past two weeks, which according to the patient has caused increase in his depression. Prior to that he was at an IMD in [place]. Pt reports some thoughts of suicide with plan to break his neck from falling off a chair or hanging himself. Pt also believes he has an implant in which he can be controlled with. Interventions: Provided a safe and supportive environment, ensured contract for safety, provided clear and simple instructions, ensured contract for safety, provided active listening and positive encouragement, and maintained Q 15min safety checks. Response: Pt up in group room at start of shift. He remained in group room until bedtime talking quietly with a female Pt. Pt was unwilling to answer questions while visiting with the other pt then he went to bed and went to sleep. Plan: Pt. requires a safe and supportive environment, medication titration until effective dose, needs to be monitored for crisis stabilization, and a viable plan for food, water & intermediate for discharge
[2022-05-14] MEDS: fenofibrate 145mg tablet PO SCH (07:56)
[2022-05-14] MEDS: LORazepam 1 MG tablet PO SCH ×3 (07:56→20:36)
[2022-05-14] MEDS: metFORMIN 500mg tablet PO SCH ×3 (07:56→20:37)
[2022-05-14] MEDS: fluticasone nasal spray 16GM bottle NS SCH ×2 (07:56→20:00)
[2022-05-14] MEDS: atorvastatin 20mg tablet PO SCH (07:56)
[2022-05-14] MEDS: vitamin E 400 unit capsule PO SCH (07:56)
[2022-05-14] MEDS: docusate sod 100mg capsule PO SCH (07:56)
[2022-05-14] MEDS: aspirin 81mg, enteric-coated 1 TAB TABLET.DR PO SCH (07:57)
[2022-05-14] MEDS: cholecalciferol (vitamin D3) 1,000 unit (25mcg) tablet PO SCH (07:57)
[2022-05-14] MEDS: lisinopril 2.5mg tablet PO SCH (07:57)
[2022-05-14 08:00] VITALS: BP 113/64
--- NOTE | 2022-05-14 16:18 | NUR ---
Nursing Progress Note Problem: Admitted from ER overflow for DTS/GD. He has been residing at [facility] and [facility] for the past two weeks, which according to the patient has caused increase in his depression. Prior to that he was at an IMD in [place]. Pt reports some thoughts of suicide with plan to break his neck from falling off a chair or hanging himself. Pt also believes he has an implant in which he can be controlled with. Interventions: Provided a safe and supportive environment, ensured contract for safety, provided clear and simple instructions, ensured contract for safety, provided active listening and positive encouragement, and maintained Q 15min safety checks. Response: Patient received resting quietly in bed. Joins his peers in the community room and interacts appropriately with staff and peers. Cooperative with 1:1 assessment and medications. Spends time in common areas but appears quiet/ withdrawn. Denies any mental health symptoms at this time. Endorses having occasional AH but none so far today. Plan: Pt. requires a safe and supportive environment, medication titration until effective dose, needs to be monitored for crisis stabilization, and a viable plan for food, water & fpc for discharge
[2022-05-14 19:00] VITALS: BP 119/64
[2022-05-14] MEDS: clozapine 100mg tablet PO SCH (20:36)
[2022-05-14] MEDS: clozapine 25mg tablet PO SCH (20:36)
--- NOTE | 2022-05-15 05:32 | NUR ---
Nursing Progress Note Problem: Admitted from ER overflow for DTS/GD. He has been residing at [facility] and [facility] for the past two weeks, which according to the patient has caused increase in his depression. Prior to that he was at an IMD in [place]. Pt reports some thoughts of suicide with plan to break his neck from falling off a chair or hanging himself. Pt also believes he has an implant in which he can be controlled with. Interventions: Provided a safe and supportive environment, ensured contract for safety, provided clear and simple instructions, ensured contract for safety, provided active listening and positive encouragement, and maintained Q 15min safety checks. Response: Patient was observed sitting in chair in room staring off into the distance. Patient eventually walked into the community room were he was found isolating in the corner while watching tv. Patient participated in snack and was cooperative with all night medications. Patient stayed in community room until 2130 before returning back to bed. Plan: Pt. requires a safe and supportive environment, medication titration until effective dose, needs to be monitored for crisis stabilization, and a viable plan for food, water & fdc for discharge
[2022-05-15 07:20] VITALS: BP 102/61
[2022-05-15] MEDS: LORazepam 1 MG tablet PO SCH ×3 (07:47→20:33)
[2022-05-15] MEDS: cholecalciferol (vitamin D3) 1,000 unit (25mcg) tablet PO SCH (07:47)
[2022-05-15] MEDS: metFORMIN 500mg tablet PO SCH ×3 (07:48→20:33)
[2022-05-15] MEDS: vitamin E 400 unit capsule PO SCH (07:48)
[2022-05-15] MEDS: fluticasone nasal spray 16GM bottle NS SCH ×2 (07:48→20:37)
[2022-05-15] MEDS: aspirin 81mg, enteric-coated 1 TAB TABLET.DR PO SCH (07:48)
[2022-05-15] MEDS: lisinopril 2.5mg tablet PO SCH (07:48)
[2022-05-15] MEDS: docusate sod 100mg capsule PO SCH (07:48)
[2022-05-15] MEDS: fenofibrate 145mg tablet PO SCH (07:48)
[2022-05-15] MEDS: atorvastatin 20mg tablet PO SCH (07:48)
--- NOTE | 2022-05-15 08:32 | NUR ---
Sent updated notes to [facility] office (05/08/22-05/14/22). BROCK Whitaker
--- NOTE | 2022-05-15 17:48 | NUR ---
Nursing Progress Note Problem: Admitted from ER overflow for DTS/GD. He has been residing at [facility] for the past two weeks, which according to the patient has caused increase in his depression. Prior to that he was at an IMD in [place]. Pt reports some thoughts of suicide with plan to break his neck from falling off a chair or hanging himself. Pt also believes he has an implant in which he can be controlled with. Interventions: Provided a safe and supportive environment, ensured contract for safety, provided clear and simple instructions, ensured contract for safety, provided active listening and positive encouragement, and maintained Q 15min safety checks. Response: Patient received resting quietly in bed. Joins his peers in the community room for meals and interacts appropriately. Patient is generally quiet and withdrawn but does spend time in common areas. Cooperative with 1:1 assessment and medications. Denies any suicidal or homicidal ideation. Endorses depression that comes and goes. Endorses occasional AH which have lessened since his admission. Patient takes short naps during the day. Plan: Pt. requires a safe and supportive environment, medication titration until effective dose, needs to be monitored for crisis stabilization, and a viable plan for food, water & fci for discharge
[2022-05-15 19:29] VITALS: BP 92/63
[2022-05-15] MEDS: clozapine 100mg tablet PO SCH (20:32)
[2022-05-15] MEDS: clozapine 25mg tablet PO SCH (20:33)
--- NOTE | 2022-05-16 05:24 | NUR ---
Nursing Progress Note Problem: Admitted from ER overflow for DTS/GD. He has been residing at [facility] and [facility] for the past two weeks, which according to the patient has caused increase in his depression. Prior to that he was at an IMD in [place]. Pt reports some thoughts of suicide with plan to break his neck from falling off a chair or hanging himself. Pt also believes he has an implant in which he can be controlled with. Interventions: Provided a safe and supportive environment, ensured contract for safety, provided clear and simple instructions, ensured contract for safety, provided active listening and positive encouragement, and maintained Q 15min safety checks. Response: Patient was received sitting in the chair in his room watching as patients and staffed walked by. Patient eventually made his way to the community room where he stayed until after snack. Patient took all night medications without issue and complained about his roommate messing up the bathroom. Patient was given some new toilet paper and went to bed. Plan: Pt. requires a safe and supportive environment, medication titration until effective dose, needs to be monitored for crisis stabilization, and a viable plan for food, water & fdc for discharge
[2022-05-16] MEDS: fluticasone nasal spray 16GM bottle NS SCH ×2 (07:17→20:27)
[2022-05-16] MEDS: vitamin E 400 unit capsule PO SCH (07:17)
[2022-05-16] MEDS: fenofibrate 145mg tablet PO SCH (07:18)
[2022-05-16] MEDS: LORazepam 1 MG tablet PO SCH ×3 (07:18→20:21)
[2022-05-16] MEDS: docusate sod 100mg capsule PO SCH (07:18)
[2022-05-16] MEDS: metFORMIN 500mg tablet PO SCH ×3 (07:18→20:21)
[2022-05-16] MEDS: atorvastatin 20mg tablet PO SCH (07:18)
[2022-05-16] MEDS: aspirin 81mg, enteric-coated 1 TAB TABLET.DR PO SCH (07:18)
[2022-05-16] MEDS: cholecalciferol (vitamin D3) 1,000 unit (25mcg) tablet PO SCH (07:18)
[2022-05-16] MEDS: lisinopril 2.5mg tablet PO SCH (07:18)
[2022-05-16 07:19] VITALS: BP 114/78
--- NOTE | 2022-05-16 09:48 | NUR ---
F/u 05/16: Pt PO ~75-100% avg most meals meeting estimated needs. LBM 05/16 per EMR. Noted last Glu check 04/18 per EMR; GERARDO d/w RN regarding routine Glu checks if MD agreeable given DM hx. No nutrition intervention at this time. Will continue to monitor. Recommendations: 1. Continue CHO controlled/heart healthy diet 2. Routine bowel care 3. Weekly scaled wts Addendum: 05/16/22 at [address] Amended: Links added.
--- NOTE | 2022-05-16 16:21 | NUR ---
Nursing Progress Note Problem: Admitted from ER overflow for DTS/GD. He has been residing at [facility] and [facility] for the past two weeks, which according to the patient has caused increase in his depression. Prior to that he was at an IMD in [place]. Pt reports some thoughts of suicide with plan to break his neck from falling off a chair or hanging himself. Pt also believes he has an implant in which he can be controlled with. Interventions: Provided a safe and supportive environment, ensured contract for safety, provided clear and simple instructions, ensured contract for safety, provided active listening and positive encouragement, and maintained Q 15min safety checks. Response: Patient received resting quietly in bed. Cooperative with 1:1 assessment and medications. Continues to endorse AH+ but minimizes and does not elaborate on what they say. Patient also endorses feelings of depression but denies suicidal or homicidal ideation. Eats meals in the community room and interacts appropriately. Spends much of the day in common areas but is quiet/ withdrawn. Plan: Pt. requires a safe and supportive environment, medication titration until effective dose, needs to be monitored for crisis stabilization, and a viable plan for food, water & custodial for discharge
[2022-05-16 19:00] VITALS: BP 103/67
[2022-05-16] MEDS: clozapine 100mg tablet PO SCH (20:20)
[2022-05-16] MEDS: clozapine 25mg tablet PO SCH (20:21)
--- NOTE | 2022-05-17 05:11 | NUR ---
Nursing Progress Note Problem: Admitted from ER overflow for DTS/GD. He has been residing at [facility] and [facility] for the past two weeks, which according to the patient has caused increase in his depression. Prior to that he was at an IMD in [place]. Pt reports some thoughts of suicide with plan to break his neck from falling off a chair or hanging himself. Pt also believes he has an implant in which he can be controlled with. Interventions: Provided a safe and supportive environment, ensured contract for safety, provided clear and simple instructions, ensured contract for safety, provided active listening and positive encouragement, and maintained Q 15min safety checks. Response: Patient was received sitting in chair in from of rec room. Patient was upset about his roommate complaining how he keeps messing up the bathroom and spilling things everywhere and its making him uncomfortable. Patient sat in chair until roommate left the room and then he retuned to bed until snack time. Patient participated in snack and took all night medications without difficulty. Patient stayed in community room until eventually choosing to go to bed. Plan: Pt. requires a safe and supportive environment, medication titration until effective dose, needs to be monitored for crisis stabilization, and a viable plan for food, water & senior living for discharge
[2022-05-17 07:34] VITALS: BP 102/58
[2022-05-17] MEDS: fluticasone nasal spray 16GM bottle NS SCH ×2 (08:22→20:00)
[2022-05-17] MEDS: LORazepam 1 MG tablet PO SCH ×3 (08:22→21:16)
[2022-05-17] MEDS: metFORMIN 500mg tablet PO SCH ×3 (08:23→21:16)
[2022-05-17] MEDS: docusate sod 100mg capsule PO SCH (08:23)
[2022-05-17] MEDS: atorvastatin 20mg tablet PO SCH (08:23)
[2022-05-17] MEDS: cholecalciferol (vitamin D3) 1,000 unit (25mcg) tablet PO SCH (08:23)
[2022-05-17] MEDS: aspirin 81mg, enteric-coated 1 TAB TABLET.DR PO SCH (08:23)
[2022-05-17] MEDS: fenofibrate 145mg tablet PO SCH (08:24)
[2022-05-17] MEDS: vitamin E 400 unit capsule PO SCH (08:24)
--- NOTE | 2022-05-17 17:12 | NUR ---
Nursing Progress Note Problem: Admitted from ER overflow for DTS/GD. He has been residing at [facility] for the past two weeks, which according to the patient has caused increase in his depression. Prior to that he was at an IMD in [place]. Pt reports some thoughts of suicide with plan to break his neck from falling off a chair or hanging himself. Pt also believes he has an implant in which he can be controlled with. Interventions: Provide medication administration & medication management; Maintained a safe & supportive environment; Clear & simple instructions; Direction & encouragement regarding performance of ADLs; monitored behaviors & maintained clear boundaries; Patient physical assessment & 1:1 patient interview; Therapeutic conversation & active listening; Patient education & monitoring. Response: Received patient while he was waking up in the morning and getting dressed to go to the Community Room. Patient pleasant and slightly withdrawn this morning. Patient ate breakfast in the Community Room and then self-isolated in his room for the rest of the morning. Patient met with Dr. Ramirez and he informed this Employment Law Specialist that the patient was distraught about his roommate and his belongings being used by the roommate without asking. Dr. Ramirez informed that this was causing the patient a great deal of unrest and asked if we could either move the patient to another room or his roommate to another room. Met with the patient and he was informed we would be moving his roommate within the hour and he was pleased that this was going to happen. Patient thanked me for making this move. Patient slept during the afternoon, but participated in snacks both times today. Patient reported that he has heard voices in the past, but that he had not heard any internal voices today. Patient denies AH/VH at this time. Plan: Patient requires a safe and supportive environment, medication titration until effective dose, needs to be monitored for crisis stabilization, and a viable plan for food, water & mcc for discharge
[2022-05-17 19:00] VITALS: BP 97/59
[2022-05-17] MEDS: clozapine 25mg tablet PO SCH (21:16)
[2022-05-17] MEDS: clozapine 100mg tablet PO SCH (21:16)
--- NOTE | 2022-05-18 05:17 | NUR ---
Nursing Progress Note Problem: Admitted from ER overflow for DTS/GD. He has been residing at [facility] and [facility] for the past two weeks, which according to the patient has caused increase in his depression. Prior to that he was at an IMD in [place]. Pt reports some thoughts of suicide with plan to break his neck from falling off a chair or hanging himself. Pt also believes he has an implant in which he can be controlled with. Interventions: Provide medication administration & medication management; Maintained a safe & supportive environment; Clear & simple instructions; Direction & encouragement regarding performance of ADLs; monitored behaviors & maintained clear boundaries; Patient physical assessment & 1:1 patient interview; Therapeutic conversation & active listening; Patient education & monitoring. Response: Patient is pleasant and cooperative with care; compliant with medication. Denies SI, HI, A/VH; no delusional thought content expressed this shift. He is social with staff and expressing he wishes conservator would get him placement as he is bored and feeling cooped up. Patient watched football and participated in HS snack prior to bed; observed sleeping and does not appear to be having difficulty. Clothing washed this shift. Plan: Patient requires a safe and supportive environment, medication titration until effective dose, needs to be monitored for crisis stabilization, and a viable plan for food, water & nursing home for discharge
[2022-05-18] MEDS ORDERED: NICO-907 BC (07:12)
[2022-05-18] MEDS ORDERED: ASPI-1071 PO (07:12)
[2022-05-18] MEDS ORDERED: FENO145T25 PO (07:12)
[2022-05-18] MEDS ORDERED: ATOR40TA71 PO (07:12)
[2022-05-18] MEDS ORDERED: HYDR-3686 PO ×2 (07:12)
[2022-05-18] MEDS ORDERED: METF-1203 PO (07:16)
[2022-05-18] MEDS ORDERED: CLOZ200T8 PO ×2 (07:16)
[2022-05-18] MEDS ORDERED: DOCU100C40 PO (07:16)
[2022-05-18] MEDS ORDERED: LORA10TA65 PO (07:16)
[2022-05-18] MEDS ORDERED: FLUT16SP NS (07:16)
[2022-05-18] MEDS ORDERED: CHOL100046 PO (07:16)
[2022-05-18] MEDS ORDERED: ATI1T PO (07:16)
[2022-05-18] MEDS ORDERED: CLOZ25TA12 PO ×2 (07:20)
[2022-05-18] MEDS ORDERED: LORA-269 PO ×2 (07:20)
[2022-05-18 08:00] VITALS: BP 118/69
[2022-05-18] MEDS: fluticasone nasal spray 16GM bottle NS SCH ×2 (08:06→20:54)
[2022-05-18] MEDS: LORazepam 1 MG tablet PO SCH ×3 (08:06→20:53)
[2022-05-18] MEDS: atorvastatin 20mg tablet PO SCH (08:07)
[2022-05-18] MEDS: docusate sod 100mg capsule PO SCH (08:07)
[2022-05-18] MEDS: aspirin 81mg, enteric-coated 1 TAB TABLET.DR PO SCH (08:07)
[2022-05-18] MEDS: metFORMIN 500mg tablet PO SCH ×3 (08:07→20:53)
[2022-05-18] MEDS: vitamin E 400 unit capsule PO SCH (08:08)
[2022-05-18] MEDS: fenofibrate 145mg tablet PO SCH (08:08)
[2022-05-18] MEDS: cholecalciferol (vitamin D3) 1,000 unit (25mcg) tablet PO SCH (08:08)
--- NOTE | 2022-05-18 17:31 | NUR ---
Nursing Progress Note Problem: Admitted from ER overflow for DTS/GD. He has been residing at [facility] for the past two weeks, which according to the patient has caused increase in his depression. Prior to that he was at an IMD in [place]. Pt reports some thoughts of suicide with plan to break his neck from falling off a chair or hanging himself. Pt also believes he has an implant in which he can be controlled with. Interventions: Provide medication administration & medication management; Maintained a safe & supportive environment; Clear & simple instructions; Direction & encouragement regarding performance of ADLs; monitored behaviors & maintained clear boundaries; Patient physical assessment & 1:1 patient interview; Therapeutic conversation & active listening; Patient education & monitoring. Response: Received the patient when he was sitting in the Community Room before breakfast. Patient was pleasant when greeted and informed Im having a good day. Patient took his medications without hesitation then returned back to his room to lie down. Entered patients room and spoke with the patient 1:1 to check in on him. Patient reported that he felt bad when he complained to me yesterday about his old roommate and the things that he was doing. Informed the patient that the patient had moved out and was doing well and not to worry any longer. Patient continued asking questions about going to [facility] when he leaves here, and is hoping that it works out. Patient voiced positive influence he has received from other employees who work here at [facility]. Informed the patient that I had always heard the same regarding [facility] and understood from others that it would be a good placement option for him. Patient asked if I knew when he was going and informed him that I would attempt to get an update from sometime today. I was unable to get an update today regarding the patients transfer to [facility] but will make an attempt tomorrow. Left message to Plan: Patient requires a safe and supportive environment, medication titration until effective dose, needs to be monitored for crisis stabilization, and a viable plan for food, water & half-way for discharge
[2022-05-18 19:49] VITALS: BP 108/74
[2022-05-18] MEDS: clozapine 100mg tablet PO SCH (20:53)
[2022-05-18] MEDS: clozapine 25mg tablet PO SCH (20:53)
--- NOTE | 2022-05-19 04:36 | NUR ---
Nursing Progress Note Problem: Admitted from ER overflow for DTS/GD. He has been residing at [facility] and [facility] for the past two weeks, which according to the patient has caused increase in his depression. Prior to that he was at an IMD in [place]. Pt reports some thoughts of suicide with plan to break his neck from falling off a chair or hanging himself. Pt also believes he has an implant in which he can be controlled with. Interventions: Provide medication administration & medication management; Maintained a safe & supportive environment; Clear & simple instructions; Direction & encouragement regarding performance of ADLs; monitored behaviors & maintained clear boundaries; Patient physical assessment & 1:1 patient interview; Therapeutic conversation & active listening; Patient education & monitoring. Response: Patient is pleasant and cooperative with care; compliant with medication. Denies SI, HI, A/VH; no apparent delusions were expressed. He is social with staff, participated in HS snack and watched TV prior to bed; observed sleeping and does not appear to be having difficulty. Plan: Patient requires a safe and supportive environment, medication titration until effective dose, needs to be monitored for crisis stabilization, and a viable plan for food, water & fci for discharge
[2022-05-19 07:56] VITALS: BP 112/63
[2022-05-19] MEDS: fluticasone nasal spray 16GM bottle NS SCH ×2 (08:10→20:15)
[2022-05-19] MEDS: LORazepam 1 MG tablet PO SCH ×2 (08:11→16:01)
[2022-05-19] MEDS: aspirin 81mg, enteric-coated 1 TAB TABLET.DR PO SCH (08:11)
[2022-05-19] MEDS: vitamin E 400 unit capsule PO SCH (08:11)
[2022-05-19] MEDS: metFORMIN 500mg tablet PO SCH ×3 (08:11→20:15)
[2022-05-19] MEDS: atorvastatin 20mg tablet PO SCH (08:11)
[2022-05-19] MEDS: docusate sod 100mg capsule PO SCH (08:11)
[2022-05-19] MEDS: cholecalciferol (vitamin D3) 1,000 unit (25mcg) tablet PO SCH (08:12)
[2022-05-19] MEDS: fenofibrate 145mg tablet PO SCH (08:13)
[2022-05-19] MEDS ORDERED: hydrOXYzine 25 MG tablet PO PRN (12:10)
[2022-05-19] MEDS ORDERED: CLOZ100T13 PO (12:45)
[2022-05-19] MEDS ORDERED: HYDR50TA65 PO (12:45)
[2022-05-19] MEDS ORDERED: LORA-269 PO (12:45)
--- NOTE | 2022-05-19 15:18 | NUR ---
THERAPEUTIC GROUP Client attended group, sitting in a chair near the door. Group focus built on the morning group topic of core beliefs about ourselves, adding the topic of emotions, emotions to reactions/behaviors, and skill building. Modality was group/peer talk, handouts, and review. Client was pleasant, remained in a chair to the side, did not engage with peers or handouts, answered direct questions with a "yes" or "no", stayed the entirety of group.
--- NOTE | 2022-05-19 17:18 | NUR ---
Nursing Progress Note Problem: Admitted from ER overflow for DTS/GD. He has been residing at [facility] for the past two weeks, which according to the patient has caused increase in his depression. Prior to that he was at an IMD in [place]. Pt reports some thoughts of suicide with plan to break his neck from falling off a chair or hanging himself. Pt also believes he has an implant in which he can be controlled with. Interventions: Provide medication administration & medication management; Maintained a safe & supportive environment; Clear & simple instructions; Direction & encouragement regarding performance of ADLs; monitored behaviors & maintained clear boundaries; Patient physical assessment & 1:1 patient interview; Therapeutic conversation & active listening; Patient education & monitoring. Response: Patient was in the Community Room drinking coffee and watching TV. Patient reported he had slept well and took his morning medications without hesitation. Patient informed that he was not hearing voices or having hallucinations (AV/VH) since yesterday. Patient sat in the Community Room for a couple of hours after breakfast watching TV, then retreated to his room after that time. Patient is currently waiting to be transferred to [facility], and informed this telegraphic typewriter operator that I think its a good place for me to go, but I have enjoyed this place. Everyone is nice and the food is good. Patient self isolates in the Community Room away from others during mealtime, and will attend Group Meetings. Informed the patient that I had left a message for Rashida, the Real Time Analyst, and had not heard back from her at this time. Patient stated Well, Ill just wait. Plan: Patient requires a safe and supportive environment, medication titration until effective dose, needs to be monitored for crisis stabilization, and a viable plan for food, water & detention for discharge
[2022-05-19 19:58] VITALS: BP 109/66
[2022-05-19] MEDS: clozapine 100mg tablet PO SCH (20:16)
--- NOTE | 2022-05-20 04:29 | NUR ---
Nursing Progress Note Problem: Admitted from ER overflow for DTS/GD. He has been residing at [facility] and [facility] for the past two weeks, which according to the patient has caused increase in his depression. Prior to that he was at an IMD in [place]. Pt reports some thoughts of suicide with plan to break his neck from falling off a chair or hanging himself. Pt also believes he has an implant in which he can be controlled with. Interventions: Provide medication administration & medication management; Maintained a safe & supportive environment; Clear & simple instructions; Direction & encouragement regarding performance of ADLs; monitored behaviors & maintained clear boundaries; Patient physical assessment & 1:1 patient interview; Therapeutic conversation & active listening; Patient education & monitoring. Response: Patient is pleasant and cooperative with care; compliant with medication. Clozapine was increased to 500mg this shift; no ASE observed at this time. Denies SI, HI, A/VH; no apparent delusions expressed. Patient watched TV and participated in HS snack prior to bed; observed sleeping and does not appear to be having difficulty. Plan: Patient requires a safe and supportive environment, medication titration until effective dose, needs to be monitored for crisis stabilization, and a viable plan for food, water & alf for discharge
[2022-05-20 07:29] VITALS: BP 109/67
[2022-05-20] MEDS: cholecalciferol (vitamin D3) 1,000 unit (25mcg) tablet PO SCH (08:09)
[2022-05-20] MEDS: atorvastatin 20mg tablet PO SCH (08:09)
[2022-05-20] MEDS: vitamin E 400 unit capsule PO SCH (08:09)
[2022-05-20] MEDS: aspirin 81mg, enteric-coated 1 TAB TABLET.DR PO SCH (08:09)
[2022-05-20] MEDS: fenofibrate 145mg tablet PO SCH (08:09)
[2022-05-20] MEDS: LORazepam 1 MG tablet PO SCH ×2 (08:09→14:10)
[2022-05-20] MEDS: metFORMIN 500mg tablet PO SCH ×3 (08:09→19:57)
[2022-05-20] MEDS: docusate sod 100mg capsule PO SCH (08:09)
[2022-05-20] MEDS: fluticasone nasal spray 16GM bottle NS SCH ×2 (08:11→19:57)
--- NOTE | 2022-05-20 17:34 | NUR ---
Nursing Progress Note Problem: Admitted from ER overflow for DTS/GD. He has been residing at [facility] for the past two weeks, which according to the patient has caused increase in his depression. Prior to that he was at an IMD in [place]. Pt reports some thoughts of suicide with plan to break his neck from falling off a chair or hanging himself. Pt also believes he has an implant in which he can be controlled with. Interventions: Provided a safe and supportive environment, ensured contract for safety, provided clear and simple instructions, ensured contract for safety, provided active listening and positive encouragement, and maintained Q 15min safety checks. Response: RN received pt. asleep in bed at start of shift. Pt. awoke for breakfast and took all medication. Pt. went back to his room and napped some before coming out to watch TV. Pt. informed that he has been accepted to [facility] in [place] and will be leaving tomorrow. 1:1 done at bedside, when asked how he feels about going to [facility], pt. shrugs his shoulders and states, ok, I guess. Pt. denies SI/HI, VH, but states he still sometimes hears voices. COVID BINAX test done and was negative. Plan: Pt. requires a safe and supportive environment, medication titration until effective dose, needs to be monitored for crisis stabilization, and a viable plan for food, water & senior care for discharge
[2022-05-20] MEDS: clozapine 100mg tablet PO SCH (19:58)
[2022-05-20 20:00] VITALS: BP 113/71
--- NOTE | 2022-05-20 23:45 | NUR ---
Nursing Progress Note : [facility] Nursing Progress Note Problem: Admitted from ER overflow for DTS/GD. He has been residing at [facility] for the past two weeks, which according to the patient has caused increase in his depression. Prior to that he was at an [facility] in [place]. Pt reports some thoughts of suicide with plan to break his neck from falling off a chair or hanging himself. Pt also believes he has an implant in which he can be controlled with. Interventions: Provided a safe and supportive environment, ensured contract for safety, provided clear and simple instructions, ensured contract for safety, provided active listening and positive encouragement, and maintained Q 15min safety checks. Response: RN received pt. sitting at the table in community room watching TV. Pt cooperative with care and states he is doing OK and not looking forward to the drive tomorrow morning for placement. Pt upset about wanting to get his belongings from his previous facility he came from. Pt participated in snacks and took all HS medications without issue and went to bed. Plan: Pt. requires a safe and supportive environment, medication titration until effective dose, needs to be monitored for crisis stabilization, and a viable plan for food, water & detention for discharge
[2022-05-21] MEDS: docusate sod 100mg capsule PO SCH (07:49)
[2022-05-21] MEDS: vitamin E 400 unit capsule PO SCH (07:49)
[2022-05-21] MEDS: fenofibrate 145mg tablet PO SCH (07:49)
[2022-05-21] MEDS: fluticasone nasal spray 16GM bottle NS SCH (07:49)
[2022-05-21] MEDS: cholecalciferol (vitamin D3) 1,000 unit (25mcg) tablet PO SCH (07:49)
[2022-05-21] MEDS: aspirin 81mg, enteric-coated 1 TAB TABLET.DR PO SCH (07:49)
[2022-05-21] MEDS: atorvastatin 20mg tablet PO SCH (07:49)
[2022-05-21] MEDS: LORazepam 1 MG tablet PO SCH (07:49)
[2022-05-21] MEDS: metFORMIN 500mg tablet PO SCH (07:49)
[2022-05-21 08:00] VITALS: BP 131/77
--- NOTE | 2022-05-21 09:04 | NUR ---
DISCHARGE NOTE: Pt was discharged at 0807. He ambulated off the unit accompanied by PCT down to [place] [employer] tanker truck driver awaiting him. All belongings returned. Filled Rx's and discharge paperwork handed to the company tanker truck driver.
== END 2022-05-21 08:07 | DRG 750 ==
LOC: ER 12:47 → ADULT MH 04-06 22:14
PROVIDERS: ADMIT Psychiatry & Neurology Psychiatry; ATTEND Psychiatry & Neurology Psychiatry
DX: F25.0 Schizoaffective disorder, bipolar type (principal); R45.851 Suicidal ideations; E11.9 Type 2 diabetes mellitus without complications; E78.5 Hyperlipidemia, unspecified; Z20.822 Contact with and (suspected) exposure to COVID-19; F12.90 Cannabis use, unspecified, uncomplicated; F17.210 Nicotine dependence, cigarettes, uncomplicated; F32.A Depression, unspecified; M54.50 Low back pain, unspecified; E78.1 Pure hyperglyceridemia; Z60.2 Problems related to living alone; R68.2 Dry mouth, unspecified; E66.9 Obesity, unspecified; I10 Essential (primary) hypertension; G89.29 Other chronic pain; F10.90 Alcohol use, unspecified, uncomplicated; K80.20 Calculus of gallbladder without cholecystitis without obstruction; G47.00 Insomnia, unspecified; K59.00 Constipation, unspecified; Z83.3 Family history of diabetes mellitus; Z79.899 Other long term (current) drug therapy; Z87.19 Personal history of other diseases of the digestive system; Z87.442 Personal history of urinary calculi; Z91.14 Patient's other noncompliance with medication regimen; Z56.0 Unemployment, unspecified; Z88.8 Allergy status to other drugs, medicaments and biological substances; Z81.8 Family history of other mental and behavioral disorders; Z68.33 Body mass index [BMI] 33.0-33.9, adult
CPT/HCPCS: 36415; 71045; 80053; 80061; 80305; 80320; 81003; 82248; 82948; 83036; 84443; 85025; 87081; 87811; 99285; J7120; Q0177